=== PATIENT | male | born 1960 | race Caucasian/White ===

== ENCOUNTER 2018-08-18 13:45 | Inpatient (IN) | payer MEDICARE, MEDICAID ==
[~2018-08-18] VITALS: Ht 182.9 cm; Wt 89.4 kg
[2018-08-18 14:20] LABS: BASO # 0.1 x10^3/uL (0.0-0.2); BASO % 1 % (0-3); EOS # 0.2 x10^3/uL (0.0-0.7); EOS % 2 % (0-3); HEMATOCRIT 44.5 % (39.0-53.0); LYMPH # 2.9 x10^3/uL (1.0-4.8); LYMPH % 30 % (24-48); MEAN CORPUSCULAR HEMOGLOBIN 31 pg (25-35); MEAN CORPUSCULAR HGB CONC 34 g/dL (31-37); MEAN CORPUSCULAR VOLUME 91 fL (79-100); MONO % 10 % (0-9); NEUT # 5.5 x10^3uL (1.8-7.7); NEUT % 57 % (31-73); PLATELET COUNT 234 x10^3/uL (140-400); RED BLOOD COUNT 4.87 x10^6/uL (4.30-5.70); RED CELL DISTRIBUTION WIDTH 13.3 % (11.5-14.5); WHITE BLOOD COUNT 9.6 x10^3/uL (4.0-11.0)
[2018-08-18 14:40] LABS: ALBUMIN 4.4 g/dL (3.4-5.0); ALBUMIN/GLOBULIN RATIO 1.5 (1.0-1.7); CALCIUM 8.8 mg/dL (8.5-10.1); CREATININE 1.3 mg/dL (0.7-1.3); GFR 56.3; MAGNESIUM 1.9 mg/dL (1.8-2.4); POTASSIUM 4.3 mmol/L (3.5-5.1); TOTAL BILIRUBIN 0.3 mg/dL (0.2-1.0); TOTAL PROTEIN 7.4 g/dL (6.4-8.2)
[2018-08-18] MEDS ORDERED: DEXTROSE ORAL GEL 15 GM TUBE. ONE (14:42)
[2018-08-18] MEDS ORDERED: DEXTROSE 50% 25 GM / 50ML DISP.SYRIN. IV ONE ×2 (14:42→14:45)
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
[2018-08-18 16:56] LABS: BACTERIA,URINE FEW /HPF (0-FEW); BILIRUBIN,URINE NEG (NEG); CLARITY,URINE CLEAR; COLOR,URINE YELLOW; GLUCOSE,URINE NEG (NEG); NITRITE,URINE NEG (NEG); RBC,URINE 0 /HPF (0-2); UROBILINOGEN,URINE 0.2 mg/dL (0.2 mg/dL); WBC,URINE RARE /HPF (0-4)
[2018-08-18 18:32] VITALS: BP 137/70
[2018-08-18] MEDS ORDERED: ATOR10TA60 PO (20:05)
[2018-08-18] MEDS ORDERED: BUPR150T11 PO (20:05)
[2018-08-18] MEDS ORDERED: LEVO150T PO (20:05)
[2018-08-18] MEDS ORDERED: MELA3TAB2 PO (20:05)
[2018-08-18] MEDS ORDERED: GABA300C8 PO (20:12)
[2018-08-18] MEDS ORDERED: INSU100V13 SQ (20:12)
[2018-08-18] MEDS ORDERED: TAMS0.4C2 PO (20:12)
[2018-08-18] MEDS ORDERED: RANI150T2 PO (20:12)
[2018-08-18] MEDS ORDERED: INSU100I17 SQ (20:12)
[2018-08-18] MEDS: GABAPENTIN 300 MG CAPSULE. PO SCH (20:47)
[2018-08-18] MEDS ORDERED: INSULIN GLARGINE 300 UNITS/3 ML INSULN.PEN. SQ SCH (21:00)
[2018-08-18] MEDS ORDERED: FAMOTIDINE 20 MG TABLET PO SCH (21:00)
[2018-08-18] MEDS ORDERED: ATORVASTATIN CALCIUM 10 MG TABLET. PO SCH (21:00)
[2018-08-18] MEDS ORDERED: TAMSULOSIN 0.4 MG CAP.ER.24H. PO SCH (21:00)
[2018-08-18] MEDS ORDERED: MELATONIN 3 MG TABLET PO SCH (21:00)
[2018-08-18] MEDS ORDERED: LOPERAMIDE 2 MG CAPSULE PO PRN (22:45)
[2018-08-18] MEDS ORDERED: SIMETHICONE 80 MG TAB.CHEW PO PRN (22:45)
[2018-08-18] MEDS ORDERED: ACETAMINOPHEN 325 MG TABLET PO PRN (22:45)
[2018-08-18] MEDS ORDERED: LOPE2CAP PO (22:55)
[2018-08-18] MEDS ORDERED: POTA10TA10 PO (22:55)
[2018-08-18] MEDS ORDERED: LISI-338 PO (22:55)
[2018-08-18] MEDS ORDERED: FERR325T14 PO (22:55)
[2018-08-18] MEDS ORDERED: ASPI81TA50 PO (22:55)
[2018-08-18] MEDS ORDERED: LORA10TA3 PO (22:55)
[2018-08-18] MEDS ORDERED: THIA100T57 PO (22:55)
[2018-08-18] MEDS ORDERED: CHOL10003 PO (22:55)
[2018-08-18] MEDS ORDERED: CYAN10005 PO (22:55)
[2018-08-18] MEDS ORDERED: SIME125T39 PO (22:55)
[2018-08-18] MEDS ORDERED: ACET325T9 PO (22:55)
--- NOTE | 2018-08-18 23:05 | PDOC ---
Exam Note: Jaime Note: Please also refer to the separate dictated note~for this date of service dictated separately. Discussed the patient with Nursing staff reviewed the chart.~Reviewed interim history and current functioning. Reviewed vital signs,~ Labs/ Radiology~and current medications noted below. Continue current treatment with the changes noted in the dictated addendum note Assessment: Vital Signs: Vital Signs Date Time Temp Pulse Resp B/P (MAP) Pulse Ox O2 Delivery O2 Flow Rate FiO2 08/18/18 20:00 Room Air 08/18/18 18:32 97.5 66 20 137/70 (92) 99 Labs: Laboratory Tests Test 08/18/18 14:06 08/18/18 14:45 08/18/18 15:21 08/18/18 16:34 White Blood Count 9.6 x10^3/uL (4.0-11.0) Red Blood Count 4.87 x10^6/uL (4.30-5.70) Hemoglobin 15.0 g/dL (13.0-17.5) Hematocrit 44.5 % (39.0-53.0) Mean Corpuscular Volume 91 fL (79-100) Mean Corpuscular Hemoglobin 31 pg (25-35) Mean Corpuscular Hemoglobin Concent 34 g/dL (31-37) Red Cell Distribution Width 13.3 % (11.5-14.5) Platelet Count 234 x10^3/uL (140-400) Neutrophils (%) (Auto) 57 % (31-73) Lymphocytes (%) (Auto) 30 % (24-48) Monocytes (%) (Auto) 10 % (0-9) H Eosinophils (%) (Auto) 2 % (0-3) Basophils (%) (Auto) 1 % (0-3) Neutrophils # (Auto) 5.5 x10^3uL (1.8-7.7) Lymphocytes # (Auto) 2.9 x10^3/uL (1.0-4.8) Monocytes # (Auto) 1.0 x10^3/uL (0.0-1.1) Eosinophils # (Auto) 0.2 x10^3/uL (0.0-0.7) Basophils # (Auto) 0.1 x10^3/uL (0.0-0.2) Sodium Level 141 mmol/L (136-145) Potassium Level 4.3 mmol/L (3.5-5.1) Chloride Level 107 mmol/L (98-107) Carbon Dioxide Level 23 mmol/L (21-32) Anion Gap 11 (6-14) Blood Urea Nitrogen 18 mg/dL (8-26) Creatinine 1.3 mg/dL (0.7-1.3) Estimated GFR (Cockcroft-Gault) 56.3 BUN/Creatinine Ratio 14 (6-20) Glucose Level 38 mg/dL (70-99) *L Calcium Level 8.8 mg/dL (8.5-10.1) Magnesium Level 1.9 mg/dL (1.8-2.4) Total Bilirubin 0.3 mg/dL (0.2-1.0) Aspartate Amino Transferase (AST) 33 U/L (15-37) Alanine Aminotransferase (ALT) 74 U/L (16-63) H Alkaline Phosphatase 88 U/L (46-116) Total Protein 7.4 g/dL (6.4-8.2) Albumin 4.4 g/dL (3.4-5.0) Albumin/Globulin Ratio 1.5 (1.0-1.7) Glucose (Fingerstick) 35 mg/dL (70-99) *L 128 mg/dL (70-99) H Urine Collection Type Void Urine Color Yellow Urine Clarity Clear Urine pH 5.5 Urine Specific [place] 1.015 Urine Protein Neg (NEG-TRACE) Urine Glucose (UA) Neg mg/dL (NEG) Urine Ketones (Stick) Neg mg/dL (NEG) Urine Blood Neg (NEG) Urine Nitrite Neg (NEG) Urine Bilirubin Neg (NEG) Urine Urobilinogen Dipstick 0.2 mg/dL (0.2 mg/dL) Urine Leukocyte Esterase Neg (NEG) Urine RBC 0 /HPF (0-2) Urine WBC Rare /HPF (0-4) Urine Squamous Epithelial Cells None /LPF Urine Bacteria Few /HPF (0-FEW) Test 08/18/18 16:39 Glucose (Fingerstick) 271 mg/dL (70-99) H Current Medications: Meds: Current Medications Glucose (Insta-Glucose) 15 gm STK-MED ONCE .ROUTE ; Start 08/18/18 at 14:42; Stop 08/18/18 at 14:44; Status DC Dextrose 25 gm STK-MED ONCE IV ; Start 08/18/18 at 14:42; Stop 08/18/18 at 14:44 ; Status DC Dextrose 25 gm 1X ONCE IV Last administered on 08/18/18at 14:54; Start at 14:45; Stop 08/18/18 at 15:42; Status DC Tamsulosin HCl (Flomax) 0.4 mg HS PO Last administered on 08/18/18 20:47; Start 08/18/18 at 21:00 Atorvastatin Calcium (Lipitor) 10 mg QHS PO Last administered on 08/18/18 20: 47; Start 08/18/18 at 21:00 Gabapentin (Neurontin) 300 mg BID PO Last administered on 08/18/18 20:47; Start 08/18/18 at 21:00 Insulin Glargine (Lantus) 14 units BID SQ Last administered on 08/18/18 21:04 ; Start 08/18/18 at 21:00 Melatonin 6 mg QHS PO Last administered on 08/18/18 20:47; Start 08/18/18 at 21:00 Famotidine (Pepcid) 20 mg QHS PO Last administered on 08/18/18 20:47; Start at 21:00 Active Scripts Active Reported Gas Relief (Simethicone) 125 Mg Tab.chew 125 Mg PO Q6HRS PRN Tylenol (Acetaminophen) 325 Mg Tablet 500 Mg PO Q6HRS PRN Aspir-Low (Aspirin) 81 Mg Tablet.dr 1 Tab PO DAILY Lisinopril 5 Mg Tablet 1 Tab PO BID Ferrous Sulfate 325 Mg Tablet 1 Tab PO BID Vitamin B-1 (Thiamine Hcl) 100 Mg Tablet 100 Mg PO DAILY Potassium Chloride 10 Meq Tablet.er 20 Meq PO DAILY Loratadine 10 Mg Tablet 1 Tab PO DAILY Vitamin B-12 (Cyanocobalamin (Vitamin B-12)) 1,000 Mcg Tablet 1 Tab PO DAILY Vitamin D3 (Cholecalciferol (Vitamin D3)) 1,000 Unit Tablet 1 Tab PO DAILY Loperamide (Loperamide Hcl) 2 Mg Capsule 2 Mg PO Q4HRS PRN Novolog Flexpen (Insulin Aspart) 100 Unit/1 Ml Insuln.pen 8 Unit SQ TIDAC Levemir (Insulin Detemir) 100 Unit/1 Ml Vial 14 Unit SQ BID PRN Ranitidine Hcl 150 Mg Tablet 1 Tab PO HS Gabapentin 300 Mg Capsule 1 Cap PO BID Tamsulosin Hcl 0.4 Mg Cap.er.24h 1 Cap PO HS Melatonin 3 Mg Tablet 5 Mg PO HS Synthroid (Levothyroxine Sodium) 150 Mcg Tablet 1 Tab PO DAILY06 Bupropion Hcl Sr (Bupropion Hcl) 150 Mg Tablet.er 1 Tab PO DAILY Atorvastatin Calcium 10 Mg Tablet 1 Tab PO HS I have reviewed the current psychotropics carefully including drug interactions. Risk benefit ratio favors no change other than as noted in my dictated progress note. Diagnosis: Problems: (1) Hypoglycemia (2) Behavioral problem JEB WOODS MD Aug 18, 2018 23:04
[2018-08-18 23:17] VITALS: BP 121/73
[2018-08-19 05:06] VITALS: BP 102/63
[2018-08-19] MEDS ORDERED: LEVOTHYROXINE 150 MCG TABLET PO SCH (06:00)
[2018-08-19] MEDS ORDERED: INSULIN LISPRO 300 UNITS/3 ML INSULN.PEN. SQ SCH ×2 (07:30→11:30)
[2018-08-19] MEDS ORDERED: ASPIRIN 81 MG TAB.CHEW PO SCH (08:00)
[2018-08-19] MEDS ORDERED: POTASSIUM CHLORIDE 20 MEQ TABLET.ER. PO SCH (08:00)
[2018-08-19] MEDS: GABAPENTIN 300 MG CAPSULE. PO SCH (08:05)
[2018-08-19] MEDS ORDERED: THIAMINE 100 MG TABLET. PO SCH (09:00)
[2018-08-19] MEDS ORDERED: LISINOPRIL 5 MG TABLET. PO SCH (09:00)
[2018-08-19] MEDS ORDERED: CYANOCOBALAMIN (VITAMIN B-12) 1,000 MCG TABLET. PO SCH (09:00)
[2018-08-19] MEDS ORDERED: FERROUS SULFATE 325 MG TABLET. PO SCH (09:00)
[2018-08-19] MEDS ORDERED: CHOLECALCIFEROL (VITAMIN D3) 1,000 UNIT TABLET PO SCH (09:00)
[2018-08-19] MEDS ORDERED: CETIRIZINE HCL 10 MG TABLET PO SCH (09:00)
[2018-08-19] MEDS ORDERED: buPROPion XL 150 MG TAB.ER.24H PO SCH (09:00)
[2018-08-19 11:03] VITALS: BP 121/71
--- NOTE | 2018-08-19 11:16 | EKG ---
[address] [address] Test Date: 2018-08-18 Test Time: 14:02:53 Pat Name: LETI CHAPARRO Department: Room: Gender: M Refinery Operator Reforming Unit: KALEY : 1960 Requested By: BRANDEI PERRIN Order Number: [id number] Reading MD: Measurements Intervals [place] Rate: 67 P: 63 LA: 174 QRS: -38 QRSD: 96 T: 42 QT: 376 QTc: 400 Interpretive Statements SINUS RHYTHM ABNORMAL LEFT AXIS DEVIATION LEFT ANTERIOR FASCICULAR BLOCK ABNORMAL ECG RI6.01 No previous ECG available for comparison
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
[2018-08-19] MEDS ORDERED: INSU100I13 SQ (16:02)
[2018-08-19] MEDS ORDERED: INSU100V SQ (16:02)
[2018-08-19] MEDS ORDERED: INSULIN GLARGINE 300 UNITS/3 ML INSULN.PEN. SQ SCH (21:00)
== END 2018-08-19 14:40 | DRG 637 ==
LOC: ER 13:45 → 1 SOUTH 15:36
PROVIDERS: ADMIT Internal Medicine; ATTEND Internal Medicine
DX: E11.649 Type 2 diabetes mellitus with hypoglycemia without coma (principal); I61.9 Nontraumatic intracerebral hemorrhage, unspecified; I10 Essential (primary) hypertension; K21.9 Gastro-esophageal reflux disease without esophagitis; N40.0 Benign prostatic hyperplasia without lower urinary tract symptoms; Z79.4 Long term (current) use of insulin; Z87.891 Personal history of nicotine dependence; F10.10 Alcohol abuse, uncomplicated; F32.9 Major depressive disorder, single episode, unspecified; Z88.5 Allergy status to narcotic agent; Z88.8 Allergy status to other drugs, medicaments and biological substances
CPT/HCPCS: 36415; 80053; 81001; 82947; 83735; 85025; 87641; 93005; 96374; J1815; 99285-25

== ENCOUNTER 2018-08-19 15:05 | Inpatient (IN) | payer MEDICARE, MEDICAID ==
[~2018-08-19] VITALS: Ht 182.9 cm; Wt 91.7 kg
[~2018-08-19 15:05] MED LIST: ACET325T9 PO; ASPI81TA50 PO; ATOR10TA60 PO; BUPR150T11 PO; CHOL10003 PO; CYAN-25 PO; FERR325T14 PO; GABA300C8 PO; INSU100I17 SQ; INSU100V13 SQ; LEVO150T PO; LISI-338 PO; LOPE2CAP PO; LORA10TA3 PO; MELA3TAB2 PO; POTA10TA10 PO; RANI150T2 PO; SIME125T49 PO; TAMS0.4C2 PO; THIA100T57 PO
[2018-08-19 15:07] VITALS: BP 131/77
[2018-08-19] MEDS ORDERED: METHYL SALICYLATE/MENTHOL TOPICAL OINTMENT 29GM TUBE. TP PRN (15:15)
[2018-08-19] MEDS ORDERED: MAGNESIUM HYDROXIDE 2,400 MG/30 ML ORAL.SUSP. PO PRN (15:15)
[2018-08-19] MEDS ORDERED: MAG HYDROX/AL HYDROX/SIMETH 30 ML ORAL.SUSP PO PRN (15:15)
[2018-08-19] MEDS ORDERED: ACETAMINOPHEN 325 MG TABLET PO PRN (15:15)
[2018-08-19] MEDS ORDERED: INSU100V SQ (16:02)
[2018-08-19] MEDS ORDERED: INSU100I13 SQ (16:02)
[2018-08-19 16:09] VITALS: BP 131/77
[2018-08-19] MEDS ORDERED: SIMETHICONE 80 MG TAB.CHEW PO PRN (16:15)
[2018-08-19] MEDS ORDERED: LOPERAMIDE 2 MG CAPSULE PO PRN (16:15)
[2018-08-19] MEDS: INSULIN LISPRO 300 UNITS/3 ML INSULN.PEN. SQ SCH (17:40)
[2018-08-19] MEDS: ATORVASTATIN CALCIUM 10 MG TABLET. PO SCH (20:22)
[2018-08-19] MEDS: TAMSULOSIN 0.4 MG CAP.ER.24H. PO SCH (20:23)
[2018-08-19] MEDS: FERROUS SULFATE 325 MG TABLET. PO SCH (20:23)
[2018-08-19] MEDS: GABAPENTIN 300 MG CAPSULE. PO SCH (20:23)
[2018-08-19] MEDS: FAMOTIDINE 20 MG TABLET PO SCH (20:23)
[2018-08-19] MEDS: MELATONIN 3 MG TABLET PO SCH (20:23)
[2018-08-19] MEDS: LISINOPRIL 5 MG TABLET. PO SCH (20:23)
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
[2018-08-19] MEDS ORDERED: INSULIN GLARGINE 300 UNITS/3 ML INSULN.PEN. SQ SCH (21:00)
--- NOTE | 2018-08-19 22:37 | PDOC ---
Exam Note: Jaime Note: Please also refer to the separate dictated note~for this date of service dictated separately.~Patient seen individually. Discussed the patient with Nursing staff reviewed the chart.~Reviewed interim history and current functioning. Reviewed vital signs,~Labs/ Radiology~and current medications noted below. Continue current treatment with the changes noted in the dictated addendum note Assessment: Vital Signs: Vital Signs Date Time Temp Pulse Resp B/P (MAP) Pulse Ox O2 Delivery O2 Flow Rate FiO2 08/19/18 20:23 71 131/77 08/19/18 16:09 97.7 20 93 Room Air Labs: Laboratory Tests Test 08/19/18 16:57 08/19/18 19:23 Glucose (Fingerstick) 381 mg/dL (70-99) H 220 mg/dL (70-99) H Current Medications: Meds: Current Medications Acetaminophen (Tylenol) 650 mg PRN Q6HRS PRN PO PAIN / TEMP; Start 08/19/18 at 15:15; Status Cancel Multi-Ingredient Ointment (Analgesic [place]) 1 del PRN QID PRN TP MUSCLE PAIN; Start 08/19/18 at 15:15 Al Hydroxide/Mg Hydroxide (Mylanta Plus Xs) 15 ml PRN AFTMEALHC PRN PO DYSPEPSIA; Start 08/19/18 at 15:15 Magnesium Hydroxide (Milk Of Magnesia) 2,400 mg PRN QHS PRN PO CONSTIPATION; Start 08/19/18 at 15:15 Nicotine (Nicoderm Cq 14mg) 1 patch DAILY TD ; Start 08/20/18 at 09:00 Acetaminophen (Tylenol) 500 mg PRN Q6HRS PRN PO PAIN; Start 08/19/18 at 16:00 Vitamin D (Vitamin D3) 1,000 unit DAILY PO ; Start 08/20/18 at 09:00 Cyanocobalamin (Vitamin B-12) 1,000 mcg DAILY PO ; Start 08/20/18 at 09:00 Ferrous Sulfate (Feosol) 325 mg BID PO Last administered on 08/19/18at 20:23; Start 08/19/18 at 21:00 Tamsulosin HCl (Flomax) 0.4 mg HS PO Last administered on 08/19/18at 20:23; Start 08/19/18 at 21:00 Aspirin (Aspirin Enteric Coated) 81 mg DAILY PO ; Start 08/20/18 at 09:00 Atorvastatin Calcium (Lipitor) 10 mg QHS PO Last administered on 08/19/18at 20: 22; Start 08/19/18 at 21:00 Bupropion HCl (Wellbutrin Xl) 150 mg DAILY PO ; Start 08/20/18 at 09:00 Gabapentin (Neurontin) 300 mg BID PO Last administered on 08/19/18at 20:23; Start 08/19/18 at 21:00 Levothyroxine Sodium (Synthroid) 150 mcg DAILY06 PO ; Start 08/20/18 at 06:00 Lisinopril (Prinivil) 5 mg BID PO Last administered on 08/19/18at 20:23; Start 08/19/18 at 21:00 Loperamide HCl (Imodium) 2 mg PRN Q4HRS PRN PO DIARRHEA; Start 08/19/18 at 16: 15 Cetirizine HCl (ZyrTEC) 10 mg DAILY PO ; Start 08/20/18 at 09:00 Melatonin 6 mg QHS PO Last administered on 08/19/18at 20:23; Start 08/19/18 at 21:00 Potassium Chloride (Klor-Con) 20 meq DAILY PO ; Start 08/20/18 at 09:00 Famotidine (Pepcid) 20 mg QHS PO Last administered on 08/19/18at 20:23; Start at 21:00 Simethicone (Gas-X) 120 mg PRN Q6HRS PRN PO GAS / BLOATING; Start 08/19/18 at 16:15 Thiamine HCl (Vitamin B-1) 100 mg DAILY PO ; Start 08/20/18 at 09:00 Insulin Glargine (Lantus) 14 units QHS SQ Last administered on 08/19/18at 20:27 ; Start 08/19/18 at 21:00 Non-Formulary Medication (Insulin Lispro (Humalog)) 5 unit TIDAC SQ ; Start at 07:30; Stop 08/20/18 at 07:30; Status DC Insulin Human Lispro (HumaLOG) 5 units TIDAC SQ Last administered on 08/19/18at 17:40; Start 08/19/18 at 17:30 Active Scripts Active Reported Humalog (Insulin Lispro) 100 Unit/1 Ml Vial 5 Unit SQ TIDAC Lantus Solostar (Insulin Glargine,Hum.rec.anlog) 100 Unit/1 Ml Insuln.pen 14 Unit SQ QHS Gas Relief (Simethicone) 125 Mg Tab.chew 125 Mg PO Q6HRS PRN Tylenol (Acetaminophen) 325 Mg Tablet 500 Mg PO Q6HRS PRN Aspir-Low (Aspirin) 81 Mg Tablet.dr 1 Tab PO DAILY Lisinopril 5 Mg Tablet 1 Tab PO BID Ferrous Sulfate 325 Mg Tablet 1 Tab PO BID Vitamin B-1 (Thiamine Hcl) 100 Mg Tablet 100 Mg PO DAILY Potassium Chloride 10 Meq Tablet.er 20 Meq PO DAILY Loratadine 10 Mg Tablet 1 Tab PO DAILY Vitamin B-12 (Cyanocobalamin (Vitamin B-12)) 1,000 Mcg Tablet 1 Tab PO DAILY Vitamin D3 (Cholecalciferol (Vitamin D3)) 1,000 Unit Tablet 1 Tab PO DAILY Loperamide (Loperamide Hcl) 2 Mg Capsule 2 Mg PO Q4HRS PRN Ranitidine Hcl 150 Mg Tablet 1 Tab PO HS Gabapentin 300 Mg Capsule 1 Cap PO BID Tamsulosin Hcl 0.4 Mg Cap.er.24h 1 Cap PO HS Melatonin 3 Mg Tablet 5 Mg PO HS Synthroid (Levothyroxine Sodium) 150 Mcg Tablet 1 Tab PO DAILY06 Bupropion Hcl Sr (Bupropion Hcl) 150 Mg Tablet.er 1 Tab PO DAILY Atorvastatin Calcium 10 Mg Tablet 1 Tab PO HS I have reviewed the current psychotropics carefully including drug interactions. Risk benefit ratio favors no change other than as noted in my dictated progress note. Diagnosis: Problems: (1) Hypoglycemia (2) Behavioral problem (3) Bipolar 1 disorder, mixed, moderate (4) Impulse control disorder (5) Major depressive disorder, recurrent episode (6) Personality disorder in adult JEB WOODS MD Aug 19, 2018 22:37
[2018-08-20 04:09] LABS: THYROXINE 6.6 ug/dL (4.5-12.0)
[2018-08-20 05:52] VITALS: BP 119/68
[2018-08-20] MEDS: LEVOTHYROXINE 150 MCG TABLET PO SCH (05:52)
[2018-08-20 06:10] LABS: HEMOGLOBIN A1C 6.6 % (4.8-5.6)
[2018-08-20] MEDS ORDERED: INSULIN LISPRO 5 UNIT SQ SCH (07:30)
[2018-08-20] MEDS: GABAPENTIN 300 MG CAPSULE. PO SCH ×2 (08:46→20:18)
[2018-08-20] MEDS: FERROUS SULFATE 325 MG TABLET. PO SCH ×2 (08:47→20:19)
[2018-08-20] MEDS: LISINOPRIL 5 MG TABLET. PO SCH ×2 (08:47→20:19)
[2018-08-20] MEDS: buPROPion XL 150 MG TAB.ER.24H PO SCH (08:51)
[2018-08-20] MEDS: CYANOCOBALAMIN (VITAMIN B-12) 1,000 MCG TABLET. PO SCH (08:51)
[2018-08-20] MEDS: POTASSIUM CHLORIDE 20 MEQ TABLET.ER. PO SCH (08:52)
[2018-08-20] MEDS: ASPIRIN ENTERIC COATED 81 MG TABLET.DR. PO SCH (08:52)
[2018-08-20] MEDS: THIAMINE 100 MG TABLET. PO SCH (08:52)
[2018-08-20] MEDS: CETIRIZINE HCL 10 MG TABLET PO SCH (08:52)
[2018-08-20] MEDS: CHOLECALCIFEROL (VITAMIN D3) 1,000 UNIT TABLET PO SCH (08:52)
[2018-08-20] MEDS: NICOTINE 14MG PATCH. TD SCH (08:52)
[2018-08-20] MEDS: INSULIN LISPRO 300 UNITS/3 ML INSULN.PEN. SQ SCH ×3 (08:53→18:14)
--- NOTE | 2018-08-20 16:12 | RAD ---
Ultrasound scrotum 08/20/2017 CLINICAL INDICATION: Testicular swelling. COMPARISON: None. FINDINGS: Right testis measures 5.8 x 2.7 x 3.2 cm with homogeneous echotexture and preservation of the intratesticular blood flow. There is a large right hydrocele. The right epididymis is not well visualized. The left testis is absent consistent with reported prior colectomy. IMPRESSION: 1. Large right hydrocele. 2. No testicular torsion. 3. Left orchiectomy. Electronically signed by: Cain Rosenberg MD (08/20/2018 4:07 PM) [facility]
[2018-08-20 16:28] VITALS: BP 164/85
[2018-08-20 17:07] LABS: THYROID STIM HORMONE (TSH) 3.022 uIU/mL (0.358-3.740)
[2018-08-20] MEDS: ATORVASTATIN CALCIUM 10 MG TABLET. PO SCH (20:18)
[2018-08-20] MEDS: FAMOTIDINE 20 MG TABLET PO SCH (20:18)
[2018-08-20] MEDS: TAMSULOSIN 0.4 MG CAP.ER.24H. PO SCH (20:18)
[2018-08-20] MEDS: MELATONIN 3 MG TABLET PO SCH (20:19)
[2018-08-20] MEDS: INSULIN GLARGINE 300 UNITS/3 ML INSULN.PEN. SQ SCH (20:25)
--- NOTE | 2018-08-20 22:30 | PDOC ---
Exam Note: Jaime Note: Please also refer to the separate dictated note~for this date of service dictated separately.~Patient seen individually. Discussed the patient with Nursing staff reviewed the chart.~Reviewed interim history and current functioning. Reviewed vital signs,~Labs/ Radiology~and current medications noted below. Continue current treatment with the changes noted in the dictated addendum note Assessment: Vital Signs: Vital Signs Date Time Temp Pulse Resp B/P (MAP) Pulse Ox O2 Delivery O2 Flow Rate FiO2 08/20/18 20:19 61 164/85 08/20/18 16:28 98.6 18 99 08/19/18 16:09 Room Air I&O Intake and Output 08/20/18 07:01 Intake Total 360 ml Balance 360 ml Intake Oral 360 ml Labs: Laboratory Tests Test 08/20/18 07:53 08/20/18 11:56 08/20/18 17:16 08/20/18 19:15 Glucose (Fingerstick) 148 mg/dL (70-99) H 250 mg/dL (70-99) H 206 mg/dL (70-99) H 251 mg/dL (70-99) H Current Medications: Meds: Current Medications Acetaminophen (Tylenol) 650 mg PRN Q6HRS PRN PO PAIN / TEMP; Start 08/19/18 at 15:15; Status Cancel Multi-Ingredient Ointment (Analgesic [place]) 1 del PRN QID PRN TP MUSCLE PAIN; Start 08/19/18 at 15:15 Al Hydroxide/Mg Hydroxide (Mylanta Plus Xs) 15 ml PRN AFTMEALHC PRN PO DYSPEPSIA; Start 08/19/18 at 15:15 Magnesium Hydroxide (Milk Of Magnesia) 2,400 mg PRN QHS PRN PO CONSTIPATION; Start 08/19/18 at 15:15 Nicotine (Nicoderm Cq 14mg) 1 patch DAILY TD Last administered on 08/20/18at 08: 52; Start 08/20/18 at 09:00 Acetaminophen (Tylenol) 500 mg PRN Q6HRS PRN PO PAIN; Start 08/19/18 at 16:00 Vitamin D (Vitamin D3) 1,000 unit DAILY PO Last administered on 08/20/18at 08:52 ; Start 08/20/18 at 09:00 Cyanocobalamin (Vitamin B-12) 1,000 mcg DAILY PO Last administered on 08:51; Start 08/20/18 at 09:00 Ferrous Sulfate (Feosol) 325 mg BID PO Last administered on 08/20/18 20:19; Start 08/19/18 at 21:00 Tamsulosin HCl (Flomax) 0.4 mg HS PO Last administered on 08/20/18 20:18; Start 08/19/18 at 21:00 Aspirin (Aspirin Enteric Coated) 81 mg DAILY PO Last administered on 08/20/18 08:52; Start 08/20/18 at 09:00 Atorvastatin Calcium (Lipitor) 10 mg QHS PO Last administered on 08/20/18 20: 18; Start 08/19/18 at 21:00 Bupropion HCl (Wellbutrin Xl) 150 mg DAILY PO Last administered on 08/20/18 08 :51; Start 08/20/18 at 09:00 Gabapentin (Neurontin) 300 mg BID PO Last administered on 08/20/18 20:18; Start 08/19/18 at 21:00 Levothyroxine Sodium (Synthroid) 150 mcg DAILY06 PO Last administered on 05:52; Start 08/20/18 at 06:00 Lisinopril (Prinivil) 5 mg BID PO Last administered on 08/20/18 20:19; Start 08/19/18 at 21:00 Loperamide HCl (Imodium) 2 mg PRN Q4HRS PRN PO DIARRHEA; Start 08/19/18 at 16: 15 Cetirizine HCl (ZyrTEC) 10 mg DAILY PO Last administered on 08/20/18 08:52; Start 08/20/18 at 09:00 Melatonin 6 mg QHS PO Last administered on 08/20/18 20:19; Start 08/19/18 at 21:00 Potassium Chloride (Klor-Con) 20 meq DAILY PO Last administered on 08/20/18 08 :52; Start 08/20/18 at 09:00 Famotidine (Pepcid) 20 mg QHS PO Last administered on 08/20/18 20:18; Start at 21:00 Simethicone (Gas-X) 120 mg PRN Q6HRS PRN PO GAS / BLOATING; Start 08/19/18 at 16:15 Thiamine HCl (Vitamin B-1) 100 mg DAILY PO Last administered on 08/20/18at 08:52 ; Start 08/20/18 at 09:00 Insulin Glargine (Lantus) 14 units QHS SQ Last administered on 08/19/18at 20:27 ; Start 08/19/18 at 21:00; Stop 08/20/18 at 12:53; Status DC Non-Formulary Medication (Insulin Lispro (Humalog)) 5 unit TIDAC SQ ; Start at 07:30; Stop 08/20/18 at 07:30; Status DC Insulin Human Lispro (HumaLOG) 5 units TIDAC SQ Last administered on 08/20/18at 12:13; Start 08/19/18 at 17:30; Stop 08/20/18 at 12:53; Status DC Insulin Glargine (Lantus) 14 units BID SQ Last administered on 08/20/18at 20:25 ; Start 08/20/18 at 21:00 Insulin Human Lispro (HumaLOG) 8 units TIDAC SQ Last administered on 08/20/18at 18:14; Start 08/20/18 at 16:30 Active Scripts Active Reported Humalog (Insulin Lispro) 100 Unit/1 Ml Vial 5 Unit SQ TIDAC Lantus Solostar (Insulin Glargine,Hum.rec.anlog) 100 Unit/1 Ml Insuln.pen 14 Unit SQ QHS Gas Relief (Simethicone) 125 Mg Tab.chew 125 Mg PO Q6HRS PRN Tylenol (Acetaminophen) 325 Mg Tablet 500 Mg PO Q6HRS PRN Aspir-Low (Aspirin) 81 Mg Tablet.dr 1 Tab PO DAILY Lisinopril 5 Mg Tablet 1 Tab PO BID Ferrous Sulfate 325 Mg Tablet 1 Tab PO BID Vitamin B-1 (Thiamine Hcl) 100 Mg Tablet 100 Mg PO DAILY Potassium Chloride 10 Meq Tablet.er 20 Meq PO DAILY Loratadine 10 Mg Tablet 1 Tab PO DAILY Vitamin B-12 (Cyanocobalamin (Vitamin B-12)) 1,000 Mcg Tablet 1 Tab PO DAILY Vitamin D3 (Cholecalciferol (Vitamin D3)) 1,000 Unit Tablet 1 Tab PO DAILY Loperamide (Loperamide Hcl) 2 Mg Capsule 2 Mg PO Q4HRS PRN Ranitidine Hcl 150 Mg Tablet 1 Tab PO HS Gabapentin 300 Mg Capsule 1 Cap PO BID Tamsulosin Hcl 0.4 Mg Cap.er.24h 1 Cap PO HS Melatonin 3 Mg Tablet 5 Mg PO HS Synthroid (Levothyroxine Sodium) 150 Mcg Tablet 1 Tab PO DAILY06 Bupropion Hcl Sr (Bupropion Hcl) 150 Mg Tablet.er 1 Tab PO DAILY Atorvastatin Calcium 10 Mg Tablet 1 Tab PO HS I have reviewed the current psychotropics carefully including drug interactions. Risk benefit ratio favors no change other than as noted in my dictated progress note. Diagnosis: Problems: (1) Hypoglycemia (2) Behavioral problem (3) Bipolar 1 disorder, mixed, moderate (4) Impulse control disorder (5) Major depressive disorder, recurrent episode (6) Personality disorder in adult JEB WOODS MD Aug 20, 2018 22:30
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
[2018-08-21] MEDS: LEVOTHYROXINE 150 MCG TABLET PO SCH (06:03)
[2018-08-21 06:50] VITALS: BP 105/61
[2018-08-21] MEDS: LISINOPRIL 5 MG TABLET. PO SCH ×2 (07:56→21:01)
[2018-08-21] MEDS: CETIRIZINE HCL 10 MG TABLET PO SCH (07:56)
[2018-08-21] MEDS: NICOTINE 14MG PATCH. TD SCH (07:56)
[2018-08-21] MEDS: THIAMINE 100 MG TABLET. PO SCH (07:56)
[2018-08-21] MEDS: POTASSIUM CHLORIDE 20 MEQ TABLET.ER. PO SCH (07:57)
[2018-08-21] MEDS: FERROUS SULFATE 325 MG TABLET. PO SCH ×2 (07:57→21:01)
[2018-08-21] MEDS: GABAPENTIN 300 MG CAPSULE. PO SCH ×2 (07:57→21:01)
[2018-08-21] MEDS: CYANOCOBALAMIN (VITAMIN B-12) 1,000 MCG TABLET. PO SCH (07:57)
[2018-08-21] MEDS: ASPIRIN ENTERIC COATED 81 MG TABLET.DR. PO SCH (07:57)
[2018-08-21] MEDS: CHOLECALCIFEROL (VITAMIN D3) 1,000 UNIT TABLET PO SCH (07:57)
[2018-08-21] MEDS: buPROPion XL 150 MG TAB.ER.24H PO SCH (07:57)
[2018-08-21] MEDS: INSULIN LISPRO 300 UNITS/3 ML INSULN.PEN. SQ SCH ×3 (07:58→17:20)
[2018-08-21] MEDS: INSULIN GLARGINE 300 UNITS/3 ML INSULN.PEN. SQ SCH ×2 (08:00→21:00)
[2018-08-21 16:13] VITALS: BP 132/58
[2018-08-21] MEDS: FAMOTIDINE 20 MG TABLET PO SCH (21:00)
[2018-08-21] MEDS: ATORVASTATIN CALCIUM 10 MG TABLET. PO SCH (21:01)
[2018-08-21] MEDS: MELATONIN 3 MG TABLET PO SCH (21:01)
[2018-08-21] MEDS: TAMSULOSIN 0.4 MG CAP.ER.24H. PO SCH (21:01)
[2018-08-21] MEDS: QUEtiapine 50 MG TABLET. PO SCH (21:02)
--- NOTE | 2018-08-21 22:27 | PDOC ---
Exam Note: Jaime Note: Please also refer to the separate dictated note~for this date of service dictated separately.~Patient seen individually. Discussed the patient with Nursing staff reviewed the chart.~Reviewed interim history and current functioning. Reviewed vital signs,~Labs/ Radiology~and current medications noted below. Continue current treatment with the changes noted in the dictated addendum note Assessment: Vital Signs: Vital Signs Date Time Temp Pulse Resp B/P (MAP) Pulse Ox O2 Delivery O2 Flow Rate FiO2 08/21/18 21:01 57 132/58 08/21/18 16:13 98.8 20 97 08/19/18 16:09 Room Air I&O Intake and Output 08/21/18 07:01 Intake Total 1325 ml Balance 1325 ml Intake Oral 1325 ml Labs: Laboratory Tests Test 08/21/18 07:33 08/21/18 12:12 08/21/18 16:56 08/21/18 19:23 Glucose (Fingerstick) 159 mg/dL (70-99) H 72 mg/dL (70-99) 126 mg/dL (70-99) H 93 mg/dL (70-99) Current Medications: Meds: Current Medications Acetaminophen (Tylenol) 650 mg PRN Q6HRS PRN PO PAIN / TEMP; Start 08/19/18 at 15:15; Status Cancel Multi-Ingredient Ointment (Analgesic [place]) 1 del PRN QID PRN TP MUSCLE PAIN; Start 08/19/18 at 15:15 Al Hydroxide/Mg Hydroxide (Mylanta Plus Xs) 15 ml PRN AFTMEALHC PRN PO DYSPEPSIA; Start 08/19/18 at 15:15 Magnesium Hydroxide (Milk Of Magnesia) 2,400 mg PRN QHS PRN PO CONSTIPATION; Start 08/19/18 at 15:15 Nicotine (Nicoderm Cq 14mg) 1 patch DAILY TD Last administered on 08/21/18at 07: 56; Start 08/20/18 at 09:00 Acetaminophen (Tylenol) 500 mg PRN Q6HRS PRN PO PAIN; Start 08/19/18 at 16:00 Vitamin D (Vitamin D3) 1,000 unit DAILY PO Last administered on 08/21/18at 07:57 ; Start 08/20/18 at 09:00 Cyanocobalamin (Vitamin B-12) 1,000 mcg DAILY PO Last administered on 07:57; Start 08/20/18 at 09:00 Ferrous Sulfate (Feosol) 325 mg BID PO Last administered on 08/21/18 21:01; Start 08/19/18 at 21:00 Tamsulosin HCl (Flomax) 0.4 mg HS PO Last administered on 08/21/18 21:01; Start 08/19/18 at 21:00 Aspirin (Aspirin Enteric Coated) 81 mg DAILY PO Last administered on 08/21/18 07:57; Start 08/20/18 at 09:00 Atorvastatin Calcium (Lipitor) 10 mg QHS PO Last administered on 08/21/18 21: 01; Start 08/19/18 at 21:00 Bupropion HCl (Wellbutrin Xl) 150 mg DAILY PO Last administered on 08/21/18 07 :57; Start 08/20/18 at 09:00 Gabapentin (Neurontin) 300 mg BID PO Last administered on 08/21/18 21:01; Start 08/19/18 at 21:00 Levothyroxine Sodium (Synthroid) 150 mcg DAILY06 PO Last administered on 06:03; Start 08/20/18 at 06:00 Lisinopril (Prinivil) 5 mg BID PO Last administered on 08/21/18 21:01; Start 08/19/18 at 21:00 Loperamide HCl (Imodium) 2 mg PRN Q4HRS PRN PO DIARRHEA; Start 08/19/18 at 16: 15 Cetirizine HCl (ZyrTEC) 10 mg DAILY PO Last administered on 08/21/18 07:56; Start 08/20/18 at 09:00 Melatonin 6 mg QHS PO Last administered on 08/21/18 21:01; Start 08/19/18 at 21:00 Potassium Chloride (Klor-Con) 20 meq DAILY PO Last administered on 08/21/18 07 :57; Start 08/20/18 at 09:00 Famotidine (Pepcid) 20 mg QHS PO Last administered on 08/21/18 21:00; Start at 21:00 Simethicone (Gas-X) 120 mg PRN Q6HRS PRN PO GAS / BLOATING; Start 08/19/18 at 16:15 Thiamine HCl (Vitamin B-1) 100 mg DAILY PO Last administered on 08/21/18at 07:56 ; Start 08/20/18 at 09:00 Insulin Glargine (Lantus) 14 units QHS SQ Last administered on 08/19/18at 20:27 ; Start 08/19/18 at 21:00; Stop 08/20/18 at 12:53; Status DC Non-Formulary Medication (Insulin Lispro (Humalog)) 5 unit TIDAC SQ ; Start at 07:30; Stop 08/20/18 at 07:30; Status DC Insulin Human Lispro (HumaLOG) 5 units TIDAC SQ Last administered on 08/20/18at 12:13; Start 08/19/18 at 17:30; Stop 08/20/18 at 12:53; Status DC Insulin Glargine (Lantus) 14 units BID SQ Last administered on 08/21/18at 08:00 ; Start 08/20/18 at 21:00 Insulin Human Lispro (HumaLOG) 8 units TIDAC SQ Last administered on 08/21/18at 17:20; Start 08/20/18 at 16:30 Quetiapine Fumarate (SEROquel) 50 mg QHS PO Last administered on 08/21/18at 21: 02; Start 08/21/18 at 21:00 Active Scripts Active Reported Humalog (Insulin Lispro) 100 Unit/1 Ml Vial 5 Unit SQ TIDAC Lantus Solostar (Insulin Glargine,Hum.rec.anlog) 100 Unit/1 Ml Insuln.pen 14 Unit SQ QHS Gas Relief (Simethicone) 125 Mg Tab.chew 125 Mg PO Q6HRS PRN Tylenol (Acetaminophen) 325 Mg Tablet 500 Mg PO Q6HRS PRN Aspir-Low (Aspirin) 81 Mg Tablet.dr 1 Tab PO DAILY Lisinopril 5 Mg Tablet 1 Tab PO BID Ferrous Sulfate 325 Mg Tablet 1 Tab PO BID Vitamin B-1 (Thiamine Hcl) 100 Mg Tablet 100 Mg PO DAILY Potassium Chloride 10 Meq Tablet.er 20 Meq PO DAILY Loratadine 10 Mg Tablet 1 Tab PO DAILY Vitamin B-12 (Cyanocobalamin (Vitamin B-12)) 1,000 Mcg Tablet 1 Tab PO DAILY Vitamin D3 (Cholecalciferol (Vitamin D3)) 1,000 Unit Tablet 1 Tab PO DAILY Loperamide (Loperamide Hcl) 2 Mg Capsule 2 Mg PO Q4HRS PRN Ranitidine Hcl 150 Mg Tablet 1 Tab PO HS Gabapentin 300 Mg Capsule 1 Cap PO BID Tamsulosin Hcl 0.4 Mg Cap.er.24h 1 Cap PO HS Melatonin 3 Mg Tablet 5 Mg PO HS Synthroid (Levothyroxine Sodium) 150 Mcg Tablet 1 Tab PO DAILY06 Bupropion Hcl Sr (Bupropion Hcl) 150 Mg Tablet.er 1 Tab PO DAILY Atorvastatin Calcium 10 Mg Tablet 1 Tab PO HS I have reviewed the current psychotropics carefully including drug interactions. Risk benefit ratio favors no change other than as noted in my dictated progress note. Diagnosis: Problems: (1) Hypoglycemia (2) Behavioral problem (3) Bipolar 1 disorder, mixed, moderate (4) Impulse control disorder (5) Major depressive disorder, recurrent episode (6) Personality disorder in adult JEB WOODS MD Aug 21, 2018 22:27
--- NOTE | 2018-08-22 00:57 | PN ---
DATE: 08/20/2018 This late entry for 08/20/2018 covers elements not covered in my initial note. SUBJECTIVE: I met with the patient in the evening. The patient slept 7-1/2 hours previous night. He has been rambling, somewhat circumstantial in his speech, hyperverbal per nursing report. Medical workup with Dr. Aguila for his hydrocele and he had an ultrasound. He has been somewhat obsessive, repetitive, ruminative about his insulin. We will get his past psychiatric records from [facility] in [place], [place] to clarify diagnosis of bipolar disorder. REVIEW OF SYSTEMS: No CV, , pulmonary, eye system symptoms on review other than above. MENTAL STATUS EXAM: Oriented to himself and situation. Speech is coherent, rapid at times, circumstantial in his thought processes. Abstraction fair, computation impaired, language function intact. Mood and affect somewhat anxious, labile at times. LABORATORY DATA: Reviewed. IMPRESSION: Psychotic disorder, unspecified, bipolar 1 disorder, mixed with history of psychotic features; anxiety disorder, unspecified. Rest unchanged. PLAN: No change from initial note. Await past records then decide further changes. MAN Nathan WOODS MD DR: CEM/augusto JOB#: [id number] / [id number]
[2018-08-22] MEDS: LEVOTHYROXINE 150 MCG TABLET PO SCH (05:58)
[2018-08-22 06:17] VITALS: BP 119/78
[2018-08-22] MEDS: NICOTINE 14MG PATCH. TD SCH (07:57)
[2018-08-22] MEDS: FERROUS SULFATE 325 MG TABLET. PO SCH ×2 (07:58→20:19)
[2018-08-22] MEDS: LISINOPRIL 5 MG TABLET. PO SCH ×2 (07:58→20:19)
[2018-08-22] MEDS: CYANOCOBALAMIN (VITAMIN B-12) 1,000 MCG TABLET. PO SCH (07:58)
[2018-08-22] MEDS: CHOLECALCIFEROL (VITAMIN D3) 1,000 UNIT TABLET PO SCH (07:58)
[2018-08-22] MEDS: buPROPion XL 150 MG TAB.ER.24H PO SCH (07:58)
[2018-08-22] MEDS: CETIRIZINE HCL 10 MG TABLET PO SCH (07:58)
[2018-08-22] MEDS: ASPIRIN ENTERIC COATED 81 MG TABLET.DR. PO SCH (07:58)
[2018-08-22] MEDS: THIAMINE 100 MG TABLET. PO SCH (07:58)
[2018-08-22] MEDS: POTASSIUM CHLORIDE 20 MEQ TABLET.ER. PO SCH (07:58)
[2018-08-22] MEDS: GABAPENTIN 300 MG CAPSULE. PO SCH ×2 (08:00→20:19)
[2018-08-22] MEDS: INSULIN LISPRO 300 UNITS/3 ML INSULN.PEN. SQ SCH ×3 (08:00→17:31)
[2018-08-22] MEDS: INSULIN GLARGINE 300 UNITS/3 ML INSULN.PEN. SQ SCH ×2 (08:03→20:20)
[2018-08-22 16:02] VITALS: BP 115/72
[2018-08-22] MEDS: FAMOTIDINE 20 MG TABLET PO SCH (20:18)
[2018-08-22] MEDS: MELATONIN 3 MG TABLET PO SCH (20:18)
[2018-08-22] MEDS: QUEtiapine 50 MG TABLET. PO SCH (20:18)
[2018-08-22] MEDS: ATORVASTATIN CALCIUM 10 MG TABLET. PO SCH (20:19)
[2018-08-22] MEDS: TAMSULOSIN 0.4 MG CAP.ER.24H. PO SCH (20:19)
--- NOTE | 2018-08-22 22:50 | PN ---
DATE: 08/21/2018 PSYCHIATRIC PROGRESS NOTE This is a late entry 08/21/2018 covers elements not covered in my initial note. SUBJECTIVE: I met with the patient in the evening. The patient was also staffed at a treatment team meeting with the entire team in the morning. The nursing report he slept 7-1/2 hours. Sexually inappropriate at times with staff requesting records from the [facility] in [place], [place] for his diagnosis of bipolar disorder. He is attention seeking per nursing report, does have a hydrocele, will defer to Dr. Aguila. He is hyperverbal at times, uncooperative per nursing. REVIEW OF SYSTEMS: As above. No CV, eye, ENT system symptoms on review. MENTAL STATUS EXAM: Oriented to himself, situation. Speech coherent, a little pressured. He has some loose associations. Abstraction fair, computation impaired, language function intact, attention span short. Mood and affect still somewhat anxious, labile. LABORATORY DATA: Reviewed. IMPRESSION: Probable bipolar 1 disorder, mixed; anxiety disorder, unspecified; psychotic disorder, unspecified. PLAN: Start Seroquel 50 mg at bedtime. Continue rest unchanged for now. MAN Nathan WOODS MD DR: CEM/augusto JOB#: [id number] / [id number]
--- NOTE | 2018-08-22 22:50 | PDOC ---
Exam Note: Jaime Note: Please also refer to the separate dictated note~for this date of service dictated separately.~Patient seen individually. Discussed the patient with Nursing staff reviewed the chart.~Reviewed interim history and current functioning. Reviewed vital signs,~Labs/ Radiology~and current medications noted below. Continue current treatment with the changes noted in the dictated addendum note Assessment: Vital Signs: Vital Signs Date Time Temp Pulse Resp B/P (MAP) Pulse Ox O2 Delivery O2 Flow Rate FiO2 08/22/18 20:19 54 115/72 08/22/18 16:02 98.7 20 99 Room Air I&O Intake and Output 08/22/18 07:01 Intake Total 1580 ml Balance 1580 ml Intake Oral 1580 ml Labs: Laboratory Tests Test 08/22/18 07:05 08/22/18 11:36 08/22/18 17:09 08/22/18 19:11 Glucose (Fingerstick) 190 mg/dL (70-99) H 237 mg/dL (70-99) H 92 mg/dL (70-99) 156 mg/dL (70-99) H Current Medications: Meds: Current Medications Acetaminophen (Tylenol) 650 mg PRN Q6HRS PRN PO PAIN / TEMP; Start 08/19/18 at 15:15; Status Cancel Multi-Ingredient Ointment (Analgesic [place]) 1 del PRN QID PRN TP MUSCLE PAIN; Start 08/19/18 at 15:15 Al Hydroxide/Mg Hydroxide (Mylanta Plus Xs) 15 ml PRN AFTMEALHC PRN PO DYSPEPSIA; Start 08/19/18 at 15:15 Magnesium Hydroxide (Milk Of Magnesia) 2,400 mg PRN QHS PRN PO CONSTIPATION; Start 08/19/18 at 15:15 Nicotine (Nicoderm Cq 14mg) 1 patch DAILY TD Last administered on 08/22/18at 07: 57; Start 08/20/18 at 09:00 Acetaminophen (Tylenol) 500 mg PRN Q6HRS PRN PO PAIN; Start 08/19/18 at 16:00 Vitamin D (Vitamin D3) 1,000 unit DAILY PO Last administered on 08/22/18at 07:58 ; Start 08/20/18 at 09:00 Cyanocobalamin (Vitamin B-12) 1,000 mcg DAILY PO Last administered on 08/22/18 07:58; Start 08/20/18 at 09:00 Ferrous Sulfate (Feosol) 325 mg BID PO Last administered on 08/22/18 20:19; Start 08/19/18 at 21:00 Tamsulosin HCl (Flomax) 0.4 mg HS PO Last administered on 08/22/18 20:19; Start 08/19/18 at 21:00 Aspirin (Aspirin Enteric Coated) 81 mg DAILY PO Last administered on 08/22/18 07:58; Start 08/20/18 at 09:00 Atorvastatin Calcium (Lipitor) 10 mg QHS PO Last administered on 08/22/18 20:19 ; Start 08/19/18 at 21:00 Bupropion HCl (Wellbutrin Xl) 150 mg DAILY PO Last administered on 08/22/18 07: 58; Start 08/20/18 at 09:00 Gabapentin (Neurontin) 300 mg BID PO Last administered on 08/22/18 20:19; Start 08/19/18 at 21:00 Levothyroxine Sodium (Synthroid) 150 mcg DAILY06 PO Last administered on 05:58; Start 08/20/18 at 06:00 Lisinopril (Prinivil) 5 mg BID PO Last administered on 08/22/18 20:19; Start at 21:00 Loperamide HCl (Imodium) 2 mg PRN Q4HRS PRN PO DIARRHEA; Start 08/19/18 at 16: 15 Cetirizine HCl (ZyrTEC) 10 mg DAILY PO Last administered on 08/22/18 07:58; Start 08/20/18 at 09:00 Melatonin 6 mg QHS PO Last administered on 08/22/18 20:18; Start 08/19/18 at 21 :00 Potassium Chloride (Klor-Con) 20 meq DAILY PO Last administered on 08/22/18 07: 58; Start 08/20/18 at 09:00 Famotidine (Pepcid) 20 mg QHS PO Last administered on 08/22/18 20:18; Start at 21:00 Simethicone (Gas-X) 120 mg PRN Q6HRS PRN PO GAS / BLOATING; Start 08/19/18 at 16:15 Thiamine HCl (Vitamin B-1) 100 mg DAILY PO Last administered on 08/22/18at 07:58 ; Start 08/20/18 at 09:00 Insulin Glargine (Lantus) 14 units QHS SQ Last administered on 08/19/18at 20:27 ; Start 08/19/18 at 21:00; Stop 08/20/18 at 12:53; Status DC Non-Formulary Medication (Insulin Lispro (Humalog)) 5 unit TIDAC SQ ; Start at 07:30; Stop 08/20/18 at 07:30; Status DC Insulin Human Lispro (HumaLOG) 5 units TIDAC SQ Last administered on 08/20/18at 12:13; Start 08/19/18 at 17:30; Stop 08/20/18 at 12:53; Status DC Insulin Glargine (Lantus) 14 units BID SQ Last administered on 08/22/18at 20:20; Start 08/20/18 at 21:00 Insulin Human Lispro (HumaLOG) 8 units TIDAC SQ Last administered on 08/22/18at 17:31; Start 08/20/18 at 16:30 Quetiapine Fumarate (SEROquel) 50 mg QHS PO Last administered on 08/22/18at 20:18 ; Start 08/21/18 at 21:00 Active Scripts Active Reported Humalog (Insulin Lispro) 100 Unit/1 Ml Vial 5 Unit SQ TIDAC Lantus Solostar (Insulin Glargine,Hum.rec.anlog) 100 Unit/1 Ml Insuln.pen 14 Unit SQ QHS Gas Relief (Simethicone) 125 Mg Tab.chew 125 Mg PO Q6HRS PRN Tylenol (Acetaminophen) 325 Mg Tablet 500 Mg PO Q6HRS PRN Aspir-Low (Aspirin) 81 Mg Tablet.dr 1 Tab PO DAILY Lisinopril 5 Mg Tablet 1 Tab PO BID Ferrous Sulfate 325 Mg Tablet 1 Tab PO BID Vitamin B-1 (Thiamine Hcl) 100 Mg Tablet 100 Mg PO DAILY Potassium Chloride 10 Meq Tablet.er 20 Meq PO DAILY Loratadine 10 Mg Tablet 1 Tab PO DAILY Vitamin B-12 (Cyanocobalamin (Vitamin B-12)) 1,000 Mcg Tablet 1 Tab PO DAILY Vitamin D3 (Cholecalciferol (Vitamin D3)) 1,000 Unit Tablet 1 Tab PO DAILY Loperamide (Loperamide Hcl) 2 Mg Capsule 2 Mg PO Q4HRS PRN Ranitidine Hcl 150 Mg Tablet 1 Tab PO HS Gabapentin 300 Mg Capsule 1 Cap PO BID Tamsulosin Hcl 0.4 Mg Cap.er.24h 1 Cap PO HS Melatonin 3 Mg Tablet 5 Mg PO HS Synthroid (Levothyroxine Sodium) 150 Mcg Tablet 1 Tab PO DAILY06 Bupropion Hcl Sr (Bupropion Hcl) 150 Mg Tablet.er 1 Tab PO DAILY Atorvastatin Calcium 10 Mg Tablet 1 Tab PO HS I have reviewed the current psychotropics carefully including drug interactions. Risk benefit ratio favors no change other than as noted in my dictated progress note. Diagnosis: Problems: (1) Hypoglycemia (2) Behavioral problem (3) Bipolar 1 disorder, mixed, moderate (4) Impulse control disorder (5) Major depressive disorder, recurrent episode (6) Personality disorder in adult JEB WOODS MD Aug 22, 2018 22:50
[2018-08-23] MEDS: LEVOTHYROXINE 150 MCG TABLET PO SCH (05:14)
[2018-08-23 06:06] VITALS: BP 104/65
[2018-08-23] MEDS: LISINOPRIL 5 MG TABLET. PO SCH ×2 (07:29→21:53)
[2018-08-23] MEDS: THIAMINE 100 MG TABLET. PO SCH (07:30)
[2018-08-23] MEDS: CYANOCOBALAMIN (VITAMIN B-12) 1,000 MCG TABLET. PO SCH (07:30)
[2018-08-23] MEDS: buPROPion XL 150 MG TAB.ER.24H PO SCH (07:30)
[2018-08-23] MEDS: CHOLECALCIFEROL (VITAMIN D3) 1,000 UNIT TABLET PO SCH (07:30)
[2018-08-23] MEDS: FERROUS SULFATE 325 MG TABLET. PO SCH ×2 (07:30→21:26)
[2018-08-23] MEDS: ASPIRIN ENTERIC COATED 81 MG TABLET.DR. PO SCH (07:30)
[2018-08-23] MEDS: POTASSIUM CHLORIDE 20 MEQ TABLET.ER. PO SCH (07:30)
[2018-08-23] MEDS: NICOTINE 14MG PATCH. TD SCH (07:30)
[2018-08-23] MEDS: GABAPENTIN 300 MG CAPSULE. PO SCH ×2 (07:30→21:26)
[2018-08-23] MEDS: INSULIN LISPRO 300 UNITS/3 ML INSULN.PEN. SQ SCH ×3 (07:30→16:30)
[2018-08-23] MEDS: CETIRIZINE HCL 10 MG TABLET PO SCH (07:33)
[2018-08-23] MEDS: INSULIN GLARGINE 300 UNITS/3 ML INSULN.PEN. SQ SCH ×2 (09:00→21:28)
[2018-08-23 15:50] VITALS: BP 129/81
[2018-08-23] MEDS: TAMSULOSIN 0.4 MG CAP.ER.24H. PO SCH (21:24)
[2018-08-23] MEDS: MELATONIN 3 MG TABLET PO SCH (21:25)
[2018-08-23] MEDS: QUEtiapine 50 MG TABLET. PO SCH (21:26)
[2018-08-23] MEDS: ATORVASTATIN CALCIUM 10 MG TABLET. PO SCH (21:26)
[2018-08-23] MEDS: FAMOTIDINE 20 MG TABLET PO SCH (21:26)
--- NOTE | 2018-08-23 22:18 | PDOC ---
Exam Note: Jaime Note: Please also refer to the separate dictated note~for this date of service dictated separately.~Patient seen individually. Discussed the patient with Nursing staff reviewed the chart.~Reviewed interim history and current functioning. Reviewed vital signs,~Labs/ Radiology~and current medications noted below. Continue current treatment with the changes noted in the dictated addendum note Assessment: Vital Signs: Vital Signs Date Time Temp Pulse Resp B/P (MAP) Pulse Ox O2 Delivery O2 Flow Rate FiO2 08/23/18 21:53 65 156/84 08/23/18 15:50 98.0 18 97 Room Air I&O Intake and Output 08/23/18 07:01 Intake Total 960 ml Balance 960 ml Intake Oral 960 ml Labs: Laboratory Tests Test 08/23/18 07:07 08/23/18 11:43 08/23/18 16:26 08/23/18 19:22 Glucose (Fingerstick) 313 mg/dL (70-99) H 144 mg/dL (70-99) H 248 mg/dL (70-99) H 158 mg/dL (70-99) H Current Medications: Meds: Current Medications Acetaminophen (Tylenol) 650 mg PRN Q6HRS PRN PO PAIN / TEMP; Start 08/19/18 at 15:15; Status Cancel Multi-Ingredient Ointment (Analgesic [place]) 1 del PRN QID PRN TP MUSCLE PAIN; Start 08/19/18 at 15:15 Al Hydroxide/Mg Hydroxide (Mylanta Plus Xs) 15 ml PRN AFTMEALHC PRN PO DYSPEPSIA; Start 08/19/18 at 15:15 Magnesium Hydroxide (Milk Of Magnesia) 2,400 mg PRN QHS PRN PO CONSTIPATION; Start 08/19/18 at 15:15 Nicotine (Nicoderm Cq 14mg) 1 patch DAILY TD Last administered on 08/23/18at 07: 30; Start 08/20/18 at 09:00 Acetaminophen (Tylenol) 500 mg PRN Q6HRS PRN PO PAIN; Start 08/19/18 at 16:00 Vitamin D (Vitamin D3) 1,000 unit DAILY PO Last administered on 08/23/18at 07:30 ; Start 08/20/18 at 09:00 Cyanocobalamin (Vitamin B-12) 1,000 mcg DAILY PO Last administered on 08/23/18 07:30; Start 08/20/18 at 09:00 Ferrous Sulfate (Feosol) 325 mg BID PO Last administered on 08/23/18 21:26; Start 08/19/18 at 21:00 Tamsulosin HCl (Flomax) 0.4 mg HS PO Last administered on 08/23/18 21:24; Start 08/19/18 at 21:00 Aspirin (Aspirin Enteric Coated) 81 mg DAILY PO Last administered on 08/23/18 07:30; Start 08/20/18 at 09:00 Atorvastatin Calcium (Lipitor) 10 mg QHS PO Last administered on 08/23/18 21:26 ; Start 08/19/18 at 21:00 Bupropion HCl (Wellbutrin Xl) 150 mg DAILY PO Last administered on 08/23/18 07: 30; Start 08/20/18 at 09:00 Gabapentin (Neurontin) 300 mg BID PO Last administered on 08/23/18 21:26; Start 08/19/18 at 21:00 Levothyroxine Sodium (Synthroid) 150 mcg DAILY06 PO Last administered on 05:14; Start 08/20/18 at 06:00 Lisinopril (Prinivil) 5 mg BID PO Last administered on 08/23/18 21:53; Start at 21:00 Loperamide HCl (Imodium) 2 mg PRN Q4HRS PRN PO DIARRHEA; Start 08/19/18 at 16: 15 Cetirizine HCl (ZyrTEC) 10 mg DAILY PO Last administered on 08/23/18 07:33; Start 08/20/18 at 09:00 Melatonin 6 mg QHS PO Last administered on 08/23/18 21:25; Start 08/19/18 at 21 :00 Potassium Chloride (Klor-Con) 20 meq DAILY PO Last administered on 08/23/18 07: 30; Start 08/20/18 at 09:00 Famotidine (Pepcid) 20 mg QHS PO Last administered on 08/23/18 21:26; Start at 21:00 Simethicone (Gas-X) 120 mg PRN Q6HRS PRN PO GAS / BLOATING; Start 08/19/18 at 16:15 Thiamine HCl (Vitamin B-1) 100 mg DAILY PO Last administered on 08/23/18at 07:30 ; Start 08/20/18 at 09:00 Insulin Glargine (Lantus) 14 units QHS SQ Last administered on 08/19/18at 20:27 ; Start 08/19/18 at 21:00; Stop 08/20/18 at 12:53; Status DC Non-Formulary Medication (Insulin Lispro (Humalog)) 5 unit TIDAC SQ ; Start at 07:30; Stop 08/20/18 at 07:30; Status DC Insulin Human Lispro (HumaLOG) 5 units TIDAC SQ Last administered on 08/20/18at 12:13; Start 08/19/18 at 17:30; Stop 08/20/18 at 12:53; Status DC Insulin Glargine (Lantus) 14 units BID SQ Last administered on 08/23/18at 21:28; Start 08/20/18 at 21:00 Insulin Human Lispro (HumaLOG) 8 units TIDAC SQ Last administered on 08/23/18at 16:30; Start 08/20/18 at 16:30 Quetiapine Fumarate (SEROquel) 50 mg QHS PO Last administered on 08/23/18at 21:26 ; Start 08/21/18 at 21:00 Active Scripts Active Reported Humalog (Insulin Lispro) 100 Unit/1 Ml Vial 5 Unit SQ TIDAC Lantus Solostar (Insulin Glargine,Hum.rec.anlog) 100 Unit/1 Ml Insuln.pen 14 Unit SQ QHS Gas Relief (Simethicone) 125 Mg Tab.chew 125 Mg PO Q6HRS PRN Tylenol (Acetaminophen) 325 Mg Tablet 500 Mg PO Q6HRS PRN Aspir-Low (Aspirin) 81 Mg Tablet.dr 1 Tab PO DAILY Lisinopril 5 Mg Tablet 1 Tab PO BID Ferrous Sulfate 325 Mg Tablet 1 Tab PO BID Vitamin B-1 (Thiamine Hcl) 100 Mg Tablet 100 Mg PO DAILY Potassium Chloride 10 Meq Tablet.er 20 Meq PO DAILY Loratadine 10 Mg Tablet 1 Tab PO DAILY Vitamin B-12 (Cyanocobalamin (Vitamin B-12)) 1,000 Mcg Tablet 1 Tab PO DAILY Vitamin D3 (Cholecalciferol (Vitamin D3)) 1,000 Unit Tablet 1 Tab PO DAILY Loperamide (Loperamide Hcl) 2 Mg Capsule 2 Mg PO Q4HRS PRN Ranitidine Hcl 150 Mg Tablet 1 Tab PO HS Gabapentin 300 Mg Capsule 1 Cap PO BID Tamsulosin Hcl 0.4 Mg Cap.er.24h 1 Cap PO HS Melatonin 3 Mg Tablet 5 Mg PO HS Synthroid (Levothyroxine Sodium) 150 Mcg Tablet 1 Tab PO DAILY06 Bupropion Hcl Sr (Bupropion Hcl) 150 Mg Tablet.er 1 Tab PO DAILY Atorvastatin Calcium 10 Mg Tablet 1 Tab PO HS I have reviewed the current psychotropics carefully including drug interactions. Risk benefit ratio favors no change other than as noted in my dictated progress note. Diagnosis: Problems: (1) Hypoglycemia (2) Behavioral problem (3) Bipolar 1 disorder, mixed, moderate (4) Impulse control disorder (5) Major depressive disorder, recurrent episode (6) Personality disorder in adult JEB WOODS MD Aug 23, 2018 22:18
[2018-08-24] MEDS: LEVOTHYROXINE 150 MCG TABLET PO SCH (04:43)
[2018-08-24 05:57] VITALS: BP 105/64
[2018-08-24] MEDS: ASPIRIN ENTERIC COATED 81 MG TABLET.DR. PO SCH (07:44)
[2018-08-24] MEDS: CETIRIZINE HCL 10 MG TABLET PO SCH (07:44)
[2018-08-24] MEDS: CHOLECALCIFEROL (VITAMIN D3) 1,000 UNIT TABLET PO SCH (07:44)
[2018-08-24] MEDS: POTASSIUM CHLORIDE 20 MEQ TABLET.ER. PO SCH (07:44)
[2018-08-24] MEDS: FERROUS SULFATE 325 MG TABLET. PO SCH ×2 (07:44→19:56)
[2018-08-24] MEDS: CYANOCOBALAMIN (VITAMIN B-12) 1,000 MCG TABLET. PO SCH (07:44)
[2018-08-24] MEDS: LISINOPRIL 5 MG TABLET. PO SCH ×2 (07:44→20:10)
[2018-08-24] MEDS: buPROPion XL 150 MG TAB.ER.24H PO SCH (07:44)
[2018-08-24] MEDS: THIAMINE 100 MG TABLET. PO SCH (07:45)
[2018-08-24] MEDS: NICOTINE 14MG PATCH. TD SCH (07:48)
[2018-08-24] MEDS: GABAPENTIN 300 MG CAPSULE. PO SCH ×2 (07:48→19:56)
[2018-08-24] MEDS: INSULIN LISPRO 300 UNITS/3 ML INSULN.PEN. SQ SCH ×4 (08:55→16:48)
[2018-08-24] MEDS: INSULIN GLARGINE 300 UNITS/3 ML INSULN.PEN. SQ SCH ×2 (08:56→20:12)
[2018-08-24 15:54] VITALS: BP 144/92
[2018-08-24] MEDS ORDERED: DEXTROSE ORAL GEL 15 GM TUBE. PO PRN (16:00)
[2018-08-24] MEDS ORDERED: DEXTROSE 50% 25 GM / 50ML DISP.SYRIN. IV PRN (16:00)
[2018-08-24] MEDS: ATORVASTATIN CALCIUM 10 MG TABLET. PO SCH (19:56)
[2018-08-24] MEDS: TAMSULOSIN 0.4 MG CAP.ER.24H. PO SCH (19:56)
[2018-08-24] MEDS: MELATONIN 3 MG TABLET PO SCH (19:57)
[2018-08-24] MEDS: QUEtiapine 50 MG TABLET. PO SCH (19:57)
[2018-08-24] MEDS: FAMOTIDINE 20 MG TABLET PO SCH (19:57)
--- NOTE | 2018-08-24 22:20 | PDOC ---
Exam Note: Jaime Note: Please also refer to the separate dictated note~for this date of service dictated separately.~Patient seen individually. Discussed the patient with Nursing staff reviewed the chart.~Reviewed interim history and current functioning. Reviewed vital signs,~Labs/ Radiology~and current medications noted below. Continue current treatment with the changes noted in the dictated addendum note Assessment: Vital Signs: Vital Signs Date Time Temp Pulse Resp B/P (MAP) Pulse Ox O2 Delivery O2 Flow Rate FiO2 08/24/18 20:10 65 138/82 08/24/18 15:54 98.4 18 96 Room Air I&O Intake and Output 08/24/18 07:01 Intake Total 1080 ml Balance 1080 ml Intake Oral 1080 ml Labs: Laboratory Tests Test 08/24/18 07:18 08/24/18 11:35 08/24/18 16:27 08/24/18 19:26 Glucose (Fingerstick) 247 mg/dL (70-99) H 269 mg/dL (70-99) H 94 mg/dL (70-99) 125 mg/dL (70-99) H Current Medications: Meds: Current Medications Acetaminophen (Tylenol) 650 mg PRN Q6HRS PRN PO PAIN / TEMP; Start 08/19/18 at 15:15; Status Cancel Multi-Ingredient Ointment (Analgesic [place]) 1 del PRN QID PRN TP MUSCLE PAIN; Start 08/19/18 at 15:15 Al Hydroxide/Mg Hydroxide (Mylanta Plus Xs) 15 ml PRN AFTMEALHC PRN PO DYSPEPSIA; Start 08/19/18 at 15:15 Magnesium Hydroxide (Milk Of Magnesia) 2,400 mg PRN QHS PRN PO CONSTIPATION; Start 08/19/18 at 15:15 Nicotine (Nicoderm Cq 14mg) 1 patch DAILY TD Last administered on 08/24/18at 07: 48; Start 08/20/18 at 09:00 Acetaminophen (Tylenol) 500 mg PRN Q6HRS PRN PO PAIN; Start 08/19/18 at 16:00 Vitamin D (Vitamin D3) 1,000 unit DAILY PO Last administered on 08/24/18at 07:44 ; Start 08/20/18 at 09:00 Cyanocobalamin (Vitamin B-12) 1,000 mcg DAILY PO Last administered on 2/3/19at 07:44; Start 08/20/18 at 09:00 Ferrous Sulfate (Feosol) 325 mg BID PO Last administered on 08/24/18 19:56; Start 08/19/18 at 21:00 Tamsulosin HCl (Flomax) 0.4 mg HS PO Last administered on 08/24/18 19:56; Start 08/19/18 at 21:00 Aspirin (Aspirin Enteric Coated) 81 mg DAILY PO Last administered on 08/24/18 07:44; Start 08/20/18 at 09:00 Atorvastatin Calcium (Lipitor) 10 mg QHS PO Last administered on 08/24/18 19:56 ; Start 08/19/18 at 21:00 Bupropion HCl (Wellbutrin Xl) 150 mg DAILY PO Last administered on 08/24/18 07: 44; Start 08/20/18 at 09:00 Gabapentin (Neurontin) 300 mg BID PO Last administered on 08/24/18 19:56; Start 08/19/18 at 21:00 Levothyroxine Sodium (Synthroid) 150 mcg DAILY06 PO Last administered on 04:43; Start 08/20/18 at 06:00 Lisinopril (Prinivil) 5 mg BID PO Last administered on 08/24/18 20:10; Start at 21:00 Loperamide HCl (Imodium) 2 mg PRN Q4HRS PRN PO DIARRHEA; Start 08/19/18 at 16: 15 Cetirizine HCl (ZyrTEC) 10 mg DAILY PO Last administered on 08/24/18 07:44; Start 08/20/18 at 09:00 Melatonin 6 mg QHS PO Last administered on 08/24/18 19:57; Start 08/19/18 at 21 :00 Potassium Chloride (Klor-Con) 20 meq DAILY PO Last administered on 08/24/18 07: 44; Start 08/20/18 at 09:00 Famotidine (Pepcid) 20 mg QHS PO Last administered on 08/24/18 19:57; Start at 21:00 Simethicone (Gas-X) 120 mg PRN Q6HRS PRN PO GAS / BLOATING; Start 08/19/18 at 16:15 Thiamine HCl (Vitamin B-1) 100 mg DAILY PO Last administered on 08/24/18at 07:45 ; Start 08/20/18 at 09:00 Insulin Glargine (Lantus) 14 units QHS SQ Last administered on 08/19/18at 20:27 ; Start 08/19/18 at 21:00; Stop 08/20/18 at 12:53; Status DC Non-Formulary Medication (Insulin Lispro (Humalog)) 5 unit TIDAC SQ ; Start at 07:30; Stop 08/20/18 at 07:30; Status DC Insulin Human Lispro (HumaLOG) 5 units TIDAC SQ Last administered on 08/20/18at 12:13; Start 08/19/18 at 17:30; Stop 08/20/18 at 12:53; Status DC Insulin Glargine (Lantus) 14 units BID SQ Last administered on 08/24/18at 20:12; Start 08/20/18 at 21:00 Insulin Human Lispro (HumaLOG) 8 units TIDAC SQ Last administered on 08/24/18at 16:30; Start 08/20/18 at 16:30 Quetiapine Fumarate (SEROquel) 50 mg QHS PO Last administered on 08/24/18at 19:57 ; Start 08/21/18 at 21:00 Insulin Human Lispro (HumaLOG) 0-9 UNITS TIDWMEALS SQ ; Start 08/24/18 at 17:00 Dextrose 12.5 gm PRN Q15MIN PRN IV SEE COMMENTS; Start 08/24/18 at 16:00 Glucose (Insta-Glucose) 15 gm PRN Q15MIN PRN PO LOW BLOOD SUGAR; Start 08/24/18 at 16:00 Active Scripts Active Reported Humalog (Insulin Lispro) 100 Unit/1 Ml Vial 5 Unit SQ TIDAC Lantus Solostar (Insulin Glargine,Hum.rec.anlog) 100 Unit/1 Ml Insuln.pen 14 Unit SQ QHS Gas Relief (Simethicone) 125 Mg Tab.chew 125 Mg PO Q6HRS PRN Tylenol (Acetaminophen) 325 Mg Tablet 500 Mg PO Q6HRS PRN Aspir-Low (Aspirin) 81 Mg Tablet.dr 1 Tab PO DAILY Lisinopril 5 Mg Tablet 1 Tab PO BID Ferrous Sulfate 325 Mg Tablet 1 Tab PO BID Vitamin B-1 (Thiamine Hcl) 100 Mg Tablet 100 Mg PO DAILY Potassium Chloride 10 Meq Tablet.er 20 Meq PO DAILY Loratadine 10 Mg Tablet 1 Tab PO DAILY Vitamin B-12 (Cyanocobalamin (Vitamin B-12)) 1,000 Mcg Tablet 1 Tab PO DAILY Vitamin D3 (Cholecalciferol (Vitamin D3)) 1,000 Unit Tablet 1 Tab PO DAILY Loperamide (Loperamide Hcl) 2 Mg Capsule 2 Mg PO Q4HRS PRN Ranitidine Hcl 150 Mg Tablet 1 Tab PO HS Gabapentin 300 Mg Capsule 1 Cap PO BID Tamsulosin Hcl 0.4 Mg Cap.er.24h 1 Cap PO HS Melatonin 3 Mg Tablet 5 Mg PO HS Synthroid (Levothyroxine Sodium) 150 Mcg Tablet 1 Tab PO DAILY06 Bupropion Hcl Sr (Bupropion Hcl) 150 Mg Tablet.er 1 Tab PO DAILY Atorvastatin Calcium 10 Mg Tablet 1 Tab PO HS I have reviewed the current psychotropics carefully including drug interactions. Risk benefit ratio favors no change other than as noted in my dictated progress note. Diagnosis: Problems: (1) Hypoglycemia (2) Behavioral problem (3) Bipolar 1 disorder, mixed, moderate (4) Impulse control disorder (5) Major depressive disorder, recurrent episode (6) Personality disorder in adult JEB WOODS MD Aug 24, 2018 22:20
--- NOTE | 2018-08-25 02:16 | PN ---
DATE: 08/22/2018 PSYCHIATRIC PROGRESS NOTE This late entry, 08/22/2018, covers elements not covered in my initial note. SUBJECTIVE: I met with the patient in the evening. The patient slept 9-1/4 hours previous night. He is compliant with medications. Somewhat circumstantial in his speech. REVIEW OF SYSTEMS: No CV, , pulmonary, eye, ENT system symptoms on review. MENTAL STATUS EXAM: Reasonably oriented. Speech is rapid at times. Abstraction fair, computation impaired, language function intact. Attention span short. He is slightly paranoid, but dismissive of any problems prompting admission. LABORATORY DATA: Reviewed. IMPRESSION: Major depressive disorder. Probable bipolar 1 disorder, mixed; cognitive disorder, unspecified; impulse control disorder. PLAN: Continue psychotropics from initial note. Awaiting records from [facility]. May need to increase Seroquel further. Continue Wellbutrin, Neurontin, and Seroquel 50 mg at bedtime. MAN Nathan WOODS MD DR: CEM/augusto JOB#: [id number] / [id number]
[2018-08-25] MEDS: LEVOTHYROXINE 150 MCG TABLET PO SCH (05:11)
[2018-08-25 06:04] VITALS: BP 113/62
[2018-08-25] MEDS: INSULIN LISPRO 300 UNITS/3 ML INSULN.PEN. SQ SCH ×6 (08:00→17:00)
[2018-08-25] MEDS: THIAMINE 100 MG TABLET. PO SCH (09:07)
[2018-08-25] MEDS: ASPIRIN ENTERIC COATED 81 MG TABLET.DR. PO SCH (09:07)
[2018-08-25] MEDS: POTASSIUM CHLORIDE 20 MEQ TABLET.ER. PO SCH (09:08)
[2018-08-25] MEDS: CHOLECALCIFEROL (VITAMIN D3) 1,000 UNIT TABLET PO SCH (09:08)
[2018-08-25] MEDS: LISINOPRIL 5 MG TABLET. PO SCH ×2 (09:08→19:55)
[2018-08-25] MEDS: FERROUS SULFATE 325 MG TABLET. PO SCH ×2 (09:08→19:56)
[2018-08-25] MEDS: CETIRIZINE HCL 10 MG TABLET PO SCH (09:08)
[2018-08-25] MEDS: NICOTINE 14MG PATCH. TD SCH (09:09)
[2018-08-25] MEDS: buPROPion XL 150 MG TAB.ER.24H PO SCH (09:09)
[2018-08-25] MEDS: GABAPENTIN 300 MG CAPSULE. PO SCH ×2 (09:13→19:57)
[2018-08-25] MEDS: INSULIN GLARGINE 300 UNITS/3 ML INSULN.PEN. SQ SCH ×2 (09:16→21:50)
[2018-08-25] MEDS: CYANOCOBALAMIN (VITAMIN B-12) 1,000 MCG TABLET. PO SCH (09:17)
[2018-08-25 16:08] VITALS: BP 151/75
--- NOTE | 2018-08-25 19:49 | PN ---
DATE: 08/23/2018 This late entry for 08/23/2018 covers elements in my initial note. SUBJECTIVE: I met with the patient in the evening at length. The patient slept 8 hours previous night, compliant with medications and cares. Overall, the patient remains somewhat paranoid, minimizes most of the problems prompting admission. We are still awaiting records from [facility]. REVIEW OF SYSTEMS: No CV, , pulmonary, eye, ENT system symptoms on review. MENTAL STATUS EXAM: Oriented to himself and situation. Speech is coherent, somewhat rapid at times. Abstraction fair, computation impaired, language function intact, attention span short. Mood and affect remain somewhat anxious, somewhat labile. LABORATORY DATA: Reviewed. IMPRESSION: Unchanged from initial note. PLAN: No change from initial note. MAN Nathan WOODS MD DR: CEM/augusto JOB#: [id number] / [id number]
[2018-08-25] MEDS: TAMSULOSIN 0.4 MG CAP.ER.24H. PO SCH (19:55)
[2018-08-25] MEDS: ATORVASTATIN CALCIUM 10 MG TABLET. PO SCH (19:55)
[2018-08-25] MEDS: QUEtiapine 50 MG TABLET. PO SCH (19:55)
[2018-08-25] MEDS: FAMOTIDINE 20 MG TABLET PO SCH (19:55)
[2018-08-25] MEDS: MELATONIN 3 MG TABLET PO SCH (19:56)
--- NOTE | 2018-08-25 22:18 | PN ---
DATE: 08/24/2018 This is a late entry for 08/24/2018 covers elements not covered in my initial note. SUBJECTIVE: I met with the patient in the evening. The patient slept 5-3/4 hours previous evening. He seems to get upset when his blood sugar is checked and we will do a dietary consult. He is compliant with medications. REVIEW OF SYSTEMS: No CV, , pulmonary, eye system symptoms on review. MENTAL STATUS EXAM: Oriented reasonably. Speech is coherent, abstraction fair, computation impaired. He is somewhat circumstantial in his thought processes. No active suicidal or homicidal ideation. He has not been sexually inappropriate. LABORATORY DATA: Reviewed. IMPRESSION: Unchanged from initial note. PLAN: No change from initial note. MAN Nathan WOODS MD DR: CEM/augusto JOB#: [id number] / [id number]
--- NOTE | 2018-08-25 22:27 | PDOC ---
Exam Note: Jaime Note: Please also refer to the separate dictated note~for this date of service dictated separately.~Patient seen individually. Discussed the patient with Nursing staff reviewed the chart.~Reviewed interim history and current functioning. Reviewed vital signs,~Labs/ Radiology~and current medications noted below. Continue current treatment with the changes noted in the dictated addendum note Assessment: Vital Signs: Vital Signs Date Time Temp Pulse Resp B/P (MAP) Pulse Ox O2 Delivery O2 Flow Rate FiO2 08/25/18 19:55 60 151/75 08/25/18 16:08 99.7 17 96 08/24/18 15:54 Room Air I&O Intake and Output 08/25/18 07:01 Intake Total 1440 ml Balance 1440 ml Intake Oral 1440 ml Labs: Laboratory Tests Test 08/25/18 07:17 08/25/18 11:33 08/25/18 17:12 08/25/18 20:31 Glucose (Fingerstick) 135 mg/dL (70-99) H 142 mg/dL (70-99) H 66 mg/dL (70-99) L 394 mg/dL (70-99) H Current Medications: Meds: Current Medications Acetaminophen (Tylenol) 650 mg PRN Q6HRS PRN PO PAIN / TEMP; Start 08/19/18 at 15:15; Status Cancel Multi-Ingredient Ointment (Analgesic [place]) 1 del PRN QID PRN TP MUSCLE PAIN; Start 08/19/18 at 15:15 Al Hydroxide/Mg Hydroxide (Mylanta Plus Xs) 15 ml PRN AFTMEALHC PRN PO DYSPEPSIA; Start 08/19/18 at 15:15 Magnesium Hydroxide (Milk Of Magnesia) 2,400 mg PRN QHS PRN PO CONSTIPATION; Start 08/19/18 at 15:15 Nicotine (Nicoderm Cq 14mg) 1 patch DAILY TD Last administered on 08/25/18at 09: 09; Start 08/20/18 at 09:00 Acetaminophen (Tylenol) 500 mg PRN Q6HRS PRN PO PAIN; Start 08/19/18 at 16:00 Vitamin D (Vitamin D3) 1,000 unit DAILY PO Last administered on 08/25/18at 09:08 ; Start 08/20/18 at 09:00 Cyanocobalamin (Vitamin B-12) 1,000 mcg DAILY PO Last administered on 08/25/18 09:17; Start 08/20/18 at 09:00 Ferrous Sulfate (Feosol) 325 mg BID PO Last administered on 08/25/18 19:56; Start 08/19/18 at 21:00 Tamsulosin HCl (Flomax) 0.4 mg HS PO Last administered on 08/25/18 19:55; Start 08/19/18 at 21:00 Aspirin (Aspirin Enteric Coated) 81 mg DAILY PO Last administered on 08/25/18 09:07; Start 08/20/18 at 09:00 Atorvastatin Calcium (Lipitor) 10 mg QHS PO Last administered on 08/25/18 19:55 ; Start 08/19/18 at 21:00 Bupropion HCl (Wellbutrin Xl) 150 mg DAILY PO Last administered on 08/25/18 09: 09; Start 08/20/18 at 09:00 Gabapentin (Neurontin) 300 mg BID PO Last administered on 08/25/18 19:57; Start 08/19/18 at 21:00 Levothyroxine Sodium (Synthroid) 150 mcg DAILY06 PO Last administered on 05:11; Start 08/20/18 at 06:00 Lisinopril (Prinivil) 5 mg BID PO Last administered on 08/25/18 19:55; Start at 21:00 Loperamide HCl (Imodium) 2 mg PRN Q4HRS PRN PO DIARRHEA; Start 08/19/18 at 16: 15 Cetirizine HCl (ZyrTEC) 10 mg DAILY PO Last administered on 08/25/18 09:08; Start 08/20/18 at 09:00 Melatonin 6 mg QHS PO Last administered on 08/25/18 19:56; Start 08/19/18 at 21 :00 Potassium Chloride (Klor-Con) 20 meq DAILY PO Last administered on 08/25/18 09: 08; Start 08/20/18 at 09:00 Famotidine (Pepcid) 20 mg QHS PO Last administered on 08/25/18 19:55; Start at 21:00 Simethicone (Gas-X) 120 mg PRN Q6HRS PRN PO GAS / BLOATING; Start 08/19/18 at 16:15 Thiamine HCl (Vitamin B-1) 100 mg DAILY PO Last administered on 08/25/18at 09:07 ; Start 08/20/18 at 09:00 Insulin Glargine (Lantus) 14 units QHS SQ Last administered on 08/19/18at 20:27 ; Start 08/19/18 at 21:00; Stop 08/20/18 at 12:53; Status DC Non-Formulary Medication (Insulin Lispro (Humalog)) 5 unit TIDAC SQ ; Start at 07:30; Stop 08/20/18 at 07:30; Status DC Insulin Human Lispro (HumaLOG) 5 units TIDAC SQ Last administered on 08/20/18at 12:13; Start 08/19/18 at 17:30; Stop 08/20/18 at 12:53; Status DC Insulin Glargine (Lantus) 14 units BID SQ Last administered on 08/25/18at 21:50; Start 08/20/18 at 21:00 Insulin Human Lispro (HumaLOG) 8 units TIDAC SQ Last administered on 08/25/18at 12:59; Start 08/20/18 at 16:30 Quetiapine Fumarate (SEROquel) 50 mg QHS PO Last administered on 08/25/18at 19:55 ; Start 08/21/18 at 21:00 Insulin Human Lispro (HumaLOG) 0-9 UNITS TIDWMEALS SQ ; Start 08/24/18 at 17:00 Dextrose 12.5 gm PRN Q15MIN PRN IV SEE COMMENTS; Start 08/24/18 at 16:00 Glucose (Insta-Glucose) 15 gm PRN Q15MIN PRN PO LOW BLOOD SUGAR; Start 08/24/18 at 16:00 Active Scripts Active Reported Humalog (Insulin Lispro) 100 Unit/1 Ml Vial 5 Unit SQ TIDAC Lantus Solostar (Insulin Glargine,Hum.rec.anlog) 100 Unit/1 Ml Insuln.pen 14 Unit SQ QHS Gas Relief (Simethicone) 125 Mg Tab.chew 125 Mg PO Q6HRS PRN Tylenol (Acetaminophen) 325 Mg Tablet 500 Mg PO Q6HRS PRN Aspir-Low (Aspirin) 81 Mg Tablet.dr 1 Tab PO DAILY Lisinopril 5 Mg Tablet 1 Tab PO BID Ferrous Sulfate 325 Mg Tablet 1 Tab PO BID Vitamin B-1 (Thiamine Hcl) 100 Mg Tablet 100 Mg PO DAILY Potassium Chloride 10 Meq Tablet.er 20 Meq PO DAILY Loratadine 10 Mg Tablet 1 Tab PO DAILY Vitamin B-12 (Cyanocobalamin (Vitamin B-12)) 1,000 Mcg Tablet 1 Tab PO DAILY Vitamin D3 (Cholecalciferol (Vitamin D3)) 1,000 Unit Tablet 1 Tab PO DAILY Loperamide (Loperamide Hcl) 2 Mg Capsule 2 Mg PO Q4HRS PRN Ranitidine Hcl 150 Mg Tablet 1 Tab PO HS Gabapentin 300 Mg Capsule 1 Cap PO BID Tamsulosin Hcl 0.4 Mg Cap.er.24h 1 Cap PO HS Melatonin 3 Mg Tablet 5 Mg PO HS Synthroid (Levothyroxine Sodium) 150 Mcg Tablet 1 Tab PO DAILY06 Bupropion Hcl Sr (Bupropion Hcl) 150 Mg Tablet.er 1 Tab PO DAILY Atorvastatin Calcium 10 Mg Tablet 1 Tab PO HS I have reviewed the current psychotropics carefully including drug interactions. Risk benefit ratio favors no change other than as noted in my dictated progress note. Diagnosis: Problems: (1) Hypoglycemia (2) Behavioral problem (3) Bipolar 1 disorder, mixed, moderate (4) Impulse control disorder (5) Major depressive disorder, recurrent episode (6) Personality disorder in adult JEB WOODS MD Aug 25, 2018 22:27
[2018-08-26 06:09] VITALS: BP 142/69
[2018-08-26] MEDS: LEVOTHYROXINE 150 MCG TABLET PO SCH (06:11)
[2018-08-26] MEDS: INSULIN LISPRO 300 UNITS/3 ML INSULN.PEN. SQ SCH ×6 (08:00→17:00)
[2018-08-26] MEDS: buPROPion XL 150 MG TAB.ER.24H PO SCH (08:31)
[2018-08-26] MEDS: CETIRIZINE HCL 10 MG TABLET PO SCH (08:31)
[2018-08-26] MEDS: LISINOPRIL 5 MG TABLET. PO SCH ×2 (08:31→20:41)
[2018-08-26] MEDS: FERROUS SULFATE 325 MG TABLET. PO SCH ×2 (08:31→20:41)
[2018-08-26] MEDS: ASPIRIN ENTERIC COATED 81 MG TABLET.DR. PO SCH (08:31)
[2018-08-26] MEDS: POTASSIUM CHLORIDE 20 MEQ TABLET.ER. PO SCH (08:31)
[2018-08-26] MEDS: GABAPENTIN 300 MG CAPSULE. PO SCH ×2 (08:32→20:41)
[2018-08-26] MEDS: THIAMINE 100 MG TABLET. PO SCH (08:32)
[2018-08-26] MEDS: CYANOCOBALAMIN (VITAMIN B-12) 1,000 MCG TABLET. PO SCH (08:32)
[2018-08-26] MEDS: CHOLECALCIFEROL (VITAMIN D3) 1,000 UNIT TABLET PO SCH (08:32)
[2018-08-26] MEDS: NICOTINE 14MG PATCH. TD SCH (08:32)
[2018-08-26] MEDS: INSULIN GLARGINE 300 UNITS/3 ML INSULN.PEN. SQ SCH ×2 (08:44→20:45)
[2018-08-26 16:51] VITALS: BP 132/82
[2018-08-26] MEDS: FAMOTIDINE 20 MG TABLET PO SCH (20:40)
[2018-08-26] MEDS: QUEtiapine 50 MG TABLET. PO SCH (20:40)
[2018-08-26] MEDS: MELATONIN 3 MG TABLET PO SCH (20:41)
[2018-08-26] MEDS: ATORVASTATIN CALCIUM 10 MG TABLET. PO SCH (20:41)
[2018-08-26] MEDS: TAMSULOSIN 0.4 MG CAP.ER.24H. PO SCH (20:41)
--- NOTE | 2018-08-26 22:38 | PDOC ---
Exam Note: Jaime Note: Please also refer to the separate dictated note~for this date of service dictated separately.~Patient seen individually. Discussed the patient with Nursing staff reviewed the chart.~Reviewed interim history and current functioning. Reviewed vital signs,~Labs/ Radiology~and current medications noted below. Continue current treatment with the changes noted in the dictated addendum note Assessment: Vital Signs: Vital Signs Date Time Temp Pulse Resp B/P (MAP) Pulse Ox O2 Delivery O2 Flow Rate FiO2 08/26/18 20:41 56 132/82 08/26/18 16:51 98.6 18 98 08/24/18 15:54 Room Air I&O Intake and Output 08/26/18 07:01 Intake Total 1560 ml Balance 1560 ml Intake Oral 1560 ml # Bowel Movements 1 Labs: Laboratory Tests Test 08/26/18 07:33 08/26/18 12:01 08/26/18 17:14 08/26/18 19:29 Glucose (Fingerstick) 254 mg/dL (70-99) H 258 mg/dL (70-99) H 51 mg/dL (70-99) L 256 mg/dL (70-99) H Current Medications: Meds: Current Medications Acetaminophen (Tylenol) 650 mg PRN Q6HRS PRN PO PAIN / TEMP; Start 08/19/18 at 15:15; Status Cancel Multi-Ingredient Ointment (Analgesic [place]) 1 del PRN QID PRN TP MUSCLE PAIN; Start 08/19/18 at 15:15 Al Hydroxide/Mg Hydroxide (Mylanta Plus Xs) 15 ml PRN AFTMEALHC PRN PO DYSPEPSIA; Start 08/19/18 at 15:15 Magnesium Hydroxide (Milk Of Magnesia) 2,400 mg PRN QHS PRN PO CONSTIPATION; Start 08/19/18 at 15:15 Nicotine (Nicoderm Cq 14mg) 1 patch DAILY TD Last administered on 08/26/18at 08: 32; Start 08/20/18 at 09:00 Acetaminophen (Tylenol) 500 mg PRN Q6HRS PRN PO PAIN; Start 08/19/18 at 16:00 Vitamin D (Vitamin D3) 1,000 unit DAILY PO Last administered on 08/26/18at 08:32 ; Start 08/20/18 at 09:00 Cyanocobalamin (Vitamin B-12) 1,000 mcg DAILY PO Last administered on 08/26/18 08:32; Start 08/20/18 at 09:00 Ferrous Sulfate (Feosol) 325 mg BID PO Last administered on 08/26/18 20:41; Start 08/19/18 at 21:00 Tamsulosin HCl (Flomax) 0.4 mg HS PO Last administered on 08/26/18 20:41; Start 08/19/18 at 21:00 Aspirin (Aspirin Enteric Coated) 81 mg DAILY PO Last administered on 08/26/18 08:31; Start 08/20/18 at 09:00 Atorvastatin Calcium (Lipitor) 10 mg QHS PO Last administered on 08/26/18 20:41 ; Start 08/19/18 at 21:00 Bupropion HCl (Wellbutrin Xl) 150 mg DAILY PO Last administered on 08/26/18 08: 31; Start 08/20/18 at 09:00 Gabapentin (Neurontin) 300 mg BID PO Last administered on 08/26/18 20:41; Start 08/19/18 at 21:00 Levothyroxine Sodium (Synthroid) 150 mcg DAILY06 PO Last administered on 06:11; Start 08/20/18 at 06:00 Lisinopril (Prinivil) 5 mg BID PO Last administered on 08/26/18 20:41; Start at 21:00 Loperamide HCl (Imodium) 2 mg PRN Q4HRS PRN PO DIARRHEA; Start 08/19/18 at 16: 15 Cetirizine HCl (ZyrTEC) 10 mg DAILY PO Last administered on 08/26/18 08:31; Start 08/20/18 at 09:00 Melatonin 6 mg QHS PO Last administered on 08/26/18 20:41; Start 08/19/18 at 21 :00 Potassium Chloride (Klor-Con) 20 meq DAILY PO Last administered on 08/26/18 08: 31; Start 08/20/18 at 09:00 Famotidine (Pepcid) 20 mg QHS PO Last administered on 08/26/18 20:40; Start at 21:00 Simethicone (Gas-X) 120 mg PRN Q6HRS PRN PO GAS / BLOATING; Start 08/19/18 at 16:15 Thiamine HCl (Vitamin B-1) 100 mg DAILY PO Last administered on 08/26/18 08:32 ; Start 08/20/18 at 09:00 Insulin Glargine (Lantus) 14 units QHS SQ Last administered on 08/19/18at 20:27 ; Start 08/19/18 at 21:00; Stop 08/20/18 at 12:53; Status DC Non-Formulary Medication (Insulin Lispro (Humalog)) 5 unit TIDAC SQ ; Start at 07:30; Stop 08/20/18 at 07:30; Status DC Insulin Human Lispro (HumaLOG) 5 units TIDAC SQ Last administered on 08/20/18at 12:13; Start 08/19/18 at 17:30; Stop 08/20/18 at 12:53; Status DC Insulin Glargine (Lantus) 14 units BID SQ Last administered on 08/26/18at 20:45; Start 08/20/18 at 21:00 Insulin Human Lispro (HumaLOG) 8 units TIDAC SQ Last administered on 08/26/18 12:15; Start 08/20/18 at 16:30 Quetiapine Fumarate (SEROquel) 50 mg QHS PO Last administered on 08/26/18 20:40 ; Start 08/21/18 at 21:00 Insulin Human Lispro (HumaLOG) 0-9 UNITS TIDWMEALS SQ Last administered on at 12:17; Start 08/24/18 at 17:00 Dextrose 12.5 gm PRN Q15MIN PRN IV SEE COMMENTS; Start 08/24/18 at 16:00 Glucose (Insta-Glucose) 15 gm PRN Q15MIN PRN PO LOW BLOOD SUGAR; Start 08/24/18 at 16:00 Buspirone HCl (Buspar) 10 mg BID@0900,1700 PRN PO ANXIETY; Start 08/27/18 at 09: 00 Active Scripts Active Reported Humalog (Insulin Lispro) 100 Unit/1 Ml Vial 5 Unit SQ TIDAC Lantus Solostar (Insulin Glargine,Hum.rec.anlog) 100 Unit/1 Ml Insuln.pen 14 Unit SQ QHS Gas Relief (Simethicone) 125 Mg Tab.chew 125 Mg PO Q6HRS PRN Tylenol (Acetaminophen) 325 Mg Tablet 500 Mg PO Q6HRS PRN Aspir-Low (Aspirin) 81 Mg Tablet.dr 1 Tab PO DAILY Lisinopril 5 Mg Tablet 1 Tab PO BID Ferrous Sulfate 325 Mg Tablet 1 Tab PO BID Vitamin B-1 (Thiamine Hcl) 100 Mg Tablet 100 Mg PO DAILY Potassium Chloride 10 Meq Tablet.er 20 Meq PO DAILY Loratadine 10 Mg Tablet 1 Tab PO DAILY Vitamin B-12 (Cyanocobalamin (Vitamin B-12)) 1,000 Mcg Tablet 1 Tab PO DAILY Vitamin D3 (Cholecalciferol (Vitamin D3)) 1,000 Unit Tablet 1 Tab PO DAILY Loperamide (Loperamide Hcl) 2 Mg Capsule 2 Mg PO Q4HRS PRN Ranitidine Hcl 150 Mg Tablet 1 Tab PO HS Gabapentin 300 Mg Capsule 1 Cap PO BID Tamsulosin Hcl 0.4 Mg Cap.er.24h 1 Cap PO HS Melatonin 3 Mg Tablet 5 Mg PO HS Synthroid (Levothyroxine Sodium) 150 Mcg Tablet 1 Tab PO DAILY06 Bupropion Hcl Sr (Bupropion Hcl) 150 Mg Tablet.er 1 Tab PO DAILY Atorvastatin Calcium 10 Mg Tablet 1 Tab PO HS I have reviewed the current psychotropics carefully including drug interactions. Risk benefit ratio favors no change other than as noted in my dictated progress note. Diagnosis: Problems: (1) Hypoglycemia (2) Behavioral problem (3) Bipolar 1 disorder, mixed, moderate (4) Impulse control disorder (5) Major depressive disorder, recurrent episode (6) Personality disorder in adult JEB WOODS MD Aug 26, 2018 22:38
--- NOTE | 2018-08-26 23:27 | PN ---
DATE: 08/25/2018 PSYCHIATRIC PROGRESS NOTE This late entry 08/25/2017 covers elements not covered in my initial note. SUBJECTIVE: I met with the patient in the evening. The patient slept 8 hours previous night. Previous night, he was compliant with medications and cares. He seems to get obsessively stuck on certain things and was stuck on some physical complaints. REVIEW OF SYSTEMS: Concerned about his blood sugars. No CV, , pulmonary, eye system symptoms on review. MENTAL STATUS EXAM: Oriented to himself and situation. Speech is coherent, at times a little pressured. Abstraction fair, computation impaired, language function intact, attention span short. Mood and affect remain somewhat anxious, labile. LABORATORY DATA: Reviewed. IMPRESSION: Unchanged from initial note. PLAN: No change from initial note and we addressed his past alcohol abuse, need to abstain from alcohol. MAN Nathan WOODS MD DR: CEM/augusto JOB#: [id number] / [id number]
[2018-08-27] MEDS: LEVOTHYROXINE 150 MCG TABLET PO SCH (05:38)
[2018-08-27 05:46] VITALS: BP 117/60
[2018-08-27] MEDS: CETIRIZINE HCL 10 MG TABLET PO SCH (07:56)
[2018-08-27] MEDS: THIAMINE 100 MG TABLET. PO SCH (07:56)
[2018-08-27] MEDS: CYANOCOBALAMIN (VITAMIN B-12) 1,000 MCG TABLET. PO SCH (07:56)
[2018-08-27] MEDS: LISINOPRIL 5 MG TABLET. PO SCH ×2 (07:56→19:54)
[2018-08-27] MEDS: FERROUS SULFATE 325 MG TABLET. PO SCH ×2 (07:56→19:53)
[2018-08-27] MEDS: CHOLECALCIFEROL (VITAMIN D3) 1,000 UNIT TABLET PO SCH (07:57)
[2018-08-27] MEDS: GABAPENTIN 300 MG CAPSULE. PO SCH ×2 (07:57→19:52)
[2018-08-27] MEDS: POTASSIUM CHLORIDE 20 MEQ TABLET.ER. PO SCH (07:57)
[2018-08-27] MEDS: ASPIRIN ENTERIC COATED 81 MG TABLET.DR. PO SCH (07:58)
[2018-08-27] MEDS: NICOTINE 14MG PATCH. TD SCH (07:59)
[2018-08-27] MEDS: buPROPion XL 150 MG TAB.ER.24H PO SCH (07:59)
[2018-08-27] MEDS: INSULIN LISPRO 300 UNITS/3 ML INSULN.PEN. SQ SCH ×6 (10:01→17:18)
[2018-08-27] MEDS: INSULIN GLARGINE 300 UNITS/3 ML INSULN.PEN. SQ SCH ×2 (10:06→20:11)
[2018-08-27 15:56] VITALS: BP 136/78
--- NOTE | 2018-08-27 19:51 | PN ---
DATE: 08/26/2018 PSYCHIATRIC PROGRESS NOTE This late entry for 08/26/2017 covers elements not covered in my initial note. SUBJECTIVE: I met with the patient in the evening. The patient slept 8-1/4 hours previous night. He continues to complain repeatedly of different things on the unit per nursing report. Earlier in the day per nursing report, he was complaining about his scrotum hurting and wanted a specific [employer] salad rather than regular meal that was being served. Remains anxious. We are awaiting records from [facility] in [place] and we contacted them and they mailed it to us. REVIEW OF SYSTEMS: Positive for vague somatic symptoms. No CV, , pulmonary, eye system symptoms on review. MENTAL STATUS EXAM: Oriented to himself and situation. Speech is coherent, abstraction fair, computation impaired, language function intact, attention span short. Mood and affect somewhat anxious, labile at times. He seems to have an ongoing thought disorder with some circumstantiality evident. I addressed this with him at some length. LABORATORY DATA: Reviewed. IMPRESSION: Unchanged from initial note. PLAN: No change from initial note, but we will start BuSpar 5 mg 9:00 a.m., 5:00 p.m. for his anxiety symptoms. JEB WOODS MD DR: CEM/augusto JOB#: [id number] / [id number]
[2018-08-27] MEDS: MELATONIN 3 MG TABLET PO SCH (19:53)
[2018-08-27] MEDS: FAMOTIDINE 20 MG TABLET PO SCH (19:53)
[2018-08-27] MEDS: QUEtiapine 50 MG TABLET. PO SCH (19:54)
[2018-08-27] MEDS: TAMSULOSIN 0.4 MG CAP.ER.24H. PO SCH (19:54)
[2018-08-27] MEDS: ATORVASTATIN CALCIUM 10 MG TABLET. PO SCH (19:54)
[2018-08-27] MEDS: busPIRone 5 MG TABLET. PO PRN (19:54)
--- NOTE | 2018-08-27 22:25 | PDOC ---
Exam Note: Jaime Note: Please also refer to the separate dictated note~for this date of service dictated separately.~Patient seen individually. Discussed the patient with Nursing staff reviewed the chart.~Reviewed interim history and current functioning. Reviewed vital signs,~Labs/ Radiology~and current medications noted below. Continue current treatment with the changes noted in the dictated addendum note Assessment: Vital Signs: Vital Signs Date Time Temp Pulse Resp B/P (MAP) Pulse Ox O2 Delivery O2 Flow Rate FiO2 08/27/18 19:54 64 136/78 08/27/18 15:56 98.8 20 98 08/24/18 15:54 Room Air I&O Intake and Output 08/27/18 07:01 Intake Total 960 ml Balance 960 ml Intake Oral 960 ml # Voids 1 Labs: Laboratory Tests Test 08/27/18 07:31 08/27/18 11:51 08/27/18 16:22 08/27/18 19:14 Glucose (Fingerstick) 298 mg/dL (70-99) H 107 mg/dL (70-99) H 226 mg/dL (70-99) H 81 mg/dL (70-99) Current Medications: Meds: Current Medications Acetaminophen (Tylenol) 650 mg PRN Q6HRS PRN PO PAIN / TEMP; Start 08/19/18 at 15:15; Status Cancel Multi-Ingredient Ointment (Analgesic [place]) 1 del PRN QID PRN TP MUSCLE PAIN; Start 08/19/18 at 15:15 Al Hydroxide/Mg Hydroxide (Mylanta Plus Xs) 15 ml PRN AFTMEALHC PRN PO DYSPEPSIA; Start 08/19/18 at 15:15 Magnesium Hydroxide (Milk Of Magnesia) 2,400 mg PRN QHS PRN PO CONSTIPATION; Start 08/19/18 at 15:15 Nicotine (Nicoderm Cq 14mg) 1 patch DAILY TD Last administered on 08/27/18at 07: 59; Start 08/20/18 at 09:00 Acetaminophen (Tylenol) 500 mg PRN Q6HRS PRN PO PAIN; Start 08/19/18 at 16:00 Vitamin D (Vitamin D3) 1,000 unit DAILY PO Last administered on 08/27/18at 07:57 ; Start 08/20/18 at 09:00 Cyanocobalamin (Vitamin B-12) 1,000 mcg DAILY PO Last administered on 08/27/18 07:56; Start 08/20/18 at 09:00 Ferrous Sulfate (Feosol) 325 mg BID PO Last administered on 08/27/18 19:53; Start 08/19/18 at 21:00 Tamsulosin HCl (Flomax) 0.4 mg HS PO Last administered on 08/27/18 19:54; Start 08/19/18 at 21:00 Aspirin (Aspirin Enteric Coated) 81 mg DAILY PO Last administered on 08/27/18 07:58; Start 08/20/18 at 09:00 Atorvastatin Calcium (Lipitor) 10 mg QHS PO Last administered on 08/27/18 19:54 ; Start 08/19/18 at 21:00 Bupropion HCl (Wellbutrin Xl) 150 mg DAILY PO Last administered on 08/27/18 07: 59; Start 08/20/18 at 09:00; Stop 08/27/18 at 14:20; Status DC Gabapentin (Neurontin) 300 mg BID PO Last administered on 08/27/18 19:52; Start 08/19/18 at 21:00 Levothyroxine Sodium (Synthroid) 150 mcg DAILY06 PO Last administered on 05:38; Start 08/20/18 at 06:00 Lisinopril (Prinivil) 5 mg BID PO Last administered on 08/27/18 19:54; Start at 21:00 Loperamide HCl (Imodium) 2 mg PRN Q4HRS PRN PO DIARRHEA; Start 08/19/18 at 16: 15 Cetirizine HCl (ZyrTEC) 10 mg DAILY PO Last administered on 08/27/18 07:56; Start 08/20/18 at 09:00 Melatonin 6 mg QHS PO Last administered on 08/27/18 19:53; Start 08/19/18 at 21 :00 Potassium Chloride (Klor-Con) 20 meq DAILY PO Last administered on 08/27/18 07: 57; Start 08/20/18 at 09:00 Famotidine (Pepcid) 20 mg QHS PO Last administered on 08/27/18 19:53; Start at 21:00 Simethicone (Gas-X) 120 mg PRN Q6HRS PRN PO GAS / BLOATING; Start 08/19/18 at 16:15 Thiamine HCl (Vitamin B-1) 100 mg DAILY PO Last administered on 08/27/18at 07:56 ; Start 08/20/18 at 09:00 Insulin Glargine (Lantus) 14 units QHS SQ Last administered on 08/19/18at 20:27 ; Start 08/19/18 at 21:00; Stop 08/20/18 at 12:53; Status DC Non-Formulary Medication (Insulin Lispro (Humalog)) 5 unit TIDAC SQ ; Start at 07:30; Stop 08/20/18 at 07:30; Status DC Insulin Human Lispro (HumaLOG) 5 units TIDAC SQ Last administered on 08/20/18at 12:13; Start 08/19/18 at 17:30; Stop 08/20/18 at 12:53; Status DC Insulin Glargine (Lantus) 14 units BID SQ Last administered on 08/27/18at 20:11; Start 08/20/18 at 21:00 Insulin Human Lispro (HumaLOG) 8 units TIDAC SQ Last administered on 08/27/18at 17:11; Start 08/20/18 at 16:30 Quetiapine Fumarate (SEROquel) 50 mg QHS PO Last administered on 08/27/18at 19:54 ; Start 08/21/18 at 21:00 Insulin Human Lispro (HumaLOG) 0-9 UNITS TIDWMEALS SQ Last administered on at 17:18; Start 08/24/18 at 17:00 Dextrose 12.5 gm PRN Q15MIN PRN IV SEE COMMENTS; Start 08/24/18 at 16:00 Glucose (Insta-Glucose) 15 gm PRN Q15MIN PRN PO LOW BLOOD SUGAR; Start 08/24/18 at 16:00 Buspirone HCl (Buspar) 10 mg BID@0900,1700 PRN PO ANXIETY; Start 08/27/18 at 09: 00 Bupropion HCl (Wellbutrin Xl) 300 mg DAILY PO ; Start 08/28/18 at 09:00 Active Scripts Active Reported Humalog (Insulin Lispro) 100 Unit/1 Ml Vial 5 Unit SQ TIDAC Lantus Solostar (Insulin Glargine,Hum.rec.anlog) 100 Unit/1 Ml Insuln.pen 14 Unit SQ QHS Gas Relief (Simethicone) 125 Mg Tab.chew 125 Mg PO Q6HRS PRN Tylenol (Acetaminophen) 325 Mg Tablet 500 Mg PO Q6HRS PRN Aspir-Low (Aspirin) 81 Mg Tablet.dr 1 Tab PO DAILY Lisinopril 5 Mg Tablet 1 Tab PO BID Ferrous Sulfate 325 Mg Tablet 1 Tab PO BID Vitamin B-1 (Thiamine Hcl) 100 Mg Tablet 100 Mg PO DAILY Potassium Chloride 10 Meq Tablet.er 20 Meq PO DAILY Loratadine 10 Mg Tablet 1 Tab PO DAILY Vitamin B-12 (Cyanocobalamin (Vitamin B-12)) 1,000 Mcg Tablet 1 Tab PO DAILY Vitamin D3 (Cholecalciferol (Vitamin D3)) 1,000 Unit Tablet 1 Tab PO DAILY Loperamide (Loperamide Hcl) 2 Mg Capsule 2 Mg PO Q4HRS PRN Ranitidine Hcl 150 Mg Tablet 1 Tab PO HS Gabapentin 300 Mg Capsule 1 Cap PO BID Tamsulosin Hcl 0.4 Mg Cap.er.24h 1 Cap PO HS Melatonin 3 Mg Tablet 5 Mg PO HS Synthroid (Levothyroxine Sodium) 150 Mcg Tablet 1 Tab PO DAILY06 Bupropion Hcl Sr (Bupropion Hcl) 150 Mg Tablet.er 1 Tab PO DAILY Atorvastatin Calcium 10 Mg Tablet 1 Tab PO HS I have reviewed the current psychotropics carefully including drug interactions. Risk benefit ratio favors no change other than as noted in my dictated progress note. Diagnosis: Problems: (1) Hypoglycemia (2) Behavioral problem (3) Bipolar 1 disorder, mixed, moderate (4) Impulse control disorder (5) Major depressive disorder, recurrent episode (6) Personality disorder in adult JEB WOODS MD Aug 27, 2018 22:25
[2018-08-28] MEDS: LEVOTHYROXINE 150 MCG TABLET PO SCH (06:00)
[2018-08-28 06:32] VITALS: BP 119/71
[2018-08-28] MEDS: ASPIRIN ENTERIC COATED 81 MG TABLET.DR. PO SCH (08:15)
[2018-08-28] MEDS: THIAMINE 100 MG TABLET. PO SCH (08:15)
[2018-08-28] MEDS: POTASSIUM CHLORIDE 20 MEQ TABLET.ER. PO SCH (08:15)
[2018-08-28] MEDS: NICOTINE 14MG PATCH. TD SCH (08:15)
[2018-08-28] MEDS: busPIRone 5 MG TABLET. PO PRN (08:15)
[2018-08-28] MEDS: LISINOPRIL 5 MG TABLET. PO SCH ×2 (08:16→19:19)
[2018-08-28] MEDS: CHOLECALCIFEROL (VITAMIN D3) 1,000 UNIT TABLET PO SCH (08:16)
[2018-08-28] MEDS: CETIRIZINE HCL 10 MG TABLET PO SCH (08:16)
[2018-08-28] MEDS: CYANOCOBALAMIN (VITAMIN B-12) 1,000 MCG TABLET. PO SCH (08:16)
[2018-08-28] MEDS: GABAPENTIN 300 MG CAPSULE. PO SCH ×2 (08:16→19:19)
[2018-08-28] MEDS: FERROUS SULFATE 325 MG TABLET. PO SCH ×2 (08:16→19:19)
[2018-08-28] MEDS: INSULIN LISPRO 300 UNITS/3 ML INSULN.PEN. SQ SCH ×6 (08:18→17:23)
[2018-08-28] MEDS: buPROPion XL 300 MG TAB.ER.24H. PO SCH (09:21)
[2018-08-28] MEDS: INSULIN GLARGINE 300 UNITS/3 ML INSULN.PEN. SQ SCH ×2 (09:23→21:08)
[2018-08-28] MEDS: ACETAMINOPHEN 500 MG TABLET PO PRN ×2 (09:23→17:23)
[2018-08-28 10:11] LABS: BASO % 1 % (0-3); EOS # 0.1 x10^3/uL (0.0-0.7); EOS % 3 % (0-3); HEMATOCRIT 40.4 % (39.0-53.0); HEMOGLOBIN 13.4 g/dL (13.0-17.5); LYMPH # 1.1 x10^3/uL (1.0-4.8); LYMPH % 24 % (24-48); MEAN CORPUSCULAR HEMOGLOBIN 31 pg (25-35); MEAN CORPUSCULAR HGB CONC 33 g/dL (31-37); MEAN CORPUSCULAR VOLUME 93 fL (79-100); MONO # 0.5 x10^3/uL (0.0-1.1); MONO % 10 % (0-9); NEUT % 62 % (31-73); PLATELET COUNT 139 x10^3/uL (140-400); RED BLOOD COUNT 4.34 x10^6/uL (4.30-5.70); RED CELL DISTRIBUTION WIDTH 12.9 % (11.5-14.5); WHITE BLOOD COUNT 4.8 x10^3/uL (4.0-11.0)
[2018-08-28 10:22] LABS: ALBUMIN 3.9 g/dL (3.4-5.0); ALBUMIN/GLOBULIN RATIO 1.4 (1.0-1.7); CALCIUM 8.4 mg/dL (8.5-10.1); CREATININE 1.4 mg/dL (0.7-1.3); GFR 51.7; POTASSIUM 5.3 mmol/L (3.5-5.1); TOTAL BILIRUBIN 0.4 mg/dL (0.2-1.0); TOTAL PROTEIN 6.6 g/dL (6.4-8.2)
[2018-08-28 16:38] VITALS: BP 131/72
[2018-08-28] MEDS: QUEtiapine 50 MG TABLET. PO SCH (19:18)
[2018-08-28] MEDS: ATORVASTATIN CALCIUM 10 MG TABLET. PO SCH (19:19)
[2018-08-28] MEDS: FAMOTIDINE 20 MG TABLET PO SCH (19:19)
[2018-08-28] MEDS: MELATONIN 3 MG TABLET PO SCH (19:19)
[2018-08-28] MEDS: TAMSULOSIN 0.4 MG CAP.ER.24H. PO SCH (19:19)
--- NOTE | 2018-08-28 20:15 | PN ---
DATE: 08/27/2018 This late entry for 08/27/2018 covers elements not covered in my initial note. SUBJECTIVE: I met with the patient in the evening and staffed at a treatment team meeting with the entire team earlier in the day. The patient slept 7 hours previous night. Appetite 100%. Per nursing report, he is always negative and complaining about different things, has difficulty seeing positives in any situation and I addressed this at great length with him individually in the evening in his room. He is otherwise compliant. REVIEW OF SYSTEMS: No CV, , pulmonary, eye system symptoms on review. MENTAL STATUS EXAM: Oriented to himself and situation. Speech is coherent. Thought process, somewhat circumstantial. Abstraction fair, computation impaired, language function intact, attention span short. Mood and affect remain somewhat anxious, at times slightly labile. LABORATORY DATA: Reviewed. IMPRESSION: Unchanged from initial note. PLAN: Increase Wellbutrin-XL from 150 mg a day to 300 mg a day after he has been on 150 for 3 days. Continue Neurontin, Seroquel, BuSpar at the current dosage. MAN Nathan WOODS MD DR: CEM/augusto JOB#: [id number] / [id number]
--- NOTE | 2018-08-28 22:22 | PDOC ---
Exam Note: Jaime Note: Please also refer to the separate dictated note~for this date of service dictated separately.~Patient seen individually. Discussed the patient with Nursing staff reviewed the chart.~Reviewed interim history and current functioning. Reviewed vital signs,~Labs/ Radiology~and current medications noted below. Continue current treatment with the changes noted in the dictated addendum note Assessment: Vital Signs: Vital Signs Date Time Temp Pulse Resp B/P (MAP) Pulse Ox O2 Delivery O2 Flow Rate FiO2 08/28/18 19:19 65 131/72 08/28/18 16:38 97.5 18 98 08/24/18 15:54 Room Air I&O Intake and Output 08/28/18 07:01 Intake Total 1200 ml Balance 1200 ml Intake Oral 1200 ml # Bowel Movements 1 Labs: Laboratory Tests Test 08/28/18 07:41 08/28/18 09:50 08/28/18 11:11 08/28/18 16:55 Glucose (Fingerstick) 290 mg/dL (70-99) H 135 mg/dL (70-99) H 156 mg/dL (70-99) H White Blood Count 4.8 x10^3/uL (4.0-11.0) Red Blood Count 4.34 x10^6/uL (4.30-5.70) Hemoglobin 13.4 g/dL (13.0-17.5) Hematocrit 40.4 % (39.0-53.0) Mean Corpuscular Volume 93 fL (79-100) Mean Corpuscular Hemoglobin 31 pg (25-35) Mean Corpuscular Hemoglobin Concent 33 g/dL (31-37) Red Cell Distribution Width 12.9 % (11.5-14.5) Platelet Count 139 x10^3/uL (140-400) L Neutrophils (%) (Auto) 62 % (31-73) Lymphocytes (%) (Auto) 24 % (24-48) Monocytes (%) (Auto) 10 % (0-9) H Eosinophils (%) (Auto) 3 % (0-3) Basophils (%) (Auto) 1 % (0-3) Neutrophils # (Auto) 3.0 x10^3uL (1.8-7.7) Lymphocytes # (Auto) 1.1 x10^3/uL (1.0-4.8) Monocytes # (Auto) 0.5 x10^3/uL (0.0-1.1) Eosinophils # (Auto) 0.1 x10^3/uL (0.0-0.7) Basophils # (Auto) 0.0 x10^3/uL (0.0-0.2) Sodium Level 137 mmol/L (136-145) Potassium Level 5.3 mmol/L (3.5-5.1) H Chloride Level 103 mmol/L (98-107) Carbon Dioxide Level 29 mmol/L (21-32) Anion Gap 5 (6-14) L Blood Urea Nitrogen 22 mg/dL (8-26) Creatinine 1.4 mg/dL (0.7-1.3) H Estimated GFR (Cockcroft-Gault) 51.7 BUN/Creatinine Ratio 16 (6-20) Glucose Level 336 mg/dL (70-99) H Calcium Level 8.4 mg/dL (8.5-10.1) L Total Bilirubin 0.4 mg/dL (0.2-1.0) Aspartate Amino Transferase (AST) 26 U/L (15-37) Alanine Aminotransferase (ALT) 80 U/L (16-63) H Alkaline Phosphatase 81 U/L (46-116) Total Protein 6.6 g/dL (6.4-8.2) Albumin 3.9 g/dL (3.4-5.0) Albumin/Globulin Ratio 1.4 (1.0-1.7) Test 08/28/18 19:22 08/28/18 20:04 Glucose (Fingerstick) 51 mg/dL (70-99) L 109 mg/dL (70-99) H Current Medications: Meds: Current Medications Acetaminophen (Tylenol) 650 mg PRN Q6HRS PRN PO PAIN / TEMP; Start 08/19/18 at 15:15; Status Cancel Multi-Ingredient Ointment (Analgesic [place]) 1 del PRN QID PRN TP MUSCLE PAIN; Start 08/19/18 at 15:15 Al Hydroxide/Mg Hydroxide (Mylanta Plus Xs) 15 ml PRN AFTMEALHC PRN PO DYSPEPSIA; Start 08/19/18 at 15:15 Magnesium Hydroxide (Milk Of Magnesia) 2,400 mg PRN QHS PRN PO CONSTIPATION; Start 08/19/18 at 15:15 Nicotine (Nicoderm Cq 14mg) 1 patch DAILY TD Last administered on 08/28/18 08: 15; Start 08/20/18 at 09:00 Acetaminophen (Tylenol) 500 mg PRN Q6HRS PRN PO PAIN Last administered on 17:23; Start 08/19/18 at 16:00 Vitamin D (Vitamin D3) 1,000 unit DAILY PO Last administered on 08/28/18 08:16 ; Start 08/20/18 at 09:00 Cyanocobalamin (Vitamin B-12) 1,000 mcg DAILY PO Last administered on 08/28/18 08:16; Start 08/20/18 at 09:00 Ferrous Sulfate (Feosol) 325 mg BID PO Last administered on 08/28/18 19:19; Start 08/19/18 at 21:00 Tamsulosin HCl (Flomax) 0.4 mg HS PO Last administered on 08/28/18 19:19; Start 08/19/18 at 21:00 Aspirin (Aspirin Enteric Coated) 81 mg DAILY PO Last administered on 08/28/18 08:15; Start 08/20/18 at 09:00 Atorvastatin Calcium (Lipitor) 10 mg QHS PO Last administered on 08/28/18 19:19 ; Start 08/19/18 at 21:00 Bupropion HCl (Wellbutrin Xl) 150 mg DAILY PO Last administered on 08/27/18 07: 59; Start 08/20/18 at 09:00; Stop 08/27/18 at 14:20; Status DC Gabapentin (Neurontin) 300 mg BID PO Last administered on 08/28/18 19:19; Start 08/19/18 at 21:00 Levothyroxine Sodium (Synthroid) 150 mcg DAILY06 PO Last administered on 06:00; Start 08/20/18 at 06:00 Lisinopril (Prinivil) 5 mg BID PO Last administered on 08/28/18 19:19; Start at 21:00 Loperamide HCl (Imodium) 2 mg PRN Q4HRS PRN PO DIARRHEA; Start 08/19/18 at 16: 15 Cetirizine HCl (ZyrTEC) 10 mg DAILY PO Last administered on 08/28/18 08:16; Start 08/20/18 at 09:00 Melatonin 6 mg QHS PO Last administered on 08/28/18 19:19; Start 08/19/18 at 21 :00 Potassium Chloride (Klor-Con) 20 meq DAILY PO Last administered on 08/28/18 08: 15; Start 08/20/18 at 09:00 Famotidine (Pepcid) 20 mg QHS PO Last administered on 08/28/18 19:19; Start at 21:00 Simethicone (Gas-X) 120 mg PRN Q6HRS PRN PO GAS / BLOATING; Start 08/19/18 at 16:15 Thiamine HCl (Vitamin B-1) 100 mg DAILY PO Last administered on 08/28/18 08:15 ; Start 08/20/18 at 09:00 Insulin Glargine (Lantus) 14 units QHS SQ Last administered on 08/19/18 20:27 ; Start 08/19/18 at 21:00; Stop 08/20/18 at 12:53; Status DC Non-Formulary Medication (Insulin Lispro (Humalog)) 5 unit TIDAC SQ ; Start at 07:30; Stop 08/20/18 at 07:30; Status DC Insulin Human Lispro (HumaLOG) 5 units TIDAC SQ Last administered on 08/20/18at 12:13; Start 08/19/18 at 17:30; Stop 08/20/18 at 12:53; Status DC Insulin Glargine (Lantus) 14 units BID SQ Last administered on 08/28/18at 21:08; Start 08/20/18 at 21:00 Insulin Human Lispro (HumaLOG) 8 units TIDAC SQ Last administered on 08/28/18 17:22; Start 08/20/18 at 16:30 Quetiapine Fumarate (SEROquel) 50 mg QHS PO Last administered on 08/28/18 19:18 ; Start 08/21/18 at 21:00 Insulin Human Lispro (HumaLOG) 0-9 UNITS TIDWMEALS SQ Last administered on 17:23; Start 08/24/18 at 17:00 Dextrose 12.5 gm PRN Q15MIN PRN IV SEE COMMENTS; Start 08/24/18 at 16:00 Glucose (Insta-Glucose) 15 gm PRN Q15MIN PRN PO LOW BLOOD SUGAR; Start 08/24/18 at 16:00 Buspirone HCl (Buspar) 10 mg BID@0900,1700 PRN PO ANXIETY Last administered on 08/28/18at 08:15; Start 08/27/18 at 09:00; Stop 08/28/18 at 18:04; Status DC Bupropion HCl (Wellbutrin Xl) 300 mg DAILY PO Last administered on 08/28/18at 09: 21; Start 08/28/18 at 09:00 Buspirone HCl (Buspar) 10 mg BID@0900,1500 PO ; Start 08/29/18 at 09:00; Stop 08/29/18 at 23:50 Buspirone HCl (Buspar) 15 mg 0900,1500 PO ; Start 08/30/18 at 09:00 Active Scripts Active Reported Humalog (Insulin Lispro) 100 Unit/1 Ml Vial 5 Unit SQ TIDAC Lantus Solostar (Insulin Glargine,Hum.rec.anlog) 100 Unit/1 Ml Insuln.pen 14 Unit SQ QHS Gas Relief (Simethicone) 125 Mg Tab.chew 125 Mg PO Q6HRS PRN Tylenol (Acetaminophen) 325 Mg Tablet 500 Mg PO Q6HRS PRN Aspir-Low (Aspirin) 81 Mg Tablet.dr 1 Tab PO DAILY Lisinopril 5 Mg Tablet 1 Tab PO BID Ferrous Sulfate 325 Mg Tablet 1 Tab PO BID Vitamin B-1 (Thiamine Hcl) 100 Mg Tablet 100 Mg PO DAILY Potassium Chloride 10 Meq Tablet.er 20 Meq PO DAILY Loratadine 10 Mg Tablet 1 Tab PO DAILY Vitamin B-12 (Cyanocobalamin (Vitamin B-12)) 1,000 Mcg Tablet 1 Tab PO DAILY Vitamin D3 (Cholecalciferol (Vitamin D3)) 1,000 Unit Tablet 1 Tab PO DAILY Loperamide (Loperamide Hcl) 2 Mg Capsule 2 Mg PO Q4HRS PRN Ranitidine Hcl 150 Mg Tablet 1 Tab PO HS Gabapentin 300 Mg Capsule 1 Cap PO BID Tamsulosin Hcl 0.4 Mg Cap.er.24h 1 Cap PO HS Melatonin 3 Mg Tablet 5 Mg PO HS Synthroid (Levothyroxine Sodium) 150 Mcg Tablet 1 Tab PO DAILY06 Bupropion Hcl Sr (Bupropion Hcl) 150 Mg Tablet.er 1 Tab PO DAILY Atorvastatin Calcium 10 Mg Tablet 1 Tab PO HS I have reviewed the current psychotropics carefully including drug interactions. Risk benefit ratio favors no change other than as noted in my dictated progress note. Diagnosis: Problems: (1) Hypoglycemia (2) Behavioral problem (3) Bipolar 1 disorder, mixed, moderate (4) Impulse control disorder (5) Major depressive disorder, recurrent episode (6) Personality disorder in adult JEB WOODS MD Aug 28, 2018 22:21
[2018-08-29] MEDS: LEVOTHYROXINE 150 MCG TABLET PO SCH (05:41)
[2018-08-29 05:47] VITALS: BP 114/67
[2018-08-29] MEDS: POTASSIUM CHLORIDE 20 MEQ TABLET.ER. PO SCH (07:18)
[2018-08-29] MEDS: INSULIN LISPRO 300 UNITS/3 ML INSULN.PEN. SQ SCH ×6 (07:59→17:27)
[2018-08-29] MEDS: INSULIN GLARGINE 300 UNITS/3 ML INSULN.PEN. SQ SCH ×2 (08:00→19:49)
[2018-08-29] MEDS: THIAMINE 100 MG TABLET. PO SCH (08:02)
[2018-08-29] MEDS: CYANOCOBALAMIN (VITAMIN B-12) 1,000 MCG TABLET. PO SCH (08:02)
[2018-08-29] MEDS: CETIRIZINE HCL 10 MG TABLET PO SCH (08:02)
[2018-08-29] MEDS: CHOLECALCIFEROL (VITAMIN D3) 1,000 UNIT TABLET PO SCH (08:02)
[2018-08-29] MEDS: buPROPion XL 300 MG TAB.ER.24H. PO SCH (08:02)
[2018-08-29] MEDS: ASPIRIN ENTERIC COATED 81 MG TABLET.DR. PO SCH (08:03)
[2018-08-29] MEDS: LISINOPRIL 5 MG TABLET. PO SCH ×2 (08:06→19:45)
[2018-08-29] MEDS: NICOTINE 14MG PATCH. TD SCH (08:07)
[2018-08-29] MEDS: FERROUS SULFATE 325 MG TABLET. PO SCH ×2 (08:07→19:44)
[2018-08-29] MEDS: busPIRone 5 MG TABLET. PO SCH ×2 (08:11→16:28)
[2018-08-29] MEDS: GABAPENTIN 300 MG CAPSULE. PO SCH ×2 (08:11→19:44)
[2018-08-29] MEDS ORDERED: DEXTROSE 50% 25 GM / 50ML DISP.SYRIN. IV PRN (11:45)
[2018-08-29 16:22] VITALS: BP 111/73
[2018-08-29] MEDS: FAMOTIDINE 20 MG TABLET PO SCH (19:44)
[2018-08-29] MEDS: MELATONIN 3 MG TABLET PO SCH (19:44)
[2018-08-29] MEDS: ATORVASTATIN CALCIUM 10 MG TABLET. PO SCH (19:44)
[2018-08-29] MEDS: QUEtiapine 50 MG TABLET. PO SCH (19:44)
[2018-08-29] MEDS: TAMSULOSIN 0.4 MG CAP.ER.24H. PO SCH (19:45)
--- NOTE | 2018-08-29 20:29 | PN ---
DATE: 08/28/2018 This late entry for 08/28/2018 covers elements not covered in my initial note. SUBJECTIVE: Per nursing report, the patient has been attention-seeking, always very anxious, negative. Slept 7-1/2 hours. Very obsessive, labile regarding his blood sugars. I met with him at length in his room. REVIEW OF SYSTEMS: No CV, , pulmonary, eye, ENT system symptoms on review. MENTAL STATUS EXAM: Reasonably oriented. Speech coherent, is somewhat circumstantial. Abstraction fair, computation impaired, language function intact, attention span short. Mood and affect, somewhat anxious, labile. Reviewed over 100 pages of records from the [facility]. LABORATORY DATA: Reviewed. IMPRESSION: Unchanged from initial note. PLAN: Increase BuSpar from 10 b.i.d. to 15 b.i.d. after he has been on the 10 mg for 3 days. Rest unchanged from initial note. JEB WOODS MD DR: CEM/augusto JOB#: [id number] / [id number]
--- NOTE | 2018-08-29 22:29 | PDOC ---
Exam Note: Jaime Note: Please also refer to the separate dictated note~for this date of service dictated separately.~Patient seen individually. Discussed the patient with Nursing staff reviewed the chart.~Reviewed interim history and current functioning. Reviewed vital signs,~Labs/ Radiology~and current medications noted below. Continue current treatment with the changes noted in the dictated addendum note Assessment: Vital Signs: Vital Signs Date Time Temp Pulse Resp B/P (MAP) Pulse Ox O2 Delivery O2 Flow Rate FiO2 08/29/18 19:45 67 111/73 08/29/18 16:22 97.8 16 98 Room Air I&O Intake and Output 08/29/18 07:01 Intake Total 2280 ml Balance 2280 ml Intake Oral 2280 ml Labs: Laboratory Tests Test 08/29/18 07:13 08/29/18 11:31 08/29/18 16:55 08/29/18 19:16 Glucose (Fingerstick) 294 mg/dL (70-99) H 129 mg/dL (70-99) H 114 mg/dL (70-99) H 220 mg/dL (70-99) H Current Medications: Meds: Current Medications Acetaminophen (Tylenol) 650 mg PRN Q6HRS PRN PO PAIN / TEMP; Start 08/19/18 at 15:15; Status Cancel Multi-Ingredient Ointment (Analgesic [place]) 1 del PRN QID PRN TP MUSCLE PAIN; Start 08/19/18 at 15:15 Al Hydroxide/Mg Hydroxide (Mylanta Plus Xs) 15 ml PRN AFTMEALHC PRN PO DYSPEPSIA; Start 08/19/18 at 15:15 Magnesium Hydroxide (Milk Of Magnesia) 2,400 mg PRN QHS PRN PO CONSTIPATION; Start 08/19/18 at 15:15 Nicotine (Nicoderm Cq 14mg) 1 patch DAILY TD Last administered on 08/29/18at 08: 07; Start 08/20/18 at 09:00 Acetaminophen (Tylenol) 500 mg PRN Q6HRS PRN PO PAIN Last administered on at 17:23; Start 08/19/18 at 16:00 Vitamin D (Vitamin D3) 1,000 unit DAILY PO Last administered on 08/29/18at 08:02 ; Start 08/20/18 at 09:00 Cyanocobalamin (Vitamin B-12) 1,000 mcg DAILY PO Last administered on 08/29/18 08:02; Start 08/20/18 at 09:00 Ferrous Sulfate (Feosol) 325 mg BID PO Last administered on 08/29/18 19:44; Start 08/19/18 at 21:00 Tamsulosin HCl (Flomax) 0.4 mg HS PO Last administered on 08/29/18 19:45; Start 08/19/18 at 21:00 Aspirin (Aspirin Enteric Coated) 81 mg DAILY PO Last administered on 08/29/18 08:03; Start 08/20/18 at 09:00 Atorvastatin Calcium (Lipitor) 10 mg QHS PO Last administered on 08/29/18 19:44 ; Start 08/19/18 at 21:00 Bupropion HCl (Wellbutrin Xl) 150 mg DAILY PO Last administered on 08/27/18 07: 59; Start 08/20/18 at 09:00; Stop 08/27/18 at 14:20; Status DC Gabapentin (Neurontin) 300 mg BID PO Last administered on 08/29/18 19:44; Start 08/19/18 at 21:00 Levothyroxine Sodium (Synthroid) 150 mcg DAILY06 PO Last administered on 05:41; Start 08/20/18 at 06:00 Lisinopril (Prinivil) 5 mg BID PO Last administered on 08/29/18 19:45; Start at 21:00 Loperamide HCl (Imodium) 2 mg PRN Q4HRS PRN PO DIARRHEA; Start 08/19/18 at 16: 15 Cetirizine HCl (ZyrTEC) 10 mg DAILY PO Last administered on 08/29/18 08:02; Start 08/20/18 at 09:00 Melatonin 6 mg QHS PO Last administered on 08/29/18 19:44; Start 08/19/18 at 21 :00 Potassium Chloride (Klor-Con) 20 meq DAILY PO Last administered on 08/28/18 08: 15; Start 08/20/18 at 09:00; Stop 08/29/18 at 19:35; Status DC Famotidine (Pepcid) 20 mg QHS PO Last administered on 08/29/18 19:44; Start at 21:00 Simethicone (Gas-X) 120 mg PRN Q6HRS PRN PO GAS / BLOATING; Start 08/19/18 at 16:15 Thiamine HCl (Vitamin B-1) 100 mg DAILY PO Last administered on 08/29/18at 08:02 ; Start 08/20/18 at 09:00 Insulin Glargine (Lantus) 14 units QHS SQ Last administered on 08/19/18at 20:27 ; Start 08/19/18 at 21:00; Stop 08/20/18 at 12:53; Status DC Non-Formulary Medication (Insulin Lispro (Humalog)) 5 unit TIDAC SQ ; Start at 07:30; Stop 08/20/18 at 07:30; Status DC Insulin Human Lispro (HumaLOG) 5 units TIDAC SQ Last administered on 08/20/18at 12:13; Start 08/19/18 at 17:30; Stop 08/20/18 at 12:53; Status DC Insulin Glargine (Lantus) 14 units BID SQ Last administered on 08/29/18at 19:49; Start 08/20/18 at 21:00 Insulin Human Lispro (HumaLOG) 8 units TIDAC SQ Last administered on 08/29/18at 17:27; Start 08/20/18 at 16:30 Quetiapine Fumarate (SEROquel) 50 mg QHS PO Last administered on 08/29/18at 19:44 ; Start 08/21/18 at 21:00 Insulin Human Lispro (HumaLOG) 0-9 UNITS TIDWMEALS SQ Last administered on at 08:00; Start 08/24/18 at 17:00; Stop 08/29/18 at 11:50; Status DC Dextrose 12.5 gm PRN Q15MIN PRN IV SEE COMMENTS; Start 08/24/18 at 16:00 Glucose (Insta-Glucose) 15 gm PRN Q15MIN PRN PO LOW BLOOD SUGAR; Start 08/24/18 at 16:00 Buspirone HCl (Buspar) 10 mg BID@0900,1700 PRN PO ANXIETY Last administered on 08/28/18at 08:15; Start 08/27/18 at 09:00; Stop 08/28/18 at 18:04; Status DC Bupropion HCl (Wellbutrin Xl) 300 mg DAILY PO Last administered on 08/29/18at 08: 02; Start 08/28/18 at 09:00 Buspirone HCl (Buspar) 10 mg BID@0900,1500 PO Last administered on 08/29/18at 16: 28; Start 08/29/18 at 09:00; Stop 08/29/18 at 23:50 Buspirone HCl (Buspar) 15 mg 0900,1500 PO ; Start 08/30/18 at 09:00 Insulin Human Lispro (HumaLOG) 0-5 UNITS TIDWMEALS SQ ; Start 08/29/18 at 12:00 Dextrose 12.5 gm PRN Q15MIN PRN IV SEE COMMENTS; Start 08/29/18 at 11:45; Status UNV Active Scripts Active Reported Humalog (Insulin Lispro) 100 Unit/1 Ml Vial 5 Unit SQ TIDAC Lantus Solostar (Insulin Glargine,Hum.rec.anlog) 100 Unit/1 Ml Insuln.pen 14 Unit SQ QHS Gas Relief (Simethicone) 125 Mg Tab.chew 125 Mg PO Q6HRS PRN Tylenol (Acetaminophen) 325 Mg Tablet 500 Mg PO Q6HRS PRN Aspir-Low (Aspirin) 81 Mg Tablet.dr 1 Tab PO DAILY Lisinopril 5 Mg Tablet 1 Tab PO BID Ferrous Sulfate 325 Mg Tablet 1 Tab PO BID Vitamin B-1 (Thiamine Hcl) 100 Mg Tablet 100 Mg PO DAILY Potassium Chloride 10 Meq Tablet.er 20 Meq PO DAILY Loratadine 10 Mg Tablet 1 Tab PO DAILY Vitamin B-12 (Cyanocobalamin (Vitamin B-12)) 1,000 Mcg Tablet 1 Tab PO DAILY Vitamin D3 (Cholecalciferol (Vitamin D3)) 1,000 Unit Tablet 1 Tab PO DAILY Loperamide (Loperamide Hcl) 2 Mg Capsule 2 Mg PO Q4HRS PRN Ranitidine Hcl 150 Mg Tablet 1 Tab PO HS Gabapentin 300 Mg Capsule 1 Cap PO BID Tamsulosin Hcl 0.4 Mg Cap.er.24h 1 Cap PO HS Melatonin 3 Mg Tablet 5 Mg PO HS Synthroid (Levothyroxine Sodium) 150 Mcg Tablet 1 Tab PO DAILY06 Bupropion Hcl Sr (Bupropion Hcl) 150 Mg Tablet.er 1 Tab PO DAILY Atorvastatin Calcium 10 Mg Tablet 1 Tab PO HS I have reviewed the current psychotropics carefully including drug interactions. Risk benefit ratio favors no change other than as noted in my dictated progress note. Diagnosis: Problems: (1) Hypoglycemia (2) Behavioral problem (3) Bipolar 1 disorder, mixed, moderate (4) Impulse control disorder (5) Major depressive disorder, recurrent episode (6) Personality disorder in adult JEB WOODS MD Aug 29, 2018 22:29
[2018-08-30] MEDS: LEVOTHYROXINE 150 MCG TABLET PO SCH (04:54)
[2018-08-30 06:37] VITALS: BP 109/62
[2018-08-30] MEDS: CETIRIZINE HCL 10 MG TABLET PO SCH (07:46)
[2018-08-30] MEDS: LISINOPRIL 5 MG TABLET. PO SCH ×2 (07:46→19:43)
[2018-08-30] MEDS: CHOLECALCIFEROL (VITAMIN D3) 1,000 UNIT TABLET PO SCH (07:46)
[2018-08-30] MEDS: CYANOCOBALAMIN (VITAMIN B-12) 1,000 MCG TABLET. PO SCH (07:46)
[2018-08-30] MEDS: buPROPion XL 300 MG TAB.ER.24H. PO SCH (07:46)
[2018-08-30] MEDS: THIAMINE 100 MG TABLET. PO SCH (07:46)
[2018-08-30] MEDS: NICOTINE 14MG PATCH. TD SCH (07:47)
[2018-08-30] MEDS: FERROUS SULFATE 325 MG TABLET. PO SCH ×2 (07:47→19:34)
[2018-08-30] MEDS: ASPIRIN ENTERIC COATED 81 MG TABLET.DR. PO SCH (07:47)
[2018-08-30] MEDS: INSULIN GLARGINE 300 UNITS/3 ML INSULN.PEN. SQ SCH ×2 (07:50→19:45)
[2018-08-30] MEDS: busPIRone 15 MG TABLET. PO SCH ×2 (07:51→14:54)
[2018-08-30] MEDS: INSULIN LISPRO 300 UNITS/3 ML INSULN.PEN. SQ SCH ×6 (07:53→17:16)
[2018-08-30] MEDS: GABAPENTIN 300 MG CAPSULE. PO SCH ×2 (07:55→19:34)
[2018-08-30 16:39] VITALS: BP 124/73
[2018-08-30] MEDS: TAMSULOSIN 0.4 MG CAP.ER.24H. PO SCH (19:34)
[2018-08-30] MEDS: ATORVASTATIN CALCIUM 10 MG TABLET. PO SCH (19:34)
[2018-08-30] MEDS: QUEtiapine 50 MG TABLET. PO SCH (19:43)
[2018-08-30] MEDS: MELATONIN 3 MG TABLET PO SCH (19:43)
[2018-08-30] MEDS: FAMOTIDINE 20 MG TABLET PO SCH (19:43)
--- NOTE | 2018-08-30 21:49 | PDOC ---
Exam Note: Jaime Note: Please also refer to the separate dictated note~for this date of service dictated separately.~Patient seen individually. Discussed the patient with Nursing staff reviewed the chart.~Reviewed interim history and current functioning. Reviewed vital signs,~Labs/ Radiology~and current medications noted below. Continue current treatment with the changes noted in the dictated addendum note Assessment: Vital Signs: Vital Signs Date Time Temp Pulse Resp B/P (MAP) Pulse Ox O2 Delivery O2 Flow Rate FiO2 08/30/18 19:43 87 124/73 08/30/18 16:39 98.0 20 98 08/29/18 16:22 Room Air I&O Intake and Output 08/30/18 07:01 Intake Total 1325 ml Balance 1325 ml Intake Oral 1325 ml Labs: Laboratory Tests Test 08/30/18 07:17 08/30/18 11:35 08/30/18 16:31 08/30/18 19:25 Glucose (Fingerstick) 259 mg/dL (70-99) H 174 mg/dL (70-99) H 254 mg/dL (70-99) H 188 mg/dL (70-99) H Current Medications: Meds: Current Medications Acetaminophen (Tylenol) 650 mg PRN Q6HRS PRN PO PAIN / TEMP; Start 08/19/18 at 15:15; Status Cancel Multi-Ingredient Ointment (Analgesic [place]) 1 del PRN QID PRN TP MUSCLE PAIN; Start 08/19/18 at 15:15 Al Hydroxide/Mg Hydroxide (Mylanta Plus Xs) 15 ml PRN AFTMEALHC PRN PO DYSPEPSIA; Start 08/19/18 at 15:15 Magnesium Hydroxide (Milk Of Magnesia) 2,400 mg PRN QHS PRN PO CONSTIPATION; Start 08/19/18 at 15:15 Nicotine (Nicoderm Cq 14mg) 1 patch DAILY TD Last administered on 08/30/18at 07: 47; Start 08/20/18 at 09:00 Acetaminophen (Tylenol) 500 mg PRN Q6HRS PRN PO PAIN Last administered on at 17:23; Start 08/19/18 at 16:00 Vitamin D (Vitamin D3) 1,000 unit DAILY PO Last administered on 08/30/18at 07:46 ; Start 08/20/18 at 09:00 Cyanocobalamin (Vitamin B-12) 1,000 mcg DAILY PO Last administered on 08/30/18 07:46; Start 08/20/18 at 09:00 Ferrous Sulfate (Feosol) 325 mg BID PO Last administered on 08/30/18 19:34; Start 08/19/18 at 21:00 Tamsulosin HCl (Flomax) 0.4 mg HS PO Last administered on 08/30/18 19:34; Start 08/19/18 at 21:00 Aspirin (Aspirin Enteric Coated) 81 mg DAILY PO Last administered on 08/30/18 07:47; Start 08/20/18 at 09:00 Atorvastatin Calcium (Lipitor) 10 mg QHS PO Last administered on 08/30/18 19:34 ; Start 08/19/18 at 21:00 Bupropion HCl (Wellbutrin Xl) 150 mg DAILY PO Last administered on 08/27/18 07: 59; Start 08/20/18 at 09:00; Stop 08/27/18 at 14:20; Status DC Gabapentin (Neurontin) 300 mg BID PO Last administered on 08/30/18 19:34; Start 08/19/18 at 21:00 Levothyroxine Sodium (Synthroid) 150 mcg DAILY06 PO Last administered on 04:54; Start 08/20/18 at 06:00 Lisinopril (Prinivil) 5 mg BID PO Last administered on 08/30/18 19:43; Start at 21:00 Loperamide HCl (Imodium) 2 mg PRN Q4HRS PRN PO DIARRHEA; Start 08/19/18 at 16: 15 Cetirizine HCl (ZyrTEC) 10 mg DAILY PO Last administered on 08/30/18 07:46; Start 08/20/18 at 09:00 Melatonin 6 mg QHS PO Last administered on 08/30/18 19:43; Start 08/19/18 at 21 :00 Potassium Chloride (Klor-Con) 20 meq DAILY PO Last administered on 08/28/18 08: 15; Start 08/20/18 at 09:00; Stop 08/29/18 at 19:35; Status DC Famotidine (Pepcid) 20 mg QHS PO Last administered on 08/30/18 19:43; Start at 21:00 Simethicone (Gas-X) 120 mg PRN Q6HRS PRN PO GAS / BLOATING; Start 08/19/18 at 16:15 Thiamine HCl (Vitamin B-1) 100 mg DAILY PO Last administered on 08/30/18at 07:46 ; Start 08/20/18 at 09:00 Insulin Glargine (Lantus) 14 units QHS SQ Last administered on 08/19/18at 20:27 ; Start 08/19/18 at 21:00; Stop 08/20/18 at 12:53; Status DC Non-Formulary Medication (Insulin Lispro (Humalog)) 5 unit TIDAC SQ ; Start at 07:30; Stop 08/20/18 at 07:30; Status DC Insulin Human Lispro (HumaLOG) 5 units TIDAC SQ Last administered on 08/20/18at 12:13; Start 08/19/18 at 17:30; Stop 08/20/18 at 12:53; Status DC Insulin Glargine (Lantus) 14 units BID SQ Last administered on 08/30/18at 19:45; Start 08/20/18 at 21:00 Insulin Human Lispro (HumaLOG) 8 units TIDAC SQ Last administered on 08/30/18at 17:15; Start 08/20/18 at 16:30 Quetiapine Fumarate (SEROquel) 50 mg QHS PO Last administered on 08/30/18at 19:43 ; Start 08/21/18 at 21:00 Insulin Human Lispro (HumaLOG) 0-9 UNITS TIDWMEALS SQ Last administered on at 08:00; Start 08/24/18 at 17:00; Stop 08/29/18 at 11:50; Status DC Dextrose 12.5 gm PRN Q15MIN PRN IV SEE COMMENTS; Start 08/24/18 at 16:00 Glucose (Insta-Glucose) 15 gm PRN Q15MIN PRN PO LOW BLOOD SUGAR; Start 08/24/18 at 16:00 Buspirone HCl (Buspar) 10 mg BID@0900,1700 PRN PO ANXIETY Last administered on 08/28/18at 08:15; Start 08/27/18 at 09:00; Stop 08/28/18 at 18:04; Status DC Bupropion HCl (Wellbutrin Xl) 300 mg DAILY PO Last administered on 08/30/18at 07: 46; Start 08/28/18 at 09:00 Buspirone HCl (Buspar) 10 mg BID@0900,1500 PO Last administered on 08/29/18at 16: 28; Start 08/29/18 at 09:00; Stop 08/29/18 at 23:50; Status DC Buspirone HCl (Buspar) 15 mg 0900,1500 PO Last administered on 08/30/18at 14:54; Start 08/30/18 at 09:00 Insulin Human Lispro (HumaLOG) 0-5 UNITS TIDWMEALS SQ Last administered on at 17:16; Start 08/29/18 at 12:00 Dextrose 12.5 gm PRN Q15MIN PRN IV SEE COMMENTS; Start 08/29/18 at 11:45; Status UNV Active Scripts Active Reported Humalog (Insulin Lispro) 100 Unit/1 Ml Vial 5 Unit SQ TIDAC Lantus Solostar (Insulin Glargine,Hum.rec.anlog) 100 Unit/1 Ml Insuln.pen 14 Unit SQ QHS Gas Relief (Simethicone) 125 Mg Tab.chew 125 Mg PO Q6HRS PRN Tylenol (Acetaminophen) 325 Mg Tablet 500 Mg PO Q6HRS PRN Aspir-Low (Aspirin) 81 Mg Tablet.dr 1 Tab PO DAILY Lisinopril 5 Mg Tablet 1 Tab PO BID Ferrous Sulfate 325 Mg Tablet 1 Tab PO BID Vitamin B-1 (Thiamine Hcl) 100 Mg Tablet 100 Mg PO DAILY Potassium Chloride 10 Meq Tablet.er 20 Meq PO DAILY Loratadine 10 Mg Tablet 1 Tab PO DAILY Vitamin B-12 (Cyanocobalamin (Vitamin B-12)) 1,000 Mcg Tablet 1 Tab PO DAILY Vitamin D3 (Cholecalciferol (Vitamin D3)) 1,000 Unit Tablet 1 Tab PO DAILY Loperamide (Loperamide Hcl) 2 Mg Capsule 2 Mg PO Q4HRS PRN Ranitidine Hcl 150 Mg Tablet 1 Tab PO HS Gabapentin 300 Mg Capsule 1 Cap PO BID Tamsulosin Hcl 0.4 Mg Cap.er.24h 1 Cap PO HS Melatonin 3 Mg Tablet 5 Mg PO HS Synthroid (Levothyroxine Sodium) 150 Mcg Tablet 1 Tab PO DAILY06 Bupropion Hcl Sr (Bupropion Hcl) 150 Mg Tablet.er 1 Tab PO DAILY Atorvastatin Calcium 10 Mg Tablet 1 Tab PO HS I have reviewed the current psychotropics carefully including drug interactions. Risk benefit ratio favors no change other than as noted in my dictated progress note. Diagnosis: Problems: (1) Hypoglycemia (2) Behavioral problem (3) Bipolar 1 disorder, mixed, moderate (4) Impulse control disorder (5) Major depressive disorder, recurrent episode (6) Personality disorder in adult JEB WOODS MD Aug 30, 2018 21:49
--- NOTE | 2018-08-30 23:11 | PN ---
DATE: 08/29/2018 PSYCHIATRIC PROGRESS NOTE This late entry 08/29/2017 covers elements not covered in my initial note. SUBJECTIVE: I met with the patient in the evening at length in his room. Discussed with nursing staff, reviewed the chart. The patient slept 5-3/4 hours previous night. Potassium is being held since potassium level was 5.3. Otherwise, he continues to complain, remains somewhat obsessive, anxious, negative per nursing report. He has vague somatic symptoms. REVIEW OF SYSTEMS: No CV, , pulmonary, eye, ENT system symptoms on review. MENTAL STATUS EXAM: The patient is reasonably oriented. Speech coherent, anxious, restless, constantly moving, typical for him. Abstraction fair, computation impaired, language function intact, attention span short. Mood and affect remain somewhat anxious, labile. LABORATORY DATA: Reviewed. IMPRESSION: Unchanged from initial note. PLAN: No change from initial note, but after he has been on BuSpar 10 mg b.i.d. for 3 days, we will increase it to 15 mg b.i.d. starting 08/30/2018. MAN Nathan WOODS MD DR: CEM/augusto JOB#: [id number] / [id number]
[2018-08-31] MEDS: LEVOTHYROXINE 150 MCG TABLET PO SCH (05:09)
[2018-08-31 06:34] VITALS: BP 109/64
[2018-08-31] MEDS: CYANOCOBALAMIN (VITAMIN B-12) 1,000 MCG TABLET. PO SCH (07:51)
[2018-08-31] MEDS: NICOTINE 14MG PATCH. TD SCH (07:51)
[2018-08-31] MEDS: CHOLECALCIFEROL (VITAMIN D3) 1,000 UNIT TABLET PO SCH (07:51)
[2018-08-31] MEDS: THIAMINE 100 MG TABLET. PO SCH (07:51)
[2018-08-31] MEDS: FERROUS SULFATE 325 MG TABLET. PO SCH ×2 (07:52→20:59)
[2018-08-31] MEDS: buPROPion XL 300 MG TAB.ER.24H. PO SCH (07:52)
[2018-08-31] MEDS: ASPIRIN ENTERIC COATED 81 MG TABLET.DR. PO SCH (07:52)
[2018-08-31] MEDS: busPIRone 15 MG TABLET. PO SCH ×2 (07:52→15:54)
[2018-08-31] MEDS: CETIRIZINE HCL 10 MG TABLET PO SCH (07:52)
[2018-08-31] MEDS: LISINOPRIL 5 MG TABLET. PO SCH ×2 (07:54→20:59)
[2018-08-31] MEDS: GABAPENTIN 300 MG CAPSULE. PO SCH ×2 (08:13→21:00)
[2018-08-31] MEDS: INSULIN LISPRO 300 UNITS/3 ML INSULN.PEN. SQ SCH ×6 (08:14→17:17)
[2018-08-31] MEDS: INSULIN GLARGINE 300 UNITS/3 ML INSULN.PEN. SQ SCH ×2 (08:17→21:01)
[2018-08-31 16:52] VITALS: BP 122/74
[2018-08-31] MEDS: QUEtiapine 50 MG TABLET. PO SCH (20:59)
[2018-08-31] MEDS: TAMSULOSIN 0.4 MG CAP.ER.24H. PO SCH (20:59)
[2018-08-31] MEDS: ATORVASTATIN CALCIUM 10 MG TABLET. PO SCH (20:59)
[2018-08-31] MEDS: FAMOTIDINE 20 MG TABLET PO SCH (20:59)
[2018-08-31] MEDS: MELATONIN 3 MG TABLET PO SCH (21:00)
--- NOTE | 2018-08-31 22:40 | PDOC ---
Exam Note: Jaime Note: Please also refer to the separate dictated note~for this date of service dictated separately.~Patient seen individually. Discussed the patient with Nursing staff reviewed the chart.~Reviewed interim history and current functioning. Reviewed vital signs,~Labs/ Radiology~and current medications noted below. Continue current treatment with the changes noted in the dictated addendum note Assessment: Vital Signs: Vital Signs Date Time Temp Pulse Resp B/P (MAP) Pulse Ox O2 Delivery O2 Flow Rate FiO2 08/31/18 20:59 53 122/74 08/31/18 16:52 98.7 16 98 08/31/18 06:34 Room Air I&O Intake and Output 08/31/18 07:01 Intake Total 2040 ml Balance 2040 ml Intake Oral 2040 ml Labs: Laboratory Tests Test 08/31/18 08:02 08/31/18 12:03 08/31/18 17:12 08/31/18 19:19 Glucose (Fingerstick) 270 mg/dL (70-99) H 248 mg/dL (70-99) H 311 mg/dL (70-99) H 192 mg/dL (70-99) H Current Medications: Meds: Current Medications Acetaminophen (Tylenol) 650 mg PRN Q6HRS PRN PO PAIN / TEMP; Start 08/19/18 at 15:15; Status Cancel Multi-Ingredient Ointment (Analgesic [place]) 1 del PRN QID PRN TP MUSCLE PAIN; Start 08/19/18 at 15:15 Al Hydroxide/Mg Hydroxide (Mylanta Plus Xs) 15 ml PRN AFTMEALHC PRN PO DYSPEPSIA; Start 08/19/18 at 15:15 Magnesium Hydroxide (Milk Of Magnesia) 2,400 mg PRN QHS PRN PO CONSTIPATION; Start 08/19/18 at 15:15 Nicotine (Nicoderm Cq 14mg) 1 patch DAILY TD Last administered on 08/31/18at 07: 51; Start 08/20/18 at 09:00 Acetaminophen (Tylenol) 500 mg PRN Q6HRS PRN PO PAIN Last administered on at 17:23; Start 08/19/18 at 16:00 Vitamin D (Vitamin D3) 1,000 unit DAILY PO Last administered on 08/31/18at 07:51 ; Start 08/20/18 at 09:00 Cyanocobalamin (Vitamin B-12) 1,000 mcg DAILY PO Last administered on 07:51; Start 08/20/18 at 09:00 Ferrous Sulfate (Feosol) 325 mg BID PO Last administered on 08/31/18 20:59; Start 08/19/18 at 21:00 Tamsulosin HCl (Flomax) 0.4 mg HS PO Last administered on 08/31/18 20:59; Start 08/19/18 at 21:00 Aspirin (Aspirin Enteric Coated) 81 mg DAILY PO Last administered on 08/31/18 07:52; Start 08/20/18 at 09:00 Atorvastatin Calcium (Lipitor) 10 mg QHS PO Last administered on 08/31/18 20: 59; Start 08/19/18 at 21:00 Bupropion HCl (Wellbutrin Xl) 150 mg DAILY PO Last administered on 08/27/18 07: 59; Start 08/20/18 at 09:00; Stop 08/27/18 at 14:20; Status DC Gabapentin (Neurontin) 300 mg BID PO Last administered on 08/31/18 21:00; Start 08/19/18 at 21:00 Levothyroxine Sodium (Synthroid) 150 mcg DAILY06 PO Last administered on 05:09; Start 08/20/18 at 06:00 Lisinopril (Prinivil) 5 mg BID PO Last administered on 08/31/18 20:59; Start 08/19/18 at 21:00 Loperamide HCl (Imodium) 2 mg PRN Q4HRS PRN PO DIARRHEA; Start 08/19/18 at 16: 15 Cetirizine HCl (ZyrTEC) 10 mg DAILY PO Last administered on 08/31/18 07:52; Start 08/20/18 at 09:00 Melatonin 6 mg QHS PO Last administered on 08/31/18 21:00; Start 08/19/18 at 21:00 Potassium Chloride (Klor-Con) 20 meq DAILY PO Last administered on 08/28/18 08: 15; Start 08/20/18 at 09:00; Stop 08/29/18 at 19:35; Status DC Famotidine (Pepcid) 20 mg QHS PO Last administered on 2/10/19at 20:59; Start at 21:00 Simethicone (Gas-X) 120 mg PRN Q6HRS PRN PO GAS / BLOATING; Start 08/19/18 at 16:15 Thiamine HCl (Vitamin B-1) 100 mg DAILY PO Last administered on 08/31/18at 07:51 ; Start 08/20/18 at 09:00 Insulin Glargine (Lantus) 14 units QHS SQ Last administered on 08/19/18at 20:27 ; Start 08/19/18 at 21:00; Stop 08/20/18 at 12:53; Status DC Non-Formulary Medication (Insulin Lispro (Humalog)) 5 unit TIDAC SQ ; Start at 07:30; Stop 08/20/18 at 07:30; Status DC Insulin Human Lispro (HumaLOG) 5 units TIDAC SQ Last administered on 08/20/18at 12:13; Start 08/19/18 at 17:30; Stop 08/20/18 at 12:53; Status DC Insulin Glargine (Lantus) 14 units BID SQ Last administered on 08/31/18at 21:01 ; Start 08/20/18 at 21:00 Insulin Human Lispro (HumaLOG) 8 units TIDAC SQ Last administered on 08/31/18at 17:16; Start 08/20/18 at 16:30 Quetiapine Fumarate (SEROquel) 50 mg QHS PO Last administered on 08/31/18at 20: 59; Start 08/21/18 at 21:00 Insulin Human Lispro (HumaLOG) 0-9 UNITS TIDWMEALS SQ Last administered on at 08:00; Start 08/24/18 at 17:00; Stop 08/29/18 at 11:50; Status DC Dextrose 12.5 gm PRN Q15MIN PRN IV SEE COMMENTS; Start 08/24/18 at 16:00 Glucose (Insta-Glucose) 15 gm PRN Q15MIN PRN PO LOW BLOOD SUGAR; Start 08/24/18 at 16:00 Buspirone HCl (Buspar) 10 mg BID@0900,1700 PRN PO ANXIETY Last administered on 08/28/18at 08:15; Start 08/27/18 at 09:00; Stop 08/28/18 at 18:04; Status DC Bupropion HCl (Wellbutrin Xl) 300 mg DAILY PO Last administered on 08/31/18at 07 :52; Start 08/28/18 at 09:00 Buspirone HCl (Buspar) 10 mg BID@0900,1500 PO Last administered on 08/29/18at 16: 28; Start 08/29/18 at 09:00; Stop 08/29/18 at 23:50; Status DC Buspirone HCl (Buspar) 15 mg 0900,1500 PO Last administered on 08/31/18at 15:54 ; Start 08/30/18 at 09:00 Insulin Human Lispro (HumaLOG) 0-5 UNITS TIDWMEALS SQ Last administered on 08/31at 17:17; Start 08/29/18 at 12:00 Dextrose 12.5 gm PRN Q15MIN PRN IV SEE COMMENTS; Start 08/29/18 at 11:45; Status UNV Active Scripts Active Reported Humalog (Insulin Lispro) 100 Unit/1 Ml Vial 5 Unit SQ TIDAC Lantus Solostar (Insulin Glargine,Hum.rec.anlog) 100 Unit/1 Ml Insuln.pen 14 Unit SQ QHS Gas Relief (Simethicone) 125 Mg Tab.chew 125 Mg PO Q6HRS PRN Tylenol (Acetaminophen) 325 Mg Tablet 500 Mg PO Q6HRS PRN Aspir-Low (Aspirin) 81 Mg Tablet.dr 1 Tab PO DAILY Lisinopril 5 Mg Tablet 1 Tab PO BID Ferrous Sulfate 325 Mg Tablet 1 Tab PO BID Vitamin B-1 (Thiamine Hcl) 100 Mg Tablet 100 Mg PO DAILY Potassium Chloride 10 Meq Tablet.er 20 Meq PO DAILY Loratadine 10 Mg Tablet 1 Tab PO DAILY Vitamin B-12 (Cyanocobalamin (Vitamin B-12)) 1,000 Mcg Tablet 1 Tab PO DAILY Vitamin D3 (Cholecalciferol (Vitamin D3)) 1,000 Unit Tablet 1 Tab PO DAILY Loperamide (Loperamide Hcl) 2 Mg Capsule 2 Mg PO Q4HRS PRN Ranitidine Hcl 150 Mg Tablet 1 Tab PO HS Gabapentin 300 Mg Capsule 1 Cap PO BID Tamsulosin Hcl 0.4 Mg Cap.er.24h 1 Cap PO HS Melatonin 3 Mg Tablet 5 Mg PO HS Synthroid (Levothyroxine Sodium) 150 Mcg Tablet 1 Tab PO DAILY06 Bupropion Hcl Sr (Bupropion Hcl) 150 Mg Tablet.er 1 Tab PO DAILY Atorvastatin Calcium 10 Mg Tablet 1 Tab PO HS I have reviewed the current psychotropics carefully including drug interactions. Risk benefit ratio favors no change other than as noted in my dictated progress note. Diagnosis: Problems: (1) Hypoglycemia (2) Behavioral problem (3) Bipolar 1 disorder, mixed, moderate (4) Impulse control disorder (5) Major depressive disorder, recurrent episode (6) Personality disorder in adult JEB WOODS MD Aug 31, 2018 22:40
--- NOTE | 2018-08-31 23:20 | PN ---
DATE: 08/30/2018 PSYCHIATRIC PROGRESS NOTE This late entry 08/30/2018 covers elements not covered in my initial note. SUBJECTIVE: I met with the patient in the evening. The patient slept 8 hours previous night. He has been less attention seeking. He was seen by Dr. Torres for his hydrocele and is pleased with the visit. REVIEW OF SYSTEMS: Other than above, no CV, , pulmonary, eye system symptoms on review. MENTAL STATUS EXAM: Oriented to himself and situation. Speech coherent, somewhat circumstantial in his thought processes with rapid speech. Abstraction fair, computation impaired, language function intact, attention span short. Mood and affect remains somewhat anxious, at times labile. LABORATORY DATA: Reviewed. IMPRESSION: Unchanged from initial note. PLAN: No change from initial note. MAN Nathan WOODS MD DR: CEM/augusto JOB#: [id number] / [id number]
[2018-09-01 05:58] VITALS: BP 111/64
[2018-09-01] MEDS: LEVOTHYROXINE 150 MCG TABLET PO SCH (06:05)
[2018-09-01] MEDS: CYANOCOBALAMIN (VITAMIN B-12) 1,000 MCG TABLET. PO SCH (08:37)
[2018-09-01] MEDS: FERROUS SULFATE 325 MG TABLET. PO SCH ×2 (08:37→19:13)
[2018-09-01] MEDS: CETIRIZINE HCL 10 MG TABLET PO SCH (08:37)
[2018-09-01] MEDS: GABAPENTIN 300 MG CAPSULE. PO SCH ×2 (08:37→19:13)
[2018-09-01] MEDS: buPROPion XL 300 MG TAB.ER.24H. PO SCH (08:37)
[2018-09-01] MEDS: CHOLECALCIFEROL (VITAMIN D3) 1,000 UNIT TABLET PO SCH (08:37)
[2018-09-01] MEDS: THIAMINE 100 MG TABLET. PO SCH (08:37)
[2018-09-01] MEDS: busPIRone 15 MG TABLET. PO SCH ×2 (08:37→15:03)
[2018-09-01] MEDS: ASPIRIN ENTERIC COATED 81 MG TABLET.DR. PO SCH (08:37)
[2018-09-01] MEDS: NICOTINE 14MG PATCH. TD SCH (08:38)
[2018-09-01] MEDS: LISINOPRIL 5 MG TABLET. PO SCH ×2 (08:38→19:14)
[2018-09-01] MEDS: INSULIN LISPRO 300 UNITS/3 ML INSULN.PEN. SQ SCH ×6 (08:40→17:43)
[2018-09-01] MEDS: INSULIN GLARGINE 300 UNITS/3 ML INSULN.PEN. SQ SCH ×2 (08:43→19:36)
[2018-09-01 13:22] LABS: BASO % 1 % (0-3); EOS # 0.1 x10^3/uL (0.0-0.7); EOS % 3 % (0-3); HEMATOCRIT 37.6 % (39.0-53.0); HEMOGLOBIN 12.7 g/dL (13.0-17.5); LYMPH # 1.6 x10^3/uL (1.0-4.8); LYMPH % 28 % (24-48); MEAN CORPUSCULAR HEMOGLOBIN 31 pg (25-35); MEAN CORPUSCULAR HGB CONC 34 g/dL (31-37); MEAN CORPUSCULAR VOLUME 92 fL (79-100); MONO # 0.6 x10^3/uL (0.0-1.1); MONO % 9 % (0-9); NEUT # 3.5 x10^3uL (1.8-7.7); NEUT % 60 % (31-73); PLATELET COUNT 128 x10^3/uL (140-400); RED BLOOD COUNT 4.08 x10^6/uL (4.30-5.70); RED CELL DISTRIBUTION WIDTH 12.8 % (11.5-14.5); WHITE BLOOD COUNT 5.9 x10^3/uL (4.0-11.0)
[2018-09-01 13:36] LABS: ALBUMIN 3.8 g/dL (3.4-5.0); ALBUMIN/GLOBULIN RATIO 1.4 (1.0-1.7); CALCIUM 8.5 mg/dL (8.5-10.1); CREATININE 1.3 mg/dL (0.7-1.3); GFR 56.3; POTASSIUM 4.7 mmol/L (3.5-5.1); TOTAL BILIRUBIN 0.3 mg/dL (0.2-1.0); TOTAL PROTEIN 6.5 g/dL (6.4-8.2)
[2018-09-01 16:16] VITALS: BP 155/73
[2018-09-01] MEDS: FAMOTIDINE 20 MG TABLET PO SCH (19:14)
[2018-09-01] MEDS: ATORVASTATIN CALCIUM 10 MG TABLET. PO SCH (19:14)
[2018-09-01] MEDS: MELATONIN 3 MG TABLET PO SCH (19:14)
[2018-09-01] MEDS: TAMSULOSIN 0.4 MG CAP.ER.24H. PO SCH (19:14)
[2018-09-01] MEDS: QUEtiapine 50 MG TABLET. PO SCH (19:15)
--- NOTE | 2018-09-01 20:29 | PN ---
DATE: 08/31/2018 PSYCHIATRIC PROGRESS NOTE This late entry 08/31/2018 covers elements not covered in my initial note. SUBJECTIVE: I met with the patient in the evening. I met with him in his room. The patient slept 7 hours previous night. He remains somewhat angry, irritable, especially after one of the other demented patients took his jacket. He also gets upset about his insulin per nursing staff, always looking at negative in every situation. Addressed this at some length with him individually. REVIEW OF SYSTEMS: Vague somatic symptoms. No CV, , pulmonary, eye, ENT system symptoms on review. MENTAL STATUS EXAM: Reasonably oriented. Speech is coherent, abstraction fair, computation impaired, language function intact, attention span short. Mood and affect, somewhat anxious, at times labile. LABORATORY DATA: Reviewed. IMPRESSION: Unchanged from initial note. PLAN: No change from initial note. MAN Nathan WOODS MD DR: CEM/augusto JOB#: [id number] / [id number]
[2018-09-02] MEDS: LEVOTHYROXINE 150 MCG TABLET PO SCH (04:53)
[2018-09-02 05:38] VITALS: BP 124/65
[2018-09-02] MEDS: INSULIN GLARGINE 300 UNITS/3 ML INSULN.PEN. SQ SCH ×2 (07:36→20:04)
[2018-09-02] MEDS: INSULIN LISPRO 300 UNITS/3 ML INSULN.PEN. SQ SCH ×6 (07:37→17:16)
[2018-09-02] MEDS: LISINOPRIL 5 MG TABLET. PO SCH ×2 (07:39→20:01)
[2018-09-02] MEDS: FERROUS SULFATE 325 MG TABLET. PO SCH ×2 (07:39→20:02)
[2018-09-02] MEDS: busPIRone 15 MG TABLET. PO SCH ×2 (07:39→15:34)
[2018-09-02] MEDS: CYANOCOBALAMIN (VITAMIN B-12) 1,000 MCG TABLET. PO SCH (07:39)
[2018-09-02] MEDS: CETIRIZINE HCL 10 MG TABLET PO SCH (07:39)
[2018-09-02] MEDS: THIAMINE 100 MG TABLET. PO SCH (07:40)
[2018-09-02] MEDS: NICOTINE 14MG PATCH. TD SCH (07:40)
[2018-09-02] MEDS: buPROPion XL 300 MG TAB.ER.24H. PO SCH (07:40)
[2018-09-02] MEDS: CHOLECALCIFEROL (VITAMIN D3) 1,000 UNIT TABLET PO SCH (07:40)
[2018-09-02] MEDS: ASPIRIN ENTERIC COATED 81 MG TABLET.DR. PO SCH (07:40)
[2018-09-02] MEDS: GABAPENTIN 300 MG CAPSULE. PO SCH ×2 (07:55→20:12)
[2018-09-02] MEDS: ACETAMINOPHEN 500 MG TABLET PO PRN (08:20)
--- NOTE | 2018-09-02 09:06 | PDOC ---
Exam Note: Jaime Note: Late entry for DOS 09.01.2018. Please also refer to the separate dictated note~ for this date of service dictated separately.~Patient seen individually. Discussed the patient with Nursing staff reviewed the chart.~Reviewed interim history and current functioning. Reviewed vital signs,~Labs/ Radiology~and current medications noted below. Continue current treatment with the changes noted in the dictated addendum note Assessment: Vital Signs: VS - Last 72 Hours, by Label Date Time Temp Pulse Resp B/P (MAP) Pulse Ox O2 Delivery O2 Flow Rate FiO2 09/02/18 07:39 55 124/65 09/02/18 05:38 98.0 55 20 124/65 (84) 98 09/01/18 19:14 66 155/73 09/01/18 16:16 97.3 66 18 155/73 (100) 99 09/01/18 08:38 56 111/64 09/01/18 05:58 98.0 56 16 111/64 (80) 98 08/31/18 20:59 53 122/74 08/31/18 16:52 98.7 53 16 122/74 (90) 98 08/31/18 07:54 70 109/64 08/31/18 06:34 98.0 53 18 109/64 (79) 98 Room Air 08/30/18 19:43 87 124/73 08/30/18 16:39 98.0 87 20 124/73 (90) 98 Vital Signs Date Time Temp Pulse Resp B/P (MAP) Pulse Ox O2 Delivery O2 Flow Rate FiO2 09/02/18 07:39 55 124/65 09/02/18 05:38 98.0 20 98 08/31/18 06:34 Room Air I&O Intake and Output 09/02/18 07:00 Intake Total 1440 ml Balance 1440 ml Intake Oral 1440 ml # Voids 1 Labs: Laboratory Tests Test 09/01/18 11:47 09/01/18 13:13 09/01/18 16:56 09/01/18 19:20 Glucose (Fingerstick) 109 mg/dL (70-99) H 130 mg/dL (70-99) H 197 mg/dL (70-99) H White Blood Count 5.9 x10^3/uL (4.0-11.0) Red Blood Count 4.08 x10^6/uL (4.30-5.70) L Hemoglobin 12.7 g/dL (13.0-17.5) L Hematocrit 37.6 % (39.0-53.0) L Mean Corpuscular Volume 92 fL (79-100) Mean Corpuscular Hemoglobin 31 pg (25-35) Mean Corpuscular Hemoglobin Concent 34 g/dL (31-37) Red Cell Distribution Width 12.8 % (11.5-14.5) Platelet Count 128 x10^3/uL (140-400) L Neutrophils (%) (Auto) 60 % (31-73) Lymphocytes (%) (Auto) 28 % (24-48) Monocytes (%) (Auto) 9 % (0-9) Eosinophils (%) (Auto) 3 % (0-3) Basophils (%) (Auto) 1 % (0-3) Neutrophils # (Auto) 3.5 x10^3uL (1.8-7.7) Lymphocytes # (Auto) 1.6 x10^3/uL (1.0-4.8) Monocytes # (Auto) 0.6 x10^3/uL (0.0-1.1) Eosinophils # (Auto) 0.1 x10^3/uL (0.0-0.7) Basophils # (Auto) 0.0 x10^3/uL (0.0-0.2) Sodium Level 140 mmol/L (136-145) Potassium Level 4.7 mmol/L (3.5-5.1) Chloride Level 106 mmol/L (98-107) Carbon Dioxide Level 28 mmol/L (21-32) Anion Gap 6 (6-14) Blood Urea Nitrogen 18 mg/dL (8-26) Creatinine 1.3 mg/dL (0.7-1.3) Estimated GFR (Cockcroft-Gault) 56.3 BUN/Creatinine Ratio 14 (6-20) Glucose Level 133 mg/dL (70-99) H Calcium Level 8.5 mg/dL (8.5-10.1) Total Bilirubin 0.3 mg/dL (0.2-1.0) Aspartate Amino Transferase (AST) 22 U/L (15-37) Alanine Aminotransferase (ALT) 61 U/L (16-63) Alkaline Phosphatase 79 U/L (46-116) Total Protein 6.5 g/dL (6.4-8.2) Albumin 3.8 g/dL (3.4-5.0) Albumin/Globulin Ratio 1.4 (1.0-1.7) Test 09/02/18 07:17 Glucose (Fingerstick) 151 mg/dL (70-99) H Current Medications: Meds: Current Medications Acetaminophen (Tylenol) 650 mg PRN Q6HRS PRN PO PAIN / TEMP; Start 08/19/18 at 15:15; Status Cancel Multi-Ingredient Ointment (Analgesic [place]) 1 del PRN QID PRN TP MUSCLE PAIN; Start 08/19/18 at 15:15 Al Hydroxide/Mg Hydroxide (Mylanta Plus Xs) 15 ml PRN AFTMEALHC PRN PO DYSPEPSIA; Start 08/19/18 at 15:15 Magnesium Hydroxide (Milk Of Magnesia) 2,400 mg PRN QHS PRN PO CONSTIPATION; Start 08/19/18 at 15:15 Nicotine (Nicoderm Cq 14mg) 1 patch DAILY TD Last administered on 09/02/18 07: 40; Start 08/20/18 at 09:00 Acetaminophen (Tylenol) 500 mg PRN Q6HRS PRN PO PAIN Last administered on 08:20; Start 08/19/18 at 16:00 Vitamin D (Vitamin D3) 1,000 unit DAILY PO Last administered on 09/02/18 07:40 ; Start 08/20/18 at 09:00 Cyanocobalamin (Vitamin B-12) 1,000 mcg DAILY PO Last administered on 07:39; Start 08/20/18 at 09:00 Ferrous Sulfate (Feosol) 325 mg BID PO Last administered on 09/02/18 07:39; Start 08/19/18 at 21:00 Tamsulosin HCl (Flomax) 0.4 mg HS PO Last administered on 09/01/18 19:14; Start 08/19/18 at 21:00 Aspirin (Aspirin Enteric Coated) 81 mg DAILY PO Last administered on 09/02/18 07:40; Start 08/20/18 at 09:00 Atorvastatin Calcium (Lipitor) 10 mg QHS PO Last administered on 09/01/18 19: 14; Start 08/19/18 at 21:00 Bupropion HCl (Wellbutrin Xl) 150 mg DAILY PO Last administered on 08/27/18 07: 59; Start 08/20/18 at 09:00; Stop 08/27/18 at 14:20; Status DC Gabapentin (Neurontin) 300 mg BID PO Last administered on 09/02/18 07:55; Start 08/19/18 at 21:00 Levothyroxine Sodium (Synthroid) 150 mcg DAILY06 PO Last administered on 04:53; Start 08/20/18 at 06:00 Lisinopril (Prinivil) 5 mg BID PO Last administered on 09/02/18 07:39; Start 08/19/18 at 21:00 Loperamide HCl (Imodium) 2 mg PRN Q4HRS PRN PO DIARRHEA; Start 08/19/18 at 16: 15 Cetirizine HCl (ZyrTEC) 10 mg DAILY PO Last administered on 09/02/18 07:39; Start 08/20/18 at 09:00 Melatonin 6 mg QHS PO Last administered on 09/01/18at 19:14; Start 08/19/18 at 21:00 Potassium Chloride (Klor-Con) 20 meq DAILY PO Last administered on 08/28/18 08: 15; Start 08/20/18 at 09:00; Stop 08/29/18 at 19:35; Status DC Famotidine (Pepcid) 20 mg QHS PO Last administered on 09/01/18at 19:14; Start at 21:00 Simethicone (Gas-X) 120 mg PRN Q6HRS PRN PO GAS / BLOATING; Start 08/19/18 at 16:15 Thiamine HCl (Vitamin B-1) 100 mg DAILY PO Last administered on 09/02/18 07:40 ; Start 08/20/18 at 09:00 Insulin Glargine (Lantus) 14 units QHS SQ Last administered on 08/19/18at 20:27 ; Start 08/19/18 at 21:00; Stop 08/20/18 at 12:53; Status DC Non-Formulary Medication (Insulin Lispro (Humalog)) 5 unit TIDAC SQ ; Start at 07:30; Stop 08/20/18 at 07:30; Status DC Insulin Human Lispro (HumaLOG) 5 units TIDAC SQ Last administered on 08/20/18at 12:13; Start 08/19/18 at 17:30; Stop 08/20/18 at 12:53; Status DC Insulin Glargine (Lantus) 14 units BID SQ Last administered on 09/02/18at 07:36 ; Start 08/20/18 at 21:00 Insulin Human Lispro (HumaLOG) 8 units TIDAC SQ Last administered on 09/02/18at 07:37; Start 08/20/18 at 16:30 Quetiapine Fumarate (SEROquel) 50 mg QHS PO Last administered on 08/31/18at 20: 59; Start 08/21/18 at 21:00; Stop 09/01/18 at 17:15; Status DC Insulin Human Lispro (HumaLOG) 0-9 UNITS TIDWMEALS SQ Last administered on at 08:00; Start 08/24/18 at 17:00; Stop 08/29/18 at 11:50; Status DC Dextrose 12.5 gm PRN Q15MIN PRN IV SEE COMMENTS; Start 08/24/18 at 16:00 Glucose (Insta-Glucose) 15 gm PRN Q15MIN PRN PO LOW BLOOD SUGAR; Start 08/24/18 at 16:00 Buspirone HCl (Buspar) 10 mg BID@0900,1700 PRN PO ANXIETY Last administered on 08/28/18at 08:15; Start 08/27/18 at 09:00; Stop 08/28/18 at 18:04; Status DC Bupropion HCl (Wellbutrin Xl) 300 mg DAILY PO Last administered on 09/02/18at 07 :40; Start 08/28/18 at 09:00 Buspirone HCl (Buspar) 10 mg BID@0900,1500 PO Last administered on 08/29/18at 16: 28; Start 08/29/18 at 09:00; Stop 08/29/18 at 23:50; Status DC Buspirone HCl (Buspar) 15 mg 0900,1500 PO Last administered on 09/02/18at 07:39 ; Start 08/30/18 at 09:00 Insulin Human Lispro (HumaLOG) 0-5 UNITS TIDWMEALS SQ Last administered on 09/02at 07:37; Start 08/29/18 at 12:00 Dextrose 12.5 gm PRN Q15MIN PRN IV SEE COMMENTS; Start 08/29/18 at 11:45; Status UNV Quetiapine Fumarate (SEROquel) 75 mg QHS PO Last administered on 09/01/18at 19: 15; Start 09/01/18 at 21:00 Active Scripts Active Reported Humalog (Insulin Lispro) 100 Unit/1 Ml Vial 5 Unit SQ TIDAC Lantus Solostar (Insulin Glargine,Hum.rec.anlog) 100 Unit/1 Ml Insuln.pen 14 Unit SQ QHS Gas Relief (Simethicone) 125 Mg Tab.chew 125 Mg PO Q6HRS PRN Tylenol (Acetaminophen) 325 Mg Tablet 500 Mg PO Q6HRS PRN Aspir-Low (Aspirin) 81 Mg Tablet.dr 1 Tab PO DAILY Lisinopril 5 Mg Tablet 1 Tab PO BID Ferrous Sulfate 325 Mg Tablet 1 Tab PO BID Vitamin B-1 (Thiamine Hcl) 100 Mg Tablet 100 Mg PO DAILY Potassium Chloride 10 Meq Tablet.er 20 Meq PO DAILY Loratadine 10 Mg Tablet 1 Tab PO DAILY Vitamin B-12 (Cyanocobalamin (Vitamin B-12)) 1,000 Mcg Tablet 1 Tab PO DAILY Vitamin D3 (Cholecalciferol (Vitamin D3)) 1,000 Unit Tablet 1 Tab PO DAILY Loperamide (Loperamide Hcl) 2 Mg Capsule 2 Mg PO Q4HRS PRN Ranitidine Hcl 150 Mg Tablet 1 Tab PO HS Gabapentin 300 Mg Capsule 1 Cap PO BID Tamsulosin Hcl 0.4 Mg Cap.er.24h 1 Cap PO HS Melatonin 3 Mg Tablet 5 Mg PO HS Synthroid (Levothyroxine Sodium) 150 Mcg Tablet 1 Tab PO DAILY06 Bupropion Hcl Sr (Bupropion Hcl) 150 Mg Tablet.er 1 Tab PO DAILY Atorvastatin Calcium 10 Mg Tablet 1 Tab PO HS I have reviewed the current psychotropics carefully including drug interactions. Risk benefit ratio favors no change other than as noted in my dictated progress note. Diagnosis: Problems: (1) Hypoglycemia (2) Behavioral problem (3) Bipolar 1 disorder, mixed, moderate (4) Impulse control disorder (5) Major depressive disorder, recurrent episode (6) Personality disorder in adult JEB WOODS MDb 12, 2019 09:06
[2018-09-02] MEDS ORDERED: NYSTATIN TOPICAL POWDER 15GM BOTTLE. TP PRN (10:30)
[2018-09-02 15:01] VITALS: BP 121/69
--- NOTE | 2018-09-02 18:39 | PN ---
DATE: 09/01/2018 PSYCHIATRIC PROGRESS NOTE This late entry for 09/01/2018 covers elements not covered in my initial note. SUBJECTIVE: I met with the patient in the evening. I met with him in his room at great length. He slept 6-1/2 hours previous night, compliant with medications, somewhat irritable at dinnertime when his dessert fell on his tray. I have shared with him the presenting symptom, sexually inappropriate [facility] when the agitation, aggression that prompted this admission. We had a lengthy discussion about this. He totally minimizes, denies rationalizes, "I am not that kind of person." We did address how he seemed to be doing better, still anxious, irritable at times. REVIEW OF SYSTEMS: He has vague somatic symptoms. No CV, , pulmonary, eye, ENT system symptoms on review. MENTAL STATUS EXAM: Oriented to himself, situation reasonably oriented. Speech coherent, somewhat circumstantial in his thought processes. His abstraction is fair, computation impaired, language function intact, attention span short. Mood and affect remain somewhat anxious, at times labile, but improved. LABORATORY DATA: Reviewed. IMPRESSION: Unchanged from initial note. PLAN: No change from initial note. JEB WOODS MD DR: CEM/augusto JOB#: [id number] / [id number]
[2018-09-02] MEDS: MELATONIN 3 MG TABLET PO SCH (19:59)
[2018-09-02] MEDS: QUEtiapine 50 MG TABLET. PO SCH (20:00)
[2018-09-02] MEDS: TAMSULOSIN 0.4 MG CAP.ER.24H. PO SCH (20:01)
[2018-09-02] MEDS: ATORVASTATIN CALCIUM 10 MG TABLET. PO SCH (20:02)
[2018-09-02] MEDS: FAMOTIDINE 20 MG TABLET PO SCH (20:02)
--- NOTE | 2018-09-02 22:31 | PDOC ---
Exam Note: Jaime Note: Please also refer to the separate dictated note~for this date of service dictated separately.~Patient seen individually. Discussed the patient with Nursing staff reviewed the chart.~Reviewed interim history and current functioning. Reviewed vital signs,~Labs/ Radiology~and current medications noted below. Continue current treatment with the changes noted in the dictated addendum note Assessment: Vital Signs: Vital Signs Date Time Temp Pulse Resp B/P (MAP) Pulse Ox O2 Delivery O2 Flow Rate FiO2 09/02/18 20:01 63 121/69 09/02/18 15:01 98.7 19 98 08/31/18 06:34 Room Air I&O Intake and Output 09/02/18 07:00 Intake Total 1440 ml Balance 1440 ml Intake Oral 1440 ml # Voids 1 # Bowel Movements 1 Labs: Laboratory Tests Test 09/02/18 07:17 09/02/18 12:08 09/02/18 17:02 09/02/18 19:37 Glucose (Fingerstick) 151 mg/dL (70-99) H 194 mg/dL (70-99) H 238 mg/dL (70-99) H 72 mg/dL (70-99) Current Medications: Meds: Current Medications Acetaminophen (Tylenol) 650 mg PRN Q6HRS PRN PO PAIN / TEMP; Start 08/19/18 at 15:15; Status Cancel Multi-Ingredient Ointment (Analgesic [place]) 1 del PRN QID PRN TP MUSCLE PAIN; Start 08/19/18 at 15:15 Al Hydroxide/Mg Hydroxide (Mylanta Plus Xs) 15 ml PRN AFTMEALHC PRN PO DYSPEPSIA; Start 08/19/18 at 15:15 Magnesium Hydroxide (Milk Of Magnesia) 2,400 mg PRN QHS PRN PO CONSTIPATION; Start 08/19/18 at 15:15 Nicotine (Nicoderm Cq 14mg) 1 patch DAILY TD Last administered on 09/02/18at 07: 40; Start 08/20/18 at 09:00 Acetaminophen (Tylenol) 500 mg PRN Q6HRS PRN PO PAIN Last administered on at 08:20; Start 08/19/18 at 16:00 Vitamin D (Vitamin D3) 1,000 unit DAILY PO Last administered on 09/02/18at 07:40 ; Start 08/20/18 at 09:00 Cyanocobalamin (Vitamin B-12) 1,000 mcg DAILY PO Last administered on 07:39; Start 08/20/18 at 09:00 Ferrous Sulfate (Feosol) 325 mg BID PO Last administered on 09/02/18 20:02; Start 08/19/18 at 21:00 Tamsulosin HCl (Flomax) 0.4 mg HS PO Last administered on 09/02/18 20:01; Start 08/19/18 at 21:00 Aspirin (Aspirin Enteric Coated) 81 mg DAILY PO Last administered on 09/02/18 07:40; Start 08/20/18 at 09:00 Atorvastatin Calcium (Lipitor) 10 mg QHS PO Last administered on 09/02/18 20: 02; Start 08/19/18 at 21:00 Bupropion HCl (Wellbutrin Xl) 150 mg DAILY PO Last administered on 08/27/18 07: 59; Start 08/20/18 at 09:00; Stop 08/27/18 at 14:20; Status DC Gabapentin (Neurontin) 300 mg BID PO Last administered on 09/02/18 20:12; Start 08/19/18 at 21:00 Levothyroxine Sodium (Synthroid) 150 mcg DAILY06 PO Last administered on 04:53; Start 08/20/18 at 06:00 Lisinopril (Prinivil) 5 mg BID PO Last administered on 09/02/18 20:01; Start 08/19/18 at 21:00 Loperamide HCl (Imodium) 2 mg PRN Q4HRS PRN PO DIARRHEA; Start 08/19/18 at 16: 15 Cetirizine HCl (ZyrTEC) 10 mg DAILY PO Last administered on 09/02/18 07:39; Start 08/20/18 at 09:00 Melatonin 6 mg QHS PO Last administered on 09/02/18 19:59; Start 08/19/18 at 21:00 Potassium Chloride (Klor-Con) 20 meq DAILY PO Last administered on 08/28/18 08: 15; Start 08/20/18 at 09:00; Stop 08/29/18 at 19:35; Status DC Famotidine (Pepcid) 20 mg QHS PO Last administered on 09/02/18at 20:02; Start at 21:00 Simethicone (Gas-X) 120 mg PRN Q6HRS PRN PO GAS / BLOATING; Start 08/19/18 at 16:15 Thiamine HCl (Vitamin B-1) 100 mg DAILY PO Last administered on 09/02/18at 07:40 ; Start 08/20/18 at 09:00 Insulin Glargine (Lantus) 14 units QHS SQ Last administered on 08/19/18at 20:27 ; Start 08/19/18 at 21:00; Stop 08/20/18 at 12:53; Status DC Non-Formulary Medication (Insulin Lispro (Humalog)) 5 unit TIDAC SQ ; Start at 07:30; Stop 08/20/18 at 07:30; Status DC Insulin Human Lispro (HumaLOG) 5 units TIDAC SQ Last administered on 08/20/18at 12:13; Start 08/19/18 at 17:30; Stop 08/20/18 at 12:53; Status DC Insulin Glargine (Lantus) 14 units BID SQ Last administered on 09/02/18at 20:04 ; Start 08/20/18 at 21:00 Insulin Human Lispro (HumaLOG) 8 units TIDAC SQ Last administered on 09/02/18at 17:14; Start 08/20/18 at 16:30 Quetiapine Fumarate (SEROquel) 50 mg QHS PO Last administered on 08/31/18at 20: 59; Start 08/21/18 at 21:00; Stop 09/01/18 at 17:15; Status DC Insulin Human Lispro (HumaLOG) 0-9 UNITS TIDWMEALS SQ Last administered on at 08:00; Start 08/24/18 at 17:00; Stop 08/29/18 at 11:50; Status DC Dextrose 12.5 gm PRN Q15MIN PRN IV SEE COMMENTS; Start 08/24/18 at 16:00 Glucose (Insta-Glucose) 15 gm PRN Q15MIN PRN PO LOW BLOOD SUGAR; Start 08/24/18 at 16:00 Buspirone HCl (Buspar) 10 mg BID@0900,1700 PRN PO ANXIETY Last administered on 08/28/18 08:15; Start 08/27/18 at 09:00; Stop 08/28/18 at 18:04; Status DC Bupropion HCl (Wellbutrin Xl) 300 mg DAILY PO Last administered on 09/02/18 07 :40; Start 08/28/18 at 09:00 Buspirone HCl (Buspar) 10 mg BID@0900,1500 PO Last administered on 08/29/18 16: 28; Start 08/29/18 at 09:00; Stop 08/29/18 at 23:50; Status DC Buspirone HCl (Buspar) 15 mg 0900,1500 PO Last administered on 09/02/18 15:34 ; Start 08/30/18 at 09:00 Insulin Human Lispro (HumaLOG) 0-5 UNITS TIDWMEALS SQ Last administered on 09/02 17:16; Start 08/29/18 at 12:00 Dextrose 12.5 gm PRN Q15MIN PRN IV SEE COMMENTS; Start 08/29/18 at 11:45; Status UNV Quetiapine Fumarate (SEROquel) 75 mg QHS PO Last administered on 09/02/18 20: 00; Start 09/01/18 at 21:00 Nystatin (Nystop) 1 del BID PRN TP REDNESS Last administered on 09/02/18at 10:51 ; Start 09/02/18 at 10:30 Active Scripts Active Reported Humalog (Insulin Lispro) 100 Unit/1 Ml Vial 5 Unit SQ TIDAC Lantus Solostar (Insulin Glargine,Hum.rec.anlog) 100 Unit/1 Ml Insuln.pen 14 Unit SQ QHS Gas Relief (Simethicone) 125 Mg Tab.chew 125 Mg PO Q6HRS PRN Tylenol (Acetaminophen) 325 Mg Tablet 500 Mg PO Q6HRS PRN Aspir-Low (Aspirin) 81 Mg Tablet. 1 Tab PO DAILY Lisinopril 5 Mg Tablet 1 Tab PO BID Ferrous Sulfate 325 Mg Tablet 1 Tab PO BID Vitamin B-1 (Thiamine Hcl) 100 Mg Tablet 100 Mg PO DAILY Potassium Chloride 10 Meq Tablet.er 20 Meq PO DAILY Loratadine 10 Mg Tablet 1 Tab PO DAILY Vitamin B-12 (Cyanocobalamin (Vitamin B-12)) 1,000 Mcg Tablet 1 Tab PO DAILY Vitamin D3 (Cholecalciferol (Vitamin D3)) 1,000 Unit Tablet 1 Tab PO DAILY Loperamide (Loperamide Hcl) 2 Mg Capsule 2 Mg PO Q4HRS PRN Ranitidine Hcl 150 Mg Tablet 1 Tab PO HS Gabapentin 300 Mg Capsule 1 Cap PO BID Tamsulosin Hcl 0.4 Mg Cap.er.24h 1 Cap PO HS Melatonin 3 Mg Tablet 5 Mg PO HS Synthroid (Levothyroxine Sodium) 150 Mcg Tablet 1 Tab PO DAILY06 Bupropion Hcl Sr (Bupropion Hcl) 150 Mg Tablet.er 1 Tab PO DAILY Atorvastatin Calcium 10 Mg Tablet 1 Tab PO HS I have reviewed the current psychotropics carefully including drug interactions. Risk benefit ratio favors no change other than as noted in my dictated progress note. Diagnosis: Problems: (1) Hypoglycemia (2) Behavioral problem (3) Bipolar 1 disorder, mixed, moderate (4) Impulse control disorder (5) Major depressive disorder, recurrent episode (6) Personality disorder in adult JEB WOODS MD Sep 02, 2018 22:31
[2018-09-03] MEDS: LEVOTHYROXINE 150 MCG TABLET PO SCH (05:49)
[2018-09-03 05:52] VITALS: BP 139/74
[2018-09-03] MEDS: INSULIN LISPRO 300 UNITS/3 ML INSULN.PEN. SQ SCH ×6 (07:52→18:08)
[2018-09-03] MEDS: INSULIN GLARGINE 300 UNITS/3 ML INSULN.PEN. SQ SCH ×2 (07:53→19:50)
[2018-09-03] MEDS: GABAPENTIN 300 MG CAPSULE. PO SCH ×2 (07:54→19:45)
[2018-09-03] MEDS: NICOTINE 14MG PATCH. TD SCH (07:54)
[2018-09-03] MEDS: LISINOPRIL 5 MG TABLET. PO SCH ×2 (07:54→19:46)
[2018-09-03] MEDS: buPROPion XL 300 MG TAB.ER.24H. PO SCH (07:55)
[2018-09-03] MEDS: CHOLECALCIFEROL (VITAMIN D3) 1,000 UNIT TABLET PO SCH (07:55)
[2018-09-03] MEDS: THIAMINE 100 MG TABLET. PO SCH (07:55)
[2018-09-03] MEDS: FERROUS SULFATE 325 MG TABLET. PO SCH ×2 (07:55→19:44)
[2018-09-03] MEDS: ASPIRIN ENTERIC COATED 81 MG TABLET.DR. PO SCH (07:55)
[2018-09-03] MEDS: CETIRIZINE HCL 10 MG TABLET PO SCH (07:55)
[2018-09-03] MEDS: busPIRone 15 MG TABLET. PO SCH ×2 (07:55→14:51)
[2018-09-03] MEDS: CYANOCOBALAMIN (VITAMIN B-12) 1,000 MCG TABLET. PO SCH (07:55)
[2018-09-03 16:03] VITALS: BP 133/68
[2018-09-03] MEDS: MELATONIN 3 MG TABLET PO SCH (19:44)
[2018-09-03] MEDS: TAMSULOSIN 0.4 MG CAP.ER.24H. PO SCH (19:44)
[2018-09-03] MEDS: FAMOTIDINE 20 MG TABLET PO SCH (19:44)
[2018-09-03] MEDS: ATORVASTATIN CALCIUM 10 MG TABLET. PO SCH (19:44)
[2018-09-03] MEDS: QUEtiapine 50 MG TABLET. PO SCH (19:45)
--- NOTE | 2018-09-03 21:29 | PN ---
DATE: 09/03/2018 PSYCHIATRIC PROGRESS NOTE This late entry 09/02/2018 covers elements, not covered in my initial note. SUBJECTIVE: I met with the patient in the evening. The patient slept 7 hours previous night. Overall, he has been doing reasonably well on the unit, but remains very negative, always finding something wrong with different activities. Again, as I met with him individually at length in the evening, we discussed circumstances prompting admission, the fact that he may not be able to return to the [facility], he came from alternate placement, is being sought per social service staff. REVIEW OF SYSTEMS: No CV, , pulmonary, eye system symptoms on review. MENTAL STATUS EXAM: Oriented to himself and situation. Speech coherent, somewhat circumstantial. Abstraction fair, computation impaired, language function intact, attention span short. Mood and affect somewhat anxious, labile at times. LABORATORY DATA: Reviewed. IMPRESSION: Unchanged from initial note. PLAN: No change from initial note. JEB WOODS MD DR: CEM/augusto JOB#: [id number] / [id number]
--- NOTE | 2018-09-03 22:12 | PDOC ---
Exam Note: Jaime Note: Please also refer to the separate dictated note~for this date of service dictated separately.~Patient seen individually. Discussed the patient with Nursing staff reviewed the chart.~Reviewed interim history and current functioning. Reviewed vital signs,~Labs/ Radiology~and current medications noted below. Continue current treatment with the changes noted in the dictated addendum note Assessment: Vital Signs: Vital Signs Date Time Temp Pulse Resp B/P (MAP) Pulse Ox O2 Delivery O2 Flow Rate FiO2 09/03/18 19:46 65 133/68 09/03/18 16:03 98.6 16 93 08/31/18 06:34 Room Air I&O Intake and Output 09/03/18 07:00 Intake Total 1080 ml Balance 1080 ml Intake Oral 1080 ml Labs: Laboratory Tests Test 09/03/18 07:35 09/03/18 11:38 09/03/18 16:26 09/03/18 19:11 Glucose (Fingerstick) 199 mg/dL (70-99) H 85 mg/dL (70-99) 235 mg/dL (70-99) H 228 mg/dL (70-99) H Current Medications: Meds: Current Medications Acetaminophen (Tylenol) 650 mg PRN Q6HRS PRN PO PAIN / TEMP; Start 08/19/18 at 15:15; Status Cancel Multi-Ingredient Ointment (Analgesic [place]) 1 del PRN QID PRN TP MUSCLE PAIN; Start 08/19/18 at 15:15 Al Hydroxide/Mg Hydroxide (Mylanta Plus Xs) 15 ml PRN AFTMEALHC PRN PO DYSPEPSIA; Start 08/19/18 at 15:15 Magnesium Hydroxide (Milk Of Magnesia) 2,400 mg PRN QHS PRN PO CONSTIPATION; Start 08/19/18 at 15:15 Nicotine (Nicoderm Cq 14mg) 1 patch DAILY TD Last administered on 09/03/18at 07: 54; Start 08/20/18 at 09:00 Acetaminophen (Tylenol) 500 mg PRN Q6HRS PRN PO PAIN Last administered on at 08:20; Start 08/19/18 at 16:00 Vitamin D (Vitamin D3) 1,000 unit DAILY PO Last administered on 09/03/18at 07:55 ; Start 08/20/18 at 09:00 Cyanocobalamin (Vitamin B-12) 1,000 mcg DAILY PO Last administered on 07:55; Start 08/20/18 at 09:00 Ferrous Sulfate (Feosol) 325 mg BID PO Last administered on 09/03/18 19:44; Start 08/19/18 at 21:00 Tamsulosin HCl (Flomax) 0.4 mg HS PO Last administered on 09/03/18 19:44; Start 08/19/18 at 21:00 Aspirin (Aspirin Enteric Coated) 81 mg DAILY PO Last administered on 09/03/18 07:55; Start 08/20/18 at 09:00 Atorvastatin Calcium (Lipitor) 10 mg QHS PO Last administered on 09/03/18 19: 44; Start 08/19/18 at 21:00 Bupropion HCl (Wellbutrin Xl) 150 mg DAILY PO Last administered on 08/27/18 07: 59; Start 08/20/18 at 09:00; Stop 08/27/18 at 14:20; Status DC Gabapentin (Neurontin) 300 mg BID PO Last administered on 09/03/18 19:45; Start 08/19/18 at 21:00 Levothyroxine Sodium (Synthroid) 150 mcg DAILY06 PO Last administered on 05:49; Start 08/20/18 at 06:00 Lisinopril (Prinivil) 5 mg BID PO Last administered on 09/03/18 19:46; Start 08/19/18 at 21:00 Loperamide HCl (Imodium) 2 mg PRN Q4HRS PRN PO DIARRHEA; Start 08/19/18 at 16: 15 Cetirizine HCl (ZyrTEC) 10 mg DAILY PO Last administered on 09/03/18 07:55; Start 08/20/18 at 09:00 Melatonin 6 mg QHS PO Last administered on 09/03/18 19:44; Start 08/19/18 at 21:00 Potassium Chloride (Klor-Con) 20 meq DAILY PO Last administered on 08/28/18 08: 15; Start 08/20/18 at 09:00; Stop 08/29/18 at 19:35; Status DC Famotidine (Pepcid) 20 mg QHS PO Last administered on 2/13/19at 19:44; Start at 21:00 Simethicone (Gas-X) 120 mg PRN Q6HRS PRN PO GAS / BLOATING; Start 08/19/18 at 16:15 Thiamine HCl (Vitamin B-1) 100 mg DAILY PO Last administered on 09/03/18at 07:55 ; Start 08/20/18 at 09:00 Insulin Glargine (Lantus) 14 units QHS SQ Last administered on 08/19/18at 20:27 ; Start 08/19/18 at 21:00; Stop 08/20/18 at 12:53; Status DC Non-Formulary Medication (Insulin Lispro (Humalog)) 5 unit TIDAC SQ ; Start at 07:30; Stop 08/20/18 at 07:30; Status DC Insulin Human Lispro (HumaLOG) 5 units TIDAC SQ Last administered on 08/20/18at 12:13; Start 08/19/18 at 17:30; Stop 08/20/18 at 12:53; Status DC Insulin Glargine (Lantus) 14 units BID SQ Last administered on 09/03/18at 19:50 ; Start 08/20/18 at 21:00 Insulin Human Lispro (HumaLOG) 8 units TIDAC SQ Last administered on 09/03/18at 17:36; Start 08/20/18 at 16:30 Quetiapine Fumarate (SEROquel) 50 mg QHS PO Last administered on 08/31/18at 20: 59; Start 08/21/18 at 21:00; Stop 09/01/18 at 17:15; Status DC Insulin Human Lispro (HumaLOG) 0-9 UNITS TIDWMEALS SQ Last administered on at 08:00; Start 08/24/18 at 17:00; Stop 08/29/18 at 11:50; Status DC Dextrose 12.5 gm PRN Q15MIN PRN IV SEE COMMENTS; Start 08/24/18 at 16:00 Glucose (Insta-Glucose) 15 gm PRN Q15MIN PRN PO LOW BLOOD SUGAR; Start 08/24/18 at 16:00 Buspirone HCl (Buspar) 10 mg BID@0900,1700 PRN PO ANXIETY Last administered on 08/28/18at 08:15; Start 08/27/18 at 09:00; Stop 08/28/18 at 18:04; Status DC Bupropion HCl (Wellbutrin Xl) 300 mg DAILY PO Last administered on 09/03/18 07 :55; Start 08/28/18 at 09:00 Buspirone HCl (Buspar) 10 mg BID@0900,1500 PO Last administered on 08/29/18 16: 28; Start 08/29/18 at 09:00; Stop 08/29/18 at 23:50; Status DC Buspirone HCl (Buspar) 15 mg 0900,1500 PO Last administered on 09/03/18 14:51 ; Start 08/30/18 at 09:00 Insulin Human Lispro (HumaLOG) 0-5 UNITS TIDWMEALS SQ Last administered on 09/03 18:08; Start 08/29/18 at 12:00 Dextrose 12.5 gm PRN Q15MIN PRN IV SEE COMMENTS; Start 08/29/18 at 11:45; Status UNV Quetiapine Fumarate (SEROquel) 75 mg QHS PO Last administered on 09/03/18 19: 45; Start 09/01/18 at 21:00 Nystatin (Nystop) 1 del BID PRN TP REDNESS Last administered on 09/02/18 10:51 ; Start 09/02/18 at 10:30 Active Scripts Active Reported Humalog (Insulin Lispro) 100 Unit/1 Ml Vial 5 Unit SQ TIDAC Lantus Solostar (Insulin Glargine,Hum.rec.anlog) 100 Unit/1 Ml Insuln.pen 14 Unit SQ QHS Gas Relief (Simethicone) 125 Mg Tab.chew 125 Mg PO Q6HRS PRN Tylenol (Acetaminophen) 325 Mg Tablet 500 Mg PO Q6HRS PRN Aspir-Low (Aspirin) 81 Mg Tablet.dr 1 Tab PO DAILY Lisinopril 5 Mg Tablet 1 Tab PO BID Ferrous Sulfate 325 Mg Tablet 1 Tab PO BID Vitamin B-1 (Thiamine Hcl) 100 Mg Tablet 100 Mg PO DAILY Potassium Chloride 10 Meq Tablet.er 20 Meq PO DAILY Loratadine 10 Mg Tablet 1 Tab PO DAILY Vitamin B-12 (Cyanocobalamin (Vitamin B-12)) 1,000 Mcg Tablet 1 Tab PO DAILY Vitamin D3 (Cholecalciferol (Vitamin D3)) 1,000 Unit Tablet 1 Tab PO DAILY Loperamide (Loperamide Hcl) 2 Mg Capsule 2 Mg PO Q4HRS PRN Ranitidine Hcl 150 Mg Tablet 1 Tab PO HS Gabapentin 300 Mg Capsule 1 Cap PO BID Tamsulosin Hcl 0.4 Mg Cap.er.24h 1 Cap PO HS Melatonin 3 Mg Tablet 5 Mg PO HS Synthroid (Levothyroxine Sodium) 150 Mcg Tablet 1 Tab PO DAILY06 Bupropion Hcl Sr (Bupropion Hcl) 150 Mg Tablet.er 1 Tab PO DAILY Atorvastatin Calcium 10 Mg Tablet 1 Tab PO HS I have reviewed the current psychotropics carefully including drug interactions. Risk benefit ratio favors no change other than as noted in my dictated progress note. Diagnosis: Problems: (1) Hypoglycemia (2) Behavioral problem (3) Bipolar 1 disorder, mixed, moderate (4) Impulse control disorder (5) Major depressive disorder, recurrent episode (6) Personality disorder in adult JEB WOODS MD Sep 03, 2018 22:12
[2018-09-04] MEDS ORDERED: DEXT31GE5 PO (03:24)
[2018-09-04] MEDS ORDERED: INSU100V SQ (03:27)
[2018-09-04] MEDS ORDERED: MAG30ORA2 PO (03:30)
[2018-09-04] MEDS ORDERED: MAGN2400 PO (03:30)
[2018-09-04] MEDS ORDERED: METH29OI TP (03:32)
[2018-09-04] MEDS ORDERED: NICO1PAT25 TD (03:33)
[2018-09-04] MEDS ORDERED: NYST15PO9 TP (03:36)
[2018-09-04] MEDS ORDERED: QUET50TA5 PO (03:38)
[2018-09-04] MEDS ORDERED: BUSP15TA PO (03:40)
[2018-09-04] MEDS: LEVOTHYROXINE 150 MCG TABLET PO SCH (05:11)
[2018-09-04 06:02] VITALS: BP 119/68
[2018-09-04] MEDS: THIAMINE 100 MG TABLET. PO SCH (07:51)
[2018-09-04] MEDS: NICOTINE 14MG PATCH. TD SCH ×2 (07:51→09:15)
[2018-09-04] MEDS: CYANOCOBALAMIN (VITAMIN B-12) 1,000 MCG TABLET. PO SCH (07:51)
[2018-09-04] MEDS: busPIRone 15 MG TABLET. PO SCH (07:51)
[2018-09-04] MEDS: FERROUS SULFATE 325 MG TABLET. PO SCH (07:51)
[2018-09-04] MEDS: buPROPion XL 300 MG TAB.ER.24H. PO SCH (07:51)
[2018-09-04 07:52] VITALS: BP 119/68
[2018-09-04] MEDS: CHOLECALCIFEROL (VITAMIN D3) 1,000 UNIT TABLET PO SCH (07:52)
[2018-09-04] MEDS: LISINOPRIL 5 MG TABLET. PO SCH (07:52)
[2018-09-04] MEDS: GABAPENTIN 300 MG CAPSULE. PO SCH (07:52)
[2018-09-04] MEDS: ASPIRIN ENTERIC COATED 81 MG TABLET.DR. PO SCH (07:52)
[2018-09-04] MEDS: CETIRIZINE HCL 10 MG TABLET PO SCH (07:52)
[2018-09-04] MEDS: INSULIN LISPRO 300 UNITS/3 ML INSULN.PEN. SQ SCH ×4 (08:03→12:00)
[2018-09-04] MEDS: INSULIN GLARGINE 300 UNITS/3 ML INSULN.PEN. SQ SCH (08:03)
--- NOTE | 2018-09-04 22:47 | PDOC ---
Exam Note: Jaime Note: Please also refer to the separate dictated note~for this date of service dictated separately.~Patient seen individually. Discussed the patient with Nursing staff reviewed the chart.~Reviewed interim history and current functioning. Reviewed vital signs,~Labs/ Radiology~and current medications noted below. Continue current treatment with the changes noted in the dictated addendum note Assessment: Vital Signs: Vital Signs Date Time Temp Pulse Resp B/P (MAP) Pulse Ox O2 Delivery O2 Flow Rate FiO2 09/04/18 07:52 61 119/68 09/04/18 06:02 97.7 20 98 Room Air I&O Intake and Output 09/04/18 06:59 Intake Total 2040 ml Balance 2040 ml Intake Oral 2040 ml Labs: Laboratory Tests Test 09/04/18 07:46 09/04/18 12:14 09/04/18 12:42 Glucose (Fingerstick) 151 mg/dL (70-99) H 57 mg/dL (70-99) L 94 mg/dL (70-99) Current Medications: Meds: Current Medications Acetaminophen (Tylenol) 650 mg PRN Q6HRS PRN PO PAIN / TEMP; Start 08/19/18 at 15:15; Status Cancel Multi-Ingredient Ointment (Analgesic [place]) 1 akil PRN QID PRN TP MUSCLE PAIN; Start 08/19/18 at 15:15; Stop 09/04/18 at 13:40; Status DC Al Hydroxide/Mg Hydroxide (Mylanta Plus Xs) 15 ml PRN AFTMEALHC PRN PO DYSPEPSIA; Start 08/19/18 at 15:15; Stop 09/04/18 at 13:40; Status DC Magnesium Hydroxide (Milk Of Magnesia) 2,400 mg PRN QHS PRN PO CONSTIPATION; Start 08/19/18 at 15:15; Stop 09/04/18 at 13:40; Status DC Nicotine (Nicoderm Cq 14mg) 1 patch DAILY TD Last administered on 09/03/18at 07: 54; Start 08/20/18 at 09:00; Stop 09/04/18 at 13:40; Status DC Acetaminophen (Tylenol) 500 mg PRN Q6HRS PRN PO PAIN Last administered on at 08:20; Start 08/19/18 at 16:00; Stop 09/04/18 at 13:40; Status DC Vitamin D (Vitamin D3) 1,000 unit DAILY PO Last administered on 09/04/18 07:52 ; Start 08/20/18 at 09:00; Stop 09/04/18 at 13:40; Status DC Cyanocobalamin (Vitamin B-12) 1,000 mcg DAILY PO Last administered on 07:51; Start 08/20/18 at 09:00; Stop 09/04/18 at 13:40; Status DC Ferrous Sulfate (Feosol) 325 mg BID PO Last administered on 09/04/18 07:51; Start 08/19/18 at 21:00; Stop 09/04/18 at 13:40; Status DC Tamsulosin HCl (Flomax) 0.4 mg HS PO Last administered on 09/03/18 19:44; Start 08/19/18 at 21:00; Stop 09/04/18 at 13:40; Status DC Aspirin (Aspirin Enteric Coated) 81 mg DAILY PO Last administered on 09/04/18 07:52; Start 08/20/18 at 09:00; Stop 09/04/18 at 13:40; Status DC Atorvastatin Calcium (Lipitor) 10 mg QHS PO Last administered on 09/03/18 19: 44; Start 08/19/18 at 21:00; Stop 09/04/18 at 13:40; Status DC Bupropion HCl (Wellbutrin Xl) 150 mg DAILY PO Last administered on 08/27/18 07: 59; Start 08/20/18 at 09:00; Stop 08/27/18 at 14:20; Status DC Gabapentin (Neurontin) 300 mg BID PO Last administered on 09/04/18 07:52; Start 08/19/18 at 21:00; Stop 09/04/18 at 13:40; Status DC Levothyroxine Sodium (Synthroid) 150 mcg DAILY06 PO Last administered on 05:11; Start 08/20/18 at 06:00; Stop 09/04/18 at 13:40; Status DC Lisinopril (Prinivil) 5 mg BID PO Last administered on 09/04/18 07:52; Start 08/19/18 at 21:00; Stop 09/04/18 at 13:40; Status DC Loperamide HCl (Imodium) 2 mg PRN Q4HRS PRN PO DIARRHEA; Start 08/19/18 at 16: 15; Stop 09/04/18 at 13:40; Status DC Cetirizine HCl (ZyrTEC) 10 mg DAILY PO Last administered on 09/04/18at 07:52; Start 08/20/18 at 09:00; Stop 09/04/18 at 13:40; Status DC Melatonin 6 mg QHS PO Last administered on 09/03/18at 19:44; Start 08/19/18 at 21:00; Stop 09/04/18 at 13:40; Status DC Potassium Chloride (Klor-Con) 20 meq DAILY PO Last administered on 08/28/18at 08: 15; Start 08/20/18 at 09:00; Stop 08/29/18 at 19:35; Status DC Famotidine (Pepcid) 20 mg QHS PO Last administered on 09/03/18at 19:44; Start at 21:00; Stop 09/04/18 at 13:40; Status DC Simethicone (Gas-X) 120 mg PRN Q6HRS PRN PO GAS / BLOATING; Start 08/19/18 at 16:15; Stop 09/04/18 at 13:40; Status DC Thiamine HCl (Vitamin B-1) 100 mg DAILY PO Last administered on 09/04/18at 07:51 ; Start 08/20/18 at 09:00; Stop 09/04/18 at 13:40; Status DC Insulin Glargine (Lantus) 14 units QHS SQ Last administered on 08/19/18at 20:27 ; Start 08/19/18 at 21:00; Stop 08/20/18 at 12:53; Status DC Non-Formulary Medication (Insulin Lispro (Humalog)) 5 unit TIDAC SQ ; Start at 07:30; Stop 08/20/18 at 07:30; Status DC Insulin Human Lispro (HumaLOG) 5 units TIDAC SQ Last administered on 08/20/18at 12:13; Start 08/19/18 at 17:30; Stop 08/20/18 at 12:53; Status DC Insulin Glargine (Lantus) 14 units BID SQ Last administered on 09/04/18 08:03 ; Start 08/20/18 at 21:00; Stop 09/04/18 at 13:40; Status DC Insulin Human Lispro (HumaLOG) 8 units TIDAC SQ Last administered on 09/04/18at 08:03; Start 08/20/18 at 16:30; Stop 09/04/18 at 13:40; Status DC Quetiapine Fumarate (SEROquel) 50 mg QHS PO Last administered on 08/31/18at 20: 59; Start 08/21/18 at 21:00; Stop 09/01/18 at 17:15; Status DC Insulin Human Lispro (HumaLOG) 0-9 UNITS TIDWMEALS SQ Last administered on at 08:00; Start 08/24/18 at 17:00; Stop 08/29/18 at 11:50; Status DC Dextrose 12.5 gm PRN Q15MIN PRN IV SEE COMMENTS; Start 08/24/18 at 16:00; Stop 09/04/18 at 13:40; Status DC Glucose (Insta-Glucose) 15 gm PRN Q15MIN PRN PO LOW BLOOD SUGAR; Start 08/24/18 at 16:00; Stop 09/04/18 at 13:40; Status DC Buspirone HCl (Buspar) 10 mg BID@0900,1700 PRN PO ANXIETY Last administered on 08/28/18at 08:15; Start 08/27/18 at 09:00; Stop 08/28/18 at 18:04; Status DC Bupropion HCl (Wellbutrin Xl) 300 mg DAILY PO Last administered on 09/04/18at 07 :51; Start 08/28/18 at 09:00; Stop 09/04/18 at 13:40; Status DC Buspirone HCl (Buspar) 10 mg BID@0900,1500 PO Last administered on 08/29/18at 16: 28; Start 08/29/18 at 09:00; Stop 08/29/18 at 23:50; Status DC Buspirone HCl (Buspar) 15 mg 0900,1500 PO Last administered on 09/04/18at 07:51 ; Start 08/30/18 at 09:00; Stop 09/04/18 at 13:40; Status DC Insulin Human Lispro (HumaLOG) 0-5 UNITS TIDWMEALS SQ Last administered on 09/04at 08:05; Start 08/29/18 at 12:00; Stop 09/04/18 at 13:40; Status DC Dextrose 12.5 gm PRN Q15MIN PRN IV SEE COMMENTS; Start 08/29/18 at 11:45; Status UNV Quetiapine Fumarate (SEROquel) 75 mg QHS PO Last administered on 09/03/18at 19: 45; Start 09/01/18 at 21:00; Stop 09/04/18 at 13:40; Status DC Nystatin (Nystop) 1 akil BID PRN TP REDNESS Last administered on 09/02/18at 10:51 ; Start 09/02/18 at 10:30; Stop 09/04/18 at 13:40; Status DC Active Scripts Active Reported Buspirone Hcl 15 Mg Tablet 15 Mg PO [id number] Seroquel (Quetiapine Fumarate) 50 Mg Tablet 75 Mg PO HS Nystatin 15 Gm Powder 1 Akil TP BID NICODERM CQ 14mg (Nicotine) 1 Each Patch.td24 1 Patch TD DAILY Analgesic [place] (Methyl Salicylate/Menthol) 28 Gm Oint...g. 1 Akil TP PRN QID PRN Milk Of Magnesia (Magnesium Hydroxide) 2,400 Mg/10 Ml Oral.susp 2,400 Mg PO PRN DAILY PRN Mag-Al Plus Xs Suspension (Mag Hydrox/Al Hydrox/Simeth) 30 Ml Oral.susp 15 Ml PO PRN AFTMEALHC PRN Humalog (Insulin Lispro) 100 Unit/1 Ml Vial 0-5 Unit SQ TIDWMEALS Insta-Glucose Gel (Dextrose/Dextrin/Maltose) 31 Gm Gel..gram. 15 Gm PO PRN Q15MIN PRN Humalog (Insulin Lispro) 100 Unit/1 Ml Vial 8 Unit SQ TIDAC Lantus Solostar (Insulin Glargine,Hum.rec.anlog) 100 Unit/1 Ml Insuln.pen 14 Unit SQ BID Gas Relief (Simethicone) 125 Mg Tab.chew 125 Mg PO Q6HRS PRN Tylenol (Acetaminophen) 325 Mg Tablet 500 Mg PO Q6HRS PRN Aspir-Low (Aspirin) 81 Mg Tablet.dr 1 Tab PO DAILY Lisinopril 5 Mg Tablet 1 Tab PO BID Ferrous Sulfate 325 Mg Tablet 1 Tab PO BID Vitamin B-1 (Thiamine Hcl) 100 Mg Tablet 100 Mg PO DAILY Loratadine 10 Mg Tablet 1 Tab PO DAILY Vitamin B-12 (Cyanocobalamin (Vitamin B-12)) 1,000 Mcg Tablet 1 Tab PO DAILY Vitamin D3 (Cholecalciferol (Vitamin D3)) 1,000 Unit Tablet 1 Tab PO DAILY Loperamide (Loperamide Hcl) 2 Mg Capsule 2 Mg PO Q4HRS PRN Ranitidine Hcl 150 Mg Tablet 1 Tab PO HS Gabapentin 300 Mg Capsule 1 Cap PO BID Tamsulosin Hcl 0.4 Mg Cap.er.24h 1 Cap PO HS Melatonin 3 Mg Tablet 6 Mg PO HS Synthroid (Levothyroxine Sodium) 150 Mcg Tablet 1 Tab PO DAILY06 Bupropion Hcl Sr (Bupropion Hcl) 150 Mg Tablet.er 300 Mg PO DAILY Atorvastatin Calcium 10 Mg Tablet 1 Tab PO HS I have reviewed the current psychotropics carefully including drug interactions. Risk benefit ratio favors no change other than as noted in my dictated progress note. Diagnosis: Problems: (1) Hypoglycemia (2) Behavioral problem (3) Bipolar 1 disorder, mixed, moderate (4) Impulse control disorder (5) Major depressive disorder, recurrent episode (6) Personality disorder in adult JEB WOODS MD Sep 04, 2018 22:47
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
--- NOTE | 2018-09-05 19:02 | PN ---
DATE: 09/03/2018 PSYCHIATRIC PROGRESS NOTE This late entry 09/03/2018 covers elements not covered in my initial note. SUBJECTIVE: I met with the patient in the evening. The patient slept 8-1/4 hours previous night. He has been somewhat withdrawn, anxious with some thought process problems and circumstantiality evident as I met with him at length in his room, but much less paranoid and more insightful about what prompted this admission. He is less attention seeking per nursing staff. REVIEW OF SYSTEMS: No CV, , pulmonary, eye, ENT system symptoms on review, but he does appear somewhat anxious, constantly moving his legs, sitting on his bed as I sat in the chair in his room during my visit in the evening. Despite this, he was more insightful about what prompted his hospitalization on his progress and future plans. No CV, , pulmonary, eye system symptoms on review. MENTAL STATUS EXAM: Oriented to himself and situation. Speech is coherent, abstraction fair, computation impaired, language function intact, attention span short. Mood and affect somewhat anxious, labile, but much improved. LABORATORY DATA: Reviewed. IMPRESSION: Unchanged from initial note. PLAN: No change from initial note. MAN Nathan WOODS MD DR: CEM/augusto JOB#: [id number] / [id number]
== END 2018-09-04 13:39 | DRG 885 ==
LOC: GEROPSY 15:05
PROVIDERS: ADMIT Psychiatry & Neurology Psychiatry; ATTEND Psychiatry & Neurology Psychiatry
DX: F25.0 Schizoaffective disorder, bipolar type (principal); I62.9 Nontraumatic intracranial hemorrhage, unspecified; F10.231 Alcohol dependence with withdrawal delirium; F63.9 Impulse disorder, unspecified; E11.649 Type 2 diabetes mellitus with hypoglycemia without coma; F41.9 Anxiety disorder, unspecified; F03.90 Unspecified dementia, unspecified severity, without behavioral disturbance, psychotic disturbance, mood disturbance, and anxiety; F09 Unspecified mental disorder due to known physiological condition; F60.9 Personality disorder, unspecified; G40.909 Epilepsy, unspecified, not intractable, without status epilepticus; G47.33 Obstructive sleep apnea (adult) (pediatric); N45.1 Epididymitis; I10 Essential (primary) hypertension; K21.9 Gastro-esophageal reflux disease without esophagitis; N43.3 Hydrocele, unspecified; N50.89 Other specified disorders of the male genital organs; Z87.891 Personal history of nicotine dependence; M19.90 Unspecified osteoarthritis, unspecified site; Z79.899 Other long term (current) drug therapy; Z88.8 Allergy status to other drugs, medicaments and biological substances
CPT/HCPCS: 36415; 76870; 80053; 80061; 82306; 82947; 83036; 83540; 83550; 84436; 84443; 84480; 85025; 86592; 99407; J1815